=== PATIENT | female | born 1950 | race Caucasian/White ===

== ENCOUNTER → 2016-09-04 | Outpatient (CLI) | payer OTHER, MEDICARE ==
[~2016-09-04] MED LIST: ASPCH81X PO; ATOR-26 PO; CHOL20007 PO; CYAN10005 PO; GLIM4TAB2 PO; LEVO50TA6 PO; LSN25 PO; METF-384 PO; METO25TA3 PO; POTA1080 PO; SPR25 PO; SYN50 PO; TRAM-10 PO; URC10 PO
[2016-09-04 10:09] LABS: BASO % 0.3 %; BASO ABS # 0.02 K/uL (0-0.2); COMPLETE YES; EOS % 5.8 %; HEMATOCRIT 40.6 % (37-47); IG% 0.4 %; LYMPH % 30.4 %; MEAN CELL VOLUME 91.4 fL (80-100); MEAN CORPUSCULAR HEMOGLOBIN 30.4 pg (25-34); MEAN CORPUSCULAR HGB CONC 33.3 g/dl (32-36); MEAN PLATELET VOLUME 11.5 fL (7.4-10.4); MONO % 8.4 %; NEUT % 54.7 %; PLATELET COUNT 200 K/uL (130-400); RED BLOOD COUNT 4.44 M/uL (4.2-5.4); WHITE BLOOD COUNT 6.91 K/uL (4.8-10.8)
[2016-09-04 10:13] LABS: ESTIMATED AVERAGE GLUCOSE 180 mg/dl; HA1C FLAG Normal (Normal)
[2016-09-04 10:27] LABS: URINE APPEARANCE CLEAR (CLEAR); URINE BILIRUBIN NEG (NEG); URINE COLOR YELLOW; URINE EPITHELIAL CELL AUTO 20-30 /lpf (0-5); URINE NITRITE NEG (NEG); URINE SPECIFIC GRAVITY 1.021 (1.000-1.030); UROBILINOGEN NEG (NEG)
[2016-09-04 10:40] LABS: MANUAL MICROSCOPIC REQUIRED? NO; REVIEW REQ? NO
[2016-09-04 10:46] LABS: CALCIUM 9.7 mg/dl (8.5-10.1)
[2016-09-04 10:50] LABS: BLOOD UREA NITROGEN 28 mg/dl (7-18); BUN/CREATININE RATIO 20.1 (10-20); CARBON DIOXIDE 29 mmol/L (21-32); CHLORIDE 103 mmol/L (98-107); GLUCOSE 163 mg/dl (70-99); POTASSIUM 4.7 mmol/L (3.5-5.1); SODIUM 139 mmol/L (136-145)
[2016-09-04 10:54] LABS: CHOLESTEROL/HDL RATIO 3.4
--- NOTE | 2016-09-12 07:35 | CODING QUERY MEDICAL NECESSITY ---
CQSUPPORTING DIAGNOSIS NEEDED A supporting diagnosis is required for the test/procedure performed on this patient in order for us to be reimbursed by the patient's insurance. Please provide a supporting diagnosis for the following test/procedure listed below next to the test name along with your signature. *If there is no additional diagnosis for this patient that would support the following test/procedure please document that below next to the test/procedure. Test(s)/Procedure(s) that require a supporting diagnosis: GABRIELA 09/04/16 URINE CULTURE Provider Signature: Date: Thank you Mary Echeverria [employer] Once completed, please kindly fax back to [phone] For questions please call [phone]
== END | disposition home or self-care (01) ==
LOC: C.LAB 09:15
PROVIDERS: ATTEND Internal Medicine Cardiovascular Disease
DX: E11.9 Type 2 diabetes mellitus without complications (principal); E78.00 Pure hypercholesterolemia, unspecified; N39.0 Urinary tract infection, site not specified

== ENCOUNTER → 2017-01-13 | Outpatient (CLI) | payer OTHER, MEDICARE ==
[~2017-01-13] MED LIST changes: -CHOL20007 PO; -CYAN10005 PO; -GLIM4TAB2 PO; -LEVO50TA6 PO; -TRAM-10 PO; -URC10 PO
[2017-01-13 10:57] LABS: BLOOD UREA NITROGEN 31 mg/dl (7-18); BUN/CREATININE RATIO 22.1 (10-20); CALCIUM 9.8 mg/dl (8.5-10.1); CARBON DIOXIDE 29 mmol/L (21-32); CHLORIDE 96 mmol/L (98-107); GLUCOSE 419 mg/dl (70-99); POTASSIUM 4.5 mmol/L (3.5-5.1); SODIUM 134 mmol/L (136-145)
[2017-01-13 10:59] LABS: ESTIMATED AVERAGE GLUCOSE 346 mg/dl; HA1C FLAG Normal (Normal)
[2017-01-13 11:12] LABS: BETA-HYDROXYBUTYRATE 8.64 mg/dL (0.2-2.81)
[2017-01-13 11:50] LABS: RATIO 65.5 mcg/mg (0-30.0)
== END | disposition home or self-care (01) ==
LOC: C.LAB 08:36
PROVIDERS: ATTEND Internal Medicine
DX: E11.9 Type 2 diabetes mellitus without complications (principal)

== ENCOUNTER → 2017-02-03 | Outpatient (CLI) | payer OTHER, MEDICARE | END | disposition home or self-care (01) | LOC: C.LAB 11:37 | PROVIDERS: ATTEND Internal Medicine | DX: E78.00 Pure hypercholesterolemia, unspecified (principal) ==

== ENCOUNTER → 2017-03-27 | Day surgery (SDC) | payer OTHER, MEDICARE ==
[2017-03-19 08:41] VITALS: Ht 158.8 cm; Wt 100.0 kg
[~2017-03-27] VITALS: Ht 158.8 cm; Wt 100.0 kg
[~2017-03-27] MED LIST changes: +ATROPINE SULFATE 0.1 MG/ML 5ML SYR IV PRN; +BUPIVACAINE 0.5 % 5 MG/1 ML PF 10ML VIAL ONE; +CHOL20007 PO; +CLINDAMYCIN PHOS 150 MG/ML 2 ML VIAL IV SCH; +CYAN10005 PO; +EpHEDrine SULFATE INJ 50 MG/ML AMP IV PRN; +FENTANYL CITRATE INJ 50 MCG/1 ML 2 ML VIAL IV PRN; +FENTANYL CITRATE INJ 50 MCG/1 ML 2 ML VIAL ONE; +GLIM4TAB2 PO; +LACTATED RINGER'S 1000ML 1,000 ML IV SCH; +LEVO50TA6 PO; +LIDOCAINE HCL 1% 20 ML VIAL ONE; +LIDOCAINE HCL 2% 2 ML VIAL (20MG/ML) ONE; -LSN25 PO; +MIDAZOLAM HCL 1 MG/ML 2ML VIAL ONE; +ONDANSETRON INJ 2 MG/ML 2 ML VIAL IV PRN; +ONDANSETRON INJ 2 MG/ML 2 ML VIAL ONE; +OXYCODONE/ACETAMINOPHEN 5-325 TAB PO PRN; -POTA1080 PO; +PROPOFOL IV EMULSION 10 MG/ML 20 ML VIAL IV ONE; +SODIUM CHLORIDE 0.9% 1000ML 1,000 ML IV SCH; -SYN50 PO; +TRAM-10 PO; +URC10 PO
--- NOTE | 2017-03-27 06:47 | History & Physical Bridge - SC ---
H&P Re-Evaluation Bridge Note: I have examined the patient, reviewed the History & Physical and in the interval since the performance of the History & Physical I have noted the following changes of clinical significance: No changes noted
[2017-03-27 07:37] VITALS: TEMP 36.6
--- NOTE | 2017-03-27 07:40 | [facility] Post Operative Brief Note ---
Immediate Operative Summary Operative Date Mar 27, 2017. Pre-Operative Diagnosis Left Carpal Tunnel Syndrome Post-Operative Diagnosis Same Procedure(s) Performed Left Carpal Tunnel Release Surgeon Dr. Wells Escalation Engineer Surgeon(s) Mikal Moreno PA-C Estimated Blood Loss 0 Findings ABOVE Specimens None Anesthesia LOCAL IV SEDATION Complication(s) None Disposition
--- NOTE | 2017-03-27 07:44 | Discharge Instructions-SurgCtr ---
Discharge Instructions Date of Service Mar 27, 2017. Visit Reason for Visit: Left Carpal Tunnel Syndrome Discharge Discharge Diagnosis / Problem: SAME ABOVE Discharge Goals Goal(s): Decrease discomfort, Improve function Medications Stopped Medications Name(s): Metformin held x 48 hrs. Activity Recommendations Activity Limitations: as noted below Lifting Limitations: until after follow-up appointment Exercise/Sports Limitations: until after follow-up appointment Shower/Bathe: keep incision dry Anesthesia . Post Anesthesia Instructions: If you have had General Anesthesia or IV Sedation: * Do not drive today. * Resume driving when surgeon permits. * Do not make important decisions or sign legal documents today. * Call surgeon for: 1. Temperature elevations greater than 101 degrees F. 2. Uncontrollable pain. 3. Excessive bleeding. 4. Persistent nausea and vomiting. 5. Medication intolerance (nausea, vomiting or rash). * For nausea and vomiting use only clear liquids such as: tea, soda, bouillon until nausea subsides, then gradually increase diet as tolerated. * If you have any concerns or questions, call your surgeon's office. If physician is unavailable and it is an emergency, call 911 or go to the nearest emergency room. . Instructions / Follow-Up Instructions / Follow-Up MEDICATIONS: * Resume previous medications unless instructed otherwise by your surgeon. * Always take pain medication on a full stomach or with food to avoid upset stomach. * Do not drink alcohol or drive while taking narcotics. * Ibuprofen or Tylenol may be taken if narcotic not needed. SPECIAL CARE INSTRUCTIONS: __ None _X_ Keep extremity elevated and iced x 48 hours; apply ice 20-30 minutes 8-10 times/day. May remove at night. __ Sling __24 hrs/day __ Remove at night __ Shoulder Immobilizer __ 24 hrs/day __ Remove at night _X_ Dressing _X_ Maintain until seen in office, may shower with plastic over site __ Remove dressings in 24-48 hours and then may shower __ Cover incisions with band-aids after showering __ Do not remove steri-strips Call physician if chills or temperature rises above 102 degrees or pain unrelieved by prescribed pain medications at . . Diet Recommendations Home Diet: no limitations Procedures Procedures Performed: Left Carpal Tunnel Release Pending Studies Studies pending at discharge: no Medical Emergencies . Who to Call and When: Medical Emergencies: If at any time you feel your situation is an emergency, please call 911 immediately. . Non-Emergent Contact Non-Emergency issues call your: Primary Care Provider . . "Provider Documentation" section prepared by Kan Moreno. .
--- NOTE | 2017-03-27 07:54 | OPERATIVE REPORT ---
DATE OF OPERATION: 03/27/2017 PREOPERATIVE DIAGNOSIS: Left carpal tunnel syndrome. POSTOPERATIVE DIAGNOSIS: Same. PROCEDURE: Decompression median nerve release transverse carpal ligament, left wrist. SURGEON: Dr. Wells. CURRICULUM ASSISTANT PRINCIPAL: Kan Moreno PA-C. ANESTHESIOLOGIST: Dr. Gonzalez. ANESTHESIA: Local with IV sedation. DRAINS: None. COMPLICATIONS: None. CONDITION: The patient tolerated the procedure well and returned to the recovery room in apparent satisfactory condition. INDICATIONS FOR SURGERY: Zaynab is a 67-year-old female who has had increasing pain, numbness and tingling in left hand consistent with carpal tunnel syndrome. Went over treatment options and she elected to go ahead and proceed with surgery. Procedure, expected outcome, side effects and risks were all explained in detail. PROCEDURE: The patient was taken to the OR at which time she was placed supine on the operating table. The left hand was prepped and draped in the usual sterile fashion for this surgery. The anticipated incision site was infiltrated with 1% Xylocaine. A forearm tourniquet was placed on the arm and tourniquet was placed up to 250 mmHg. Incision was made vertically over the transverse carpal tunnel ligament. Dissection was done down until the palmar fascia was identified and divided with a 15-blade. The transverse carpal ligament was identified and also divided with the 15-blade and upbiting scissors. A small portion of the forearm fascia was divided also. Electrocautery was used to control any areas of bleeding. The nerve was freed up from any scar tissue and adequately decompressed. The wound then was copiously irrigated. It was closed then with interrupted 4-0 nylon sutures. Marcaine without Epinephrine was placed in the skin edges. It was closed in a layered fashion. We placed a sterile dressing of Xeroform, 4 x 4, volar splint, and an Theodroe bandage. DISPOSITION: The patient was returned back to the recovery room in apparent satisfactory condition. I attest to the content of the Intraoperative Record and any orders documented therein. Any exception s are noted below.
[2017-03-27 08:11] VITALS: BP 109/74; PULSE 64; O2SAT 95
--- NOTE | 2017-03-27 08:18 | Anesthesia Progress Nt - [facility] ---
Anesthesia Post Op Note Date & Time Mar 27, 2017 at 08:18 Vital Signs Pain Intensity: 0 Vital Signs Past 12 Hours Date Time Temp Pulse Resp B/P (MAP) Pulse Ox O2 Delivery O2 Flow Rate FiO2 03/27/17 08:11 64 20 109/74 (86) 95 Room Air 03/27/17 07:37 36.6 72 16 100/65 (77) 98 Room Air 03/27/17 06:38 36.4 79 20 106/77 (87) 95 Room Air Notes Mental Status: alert / awake / arousable, participated in evaluation Pt Amnestic to Procedure: Yes Nausea / Vomiting: adequately controlled Pain: adequately controlled Airway Patency, RR, SpO2: stable & adequate BP & HR: stable & adequate Hydration State: stable & adequate Anesthetic Complications: no major complications apparent
== END | disposition home or self-care (01) ==
LOC: X.SURG 06:24
PROVIDERS: ATTEND Orthopaedic Surgery
DX: G56.02 Carpal tunnel syndrome, left upper limb (principal); I25.2 Old myocardial infarction; I10 Essential (primary) hypertension; E78.00 Pure hypercholesterolemia, unspecified; E11.9 Type 2 diabetes mellitus without complications; E03.9 Hypothyroidism, unspecified; Z79.82 Long term (current) use of aspirin; Z79.84 Long term (current) use of oral hypoglycemic drugs; Z79.899 Other long term (current) drug therapy

== ENCOUNTER → 2017-04-04 | Outpatient (CLI) | payer OTHER, MEDICARE ==
[~2017-04-04] MED LIST changes: -ATROPINE SULFATE 0.1 MG/ML 5ML SYR IV PRN; -BUPIVACAINE 0.5 % 5 MG/1 ML PF 10ML VIAL ONE; -CLINDAMYCIN PHOS 150 MG/ML 2 ML VIAL IV SCH; -EpHEDrine SULFATE INJ 50 MG/ML AMP IV PRN; -FENTANYL CITRATE INJ 50 MCG/1 ML 2 ML VIAL IV PRN; -FENTANYL CITRATE INJ 50 MCG/1 ML 2 ML VIAL ONE; -LACTATED RINGER'S 1000ML 1,000 ML IV SCH; -LIDOCAINE HCL 1% 20 ML VIAL ONE; -LIDOCAINE HCL 2% 2 ML VIAL (20MG/ML) ONE; -MIDAZOLAM HCL 1 MG/ML 2ML VIAL ONE; -ONDANSETRON INJ 2 MG/ML 2 ML VIAL IV PRN; -ONDANSETRON INJ 2 MG/ML 2 ML VIAL ONE; -OXYCODONE/ACETAMINOPHEN 5-325 TAB PO PRN; -PROPOFOL IV EMULSION 10 MG/ML 20 ML VIAL IV ONE; -SODIUM CHLORIDE 0.9% 1000ML 1,000 ML IV SCH
--- NOTE | 2017-04-04 13:43 | MAMMOGRAPHY REPORT ---
BILATERAL DIGITAL SCREENING MAMMOGRAM TOMOSYNTHESIS WITH CAD: 04/04/2017 CLINICAL HISTORY: Routine screening. TECHNIQUE: Breast tomosynthesis in addition to standard 2D mammography was performed. Current study was also evaluated with a Computer Aided Detection (CAD) system. COMPARISON: Comparison is made to exams dated: 04/03/2016 mammogram, 03/17/2015 mammogram, 03/11/2014 mammogram, 03/06/2013 mammogram, 03/05/2009 mammogram - [facility], and 03/04/2008 . BREAST COMPOSITION: The tissue of both breasts is almost entirely fatty. FINDINGS: No suspicious masses, calcifications, or areas of architectural distortion are noted in ei ther breast. There has been no significant interval change compared to prior exams. Scattered bilater al benign-appearing calcifications are not significantly changed. A linear scar marker denotes a sca r on the left upper outer breast. Circular markers kendrick bilateral skin moles. IMPRESSION: ACR BI-RADS CATEGORY 2: BENIGN There is no mammographic evidence of malignancy. A 1 year screening mammogram is recommended. The pa tient will receive written notification of the results. Approximately 10% of breast cancers are not detected with mammography. A negative mammographic report should not delay biopsy if a clinically suggestive mass is present. Rocio Cosme M.D. /:04/04/2017 08:59:52 Practice Support Specialist: Fady WADE(Alexandra)(M), [facility] letter sent: Normal 1/2 BI-RADS Code: ACR BI-RADS Category 2: Benign
== END | disposition home or self-care (01) ==
LOC: C.MAMM 08:12
PROVIDERS: ATTEND Obstetrics & Gynecology
DX: Z12.31 Encounter for screening mammogram for malignant neoplasm of breast (principal)

== ENCOUNTER → 2017-05-22 | Day surgery (SDC) | payer OTHER, MEDICARE ==
[2017-05-14 09:48] VITALS: Ht 158.8 cm; Wt 100.0 kg
[~2017-05-22] VITALS: Ht 158.8 cm; Wt 100.0 kg
[~2017-05-22] MED LIST changes: +ATROPINE SULFATE 0.1 MG/ML 5ML SYR IV PRN; +BUPIVACAINE 0.5 % 5 MG/1 ML PF 10ML VIAL ONE; +CLINDAMYCIN 600MG IV SCH; +CYAN100020 PO; -CYAN10005 PO; +EpHEDrine SULFATE INJ 50 MG/ML AMP IV PRN; +FENTANYL CITRATE INJ 50 MCG/1 ML 2 ML VIAL IV PRN; +FENTANYL CITRATE INJ 50 MCG/1 ML 2 ML VIAL ONE; +LACTATED RINGER'S 1000ML 1,000 ML IV SCH; +LIDOCAINE HCL 1% 20 ML VIAL ONE; +LIDOCAINE HCL 2% 2 ML VIAL (20MG/ML) ONE; +MIDAZOLAM HCL 1 MG/ML 2ML VIAL ONE; +ONDANSETRON INJ 2 MG/ML 2 ML VIAL IV PRN; +ONDANSETRON INJ 2 MG/ML 2 ML VIAL ONE; +OXYCODONE/ACETAMINOPHEN 5-325 TAB PO PRN; +PROPOFOL IV EMULSION 10 MG/ML 20 ML VIAL IV ONE; +SODIUM CHLORIDE 0.9% 1000ML 1,000 ML IV SCH
--- NOTE | 2017-05-22 07:37 | [facility] Post Operative Brief Note ---
Immediate Operative Summary Operative Date May 22, 2017. Pre-Operative Diagnosis Right Carpal Tunnel Syndrome Post-Operative Diagnosis Same Procedure(s) Performed Right Carpal Tunnel Release Surgeon Dr. Wells Network Engineer Administrator Surgeon(s) Mikal Moreno PA-C Estimated Blood Loss None Findings ABOVE Specimens None Anesthesia LOCAL IV SEDATION Complication(s) None Disposition
--- NOTE | 2017-05-22 07:42 | Discharge Instructions-SurgCtr ---
Discharge Instructions Date of Service May 22, 2017. Visit Reason for Visit: Right Carpal Tunnel Syndrome Discharge Discharge Diagnosis / Problem: SAME ABOVE Discharge Goals Goal(s): Decrease discomfort, Improve function Medications Stopped Medications Name(s): Metformin Stopped for 2 days. Activity Recommendations Activity Limitations: as noted below Lifting Limitations: until after follow-up appointment Exercise/Sports Limitations: until after follow-up appointment Shower/Bathe: keep incision dry Anesthesia . Post Anesthesia Instructions: If you have had General Anesthesia or IV Sedation: * Do not drive today. * Resume driving when surgeon permits. * Do not make important decisions or sign legal documents today. * Call surgeon for: 1. Temperature elevations greater than 101 degrees F. 2. Uncontrollable pain. 3. Excessive bleeding. 4. Persistent nausea and vomiting. 5. Medication intolerance (nausea, vomiting or rash). * For nausea and vomiting use only clear liquids such as: tea, soda, bouillon until nausea subsides, then gradually increase diet as tolerated. * If you have any concerns or questions, call your surgeon's office. If physician is unavailable and it is an emergency, call 911 or go to the nearest emergency room. . Instructions / Follow-Up Instructions / Follow-Up MEDICATIONS: * Resume previous medications unless instructed otherwise by your surgeon. * Always take pain medication on a full stomach or with food to avoid upset stomach. * Do not drink alcohol or drive while taking narcotics. * Ibuprofen or Tylenol may be taken if narcotic not needed. SPECIAL CARE INSTRUCTIONS: __ None _X_ Keep extremity elevated and iced x 48 hours; apply ice 20-30 minutes 8-10 times/day. May remove at night. __ Sling __24 hrs/day __ Remove at night __ Shoulder Immobilizer __ 24 hrs/day __ Remove at night _X_ Dressing _X_ Maintain until seen in office, may shower with plastic over site __ Remove dressings in 24-48 hours and then may shower __ Cover incisions with band-aids after showering __ Do not remove steri-strips Call physician if chills or temperature rises above 102 degrees or pain unrelieved by prescribed pain medications at . . Diet Recommendations Home Diet: resume previous diet Procedures Procedures Performed: Right Carpal Tunnel Release Pending Studies Studies pending at discharge: no Medical Emergencies . Who to Call and When: Medical Emergencies: If at any time you feel your situation is an emergency, please call 911 immediately. . Non-Emergent Contact Non-Emergency issues call your: Primary Care Provider . . "Provider Documentation" section prepared by Kan Moreon. .
--- NOTE | 2017-05-22 07:53 | OPERATIVE REPORT ---
DATE OF OPERATION: 05/22/2017 PREOPERATIVE DIAGNOSIS: Right carpal tunnel syndrome. POSTOPERATIVE DIAGNOSIS: Same. PROCEDURE PERFORMED: Decompression, median nerve release, transverse carpal ligament. SURGEON: Darian Wells MD. STOCK WORKER: Kan Moreno PA-C. ANESTHESIOLOGIST: Dr. Dey. ANESTHESIA: Local with IV sedation. DRAINS: None. COMPLICATIONS: None. CONDITION: The patient tolerated the procedure well and returned to the recovery room in apparent satisfactory condition. INDICATIONS FOR SURGERY: Zaynab is a 67-year-old female having carpal tunnel complaints on the right hand. We went over treatment options and elected to go ahead and proceed with surgery. Procedure, expected outcomes, and side effects were all explained in detail. PROCEDURE: The patient was taken to the OR at which time Zaynab was placed supine on the operating table. The right hand was prepped and draped in the usual sterile fashion for this surgery. The anticipated incision site was infiltrated with 1% Xylocaine. A forearm tourniquet was placed on the arm and tourniquet was placed up to 250 mmHg. Incision was made vertically over the transverse carpal tunnel ligament. Dissection was done down until the palmar fascia was identified and divided with a 15-blade. The transverse carpal ligament was identified and also divided with the 15-blade and upbiting scissors. A small portion of the forearm fascia was divided also. Electrocautery was used to control any areas of bleeding. The nerve was freed up from any scar tissue and adequately decompressed. The wound then was copiously irrigated. It was closed then with interrupted 4-0 nylon sutures. Marcaine without Epinephrine was placed in the skin edges. It was closed in a layered fashion. We placed a sterile dressing of Xeroform, 4 x 4, volar splint, and an Theodore bandage. DISPOSITION: The patient was returned back to the recovery room in apparent satisfactory condition. I attest to the content of the Intraoperative Record and any orders documented therein. Any exception s are noted below.
[2017-05-22 08:32] VITALS: BP 92/66; PULSE 61; O2SAT 96
--- NOTE | 2017-05-22 09:02 | Anesthesia Progress Nt - [facility] ---
Anesthesia Post Op Note Date & Time May 22, 2017 at 09:02 Vital Signs Pain Intensity: 0 Vital Signs Past 12 Hours Date Time Temp Pulse Resp B/P (MAP) Pulse Ox O2 Delivery O2 Flow Rate FiO2 05/22/17 08:32 61 14 92/66 (75) 96 Room Air 05/22/17 08:20 36.6 62 14 88/57 (67) 96 Room Air 05/22/17 07:55 60 14 89/60 (70) 96 Room Air 05/22/17 07:49 36.6 57 12 89/56 (67) 95 Room Air 05/22/17 06:35 36.5 76 16 120/83 (95) 96 Room Air Notes Mental Status: alert / awake / arousable, participated in evaluation Pt Amnestic to Procedure: Yes Nausea / Vomiting: adequately controlled Pain: adequately controlled Airway Patency, RR, SpO2: stable & adequate BP & HR: stable & adequate Hydration State: stable & adequate Anesthetic Complications: no major complications apparent
== END | disposition home or self-care (01) ==
LOC: X.SURG 06:27
PROVIDERS: ATTEND Orthopaedic Surgery
DX: G56.01 Carpal tunnel syndrome, right upper limb (principal); I25.10 Atherosclerotic heart disease of native coronary artery without angina pectoris; I10 Essential (primary) hypertension; E11.9 Type 2 diabetes mellitus without complications; E66.9 Obesity, unspecified; E78.00 Pure hypercholesterolemia, unspecified; I25.2 Old myocardial infarction; Z96.659 Presence of unspecified artificial knee joint; Z90.49 Acquired absence of other specified parts of digestive tract; Z79.82 Long term (current) use of aspirin

== ENCOUNTER → 2017-07-16 | Outpatient (CLI) | payer OTHER, MEDICARE ==
[~2017-07-16] MED LIST changes: -ATROPINE SULFATE 0.1 MG/ML 5ML SYR IV PRN; -BUPIVACAINE 0.5 % 5 MG/1 ML PF 10ML VIAL ONE; -CLINDAMYCIN 600MG IV SCH; -EpHEDrine SULFATE INJ 50 MG/ML AMP IV PRN; -FENTANYL CITRATE INJ 50 MCG/1 ML 2 ML VIAL IV PRN; -FENTANYL CITRATE INJ 50 MCG/1 ML 2 ML VIAL ONE; -LACTATED RINGER'S 1000ML 1,000 ML IV SCH; -LIDOCAINE HCL 1% 20 ML VIAL ONE; -LIDOCAINE HCL 2% 2 ML VIAL (20MG/ML) ONE; -METO25TA3 PO; +METO25TA4 PO; -MIDAZOLAM HCL 1 MG/ML 2ML VIAL ONE; -ONDANSETRON INJ 2 MG/ML 2 ML VIAL IV PRN; -ONDANSETRON INJ 2 MG/ML 2 ML VIAL ONE; -OXYCODONE/ACETAMINOPHEN 5-325 TAB PO PRN; -PROPOFOL IV EMULSION 10 MG/ML 20 ML VIAL IV ONE; -SODIUM CHLORIDE 0.9% 1000ML 1,000 ML IV SCH
[2017-07-16 10:10] LABS: ALT/SGPT 21 U/L (12-78); AST/SGOT 15 U/L (15-37); BLOOD UREA NITROGEN 18 mg/dl (7-18); CALCIUM 9.4 mg/dl (8.5-10.1); CARBON DIOXIDE 29 mmol/L (21-32); CHOLESTEROL 140 mg/dl (0-200); CREATININE 1.08 mg/dl (0.60-1.20); GLUCOSE 138 mg/dl (70-99); POTASSIUM 4.3 mmol/L (3.5-5.1); SODIUM 140 mmol/L (136-145)
[2017-07-16 10:19] LABS: LDL CHOLESTEROL CALCULATED 68 mg/dl; TRANSFERRIN 243 mg/dl (200-360)
== END | disposition home or self-care (01) ==
LOC: C.LAB 08:40
PROVIDERS: ATTEND Nurse Practitioner Family
DX: E11.21 Type 2 diabetes mellitus with diabetic nephropathy (principal); Z98.890 Other specified postprocedural states; E78.00 Pure hypercholesterolemia, unspecified; I10 Essential (primary) hypertension

== ENCOUNTER → 2017-12-03 | Outpatient (CLI) | payer OTHER, MEDICARE ==
[~2017-12-03] MED LIST changes: +SPIR25TA6 PO; -SPR25 PO; -TRAM-10 PO
[2017-12-03 14:12] LABS: HEMOGLOBIN A1C 7.5 % (4.5-5.6)
[2017-12-03 14:28] LABS: BLOOD UREA NITROGEN 28 mg/dl (7-18); CALCIUM 9.1 mg/dl (8.5-10.1); CARBON DIOXIDE 27 mmol/L (21-32); CREATININE 1.24 mg/dl (0.60-1.20); GLUCOSE 170 mg/dl (70-99); POTASSIUM 5.2 mmol/L (3.5-5.1); SODIUM 138 mmol/L (136-145)
== END | disposition home or self-care (01) ==
LOC: C.LABPBG 10:02
PROVIDERS: ATTEND Internal Medicine
DX: N20.0 Calculus of kidney (principal)

== ENCOUNTER 2020-02-29 09:37 | Inpatient (IN) ==
[2020-02-29] MEDS ORDERED: KETOROLAC TROMETHAMINE 15 MG/ML VIAL IV ONE (09:55)
--- NOTE | 2020-02-29 10:04 | Emergency Department Note ---
Impression & Plan Closed fracture of left hip, Acute UTI ED Provider Note Provider: Siddhartha Rodriguez MD DATE OF SERVICE:02/29/2020 CHIEF COMPLAINT: Fall HISTORY OF PRESENT ILLNESS: Patient is a 69-year-old female history of CAD, diabetes, renal issues, hypertension, distal left femur fracture knee replacement presenting today after a fall. Patient states this morning she was going out to walk her dog when she slipped on the ramp outside of her house C states he believes it was a bit wet. Denies any presyncopal symptoms at that time. Patient states that she fell but denies striking her head. Patient s tates she was in flip-flops she thinks may have contributed to her he did not have anything to eat since last night. Patient was unable to ambulate and ambulance was called. Having significant left hip pain. Patient has any numbness or tingling in the lower extremities. Patient had injury to the upper extremities or difficulty breathing or chest or abdomen pain at this time. Patient has not had anything yet for pain prior to arrival and states she has significant pain of the left hip worse with movement. Patient requesting Toradol for pain REVIEW OF SYSTEMS: A total of 10 review of systems was obtained and negative except as stated above in the HPI. PAST MEDICAL HISTORY: As noted above MEDICATIONS: Reviewed home medications, patient significantly on aspiri SOCIAL HISTORY: Retired, lives at home PHYSICAL EXAM: GENERAL: alert and oriented in no acute distress on stretcher Head: normocephalic and atraumatic EYES: No injection, discharge or icterus. NECK: Trachea midline. ENT: Mucous membranes pink and moist. LUNGS: Airway patent. No retractions. Breath sounds clear HEART: Regular rate and rhythm. No chest wall tenderness ABDOMEN: Soft and non-tender, without guarding or rebound. SKIN: Acyanotic, warm, dry, without rashes EXTREMITIES: Without swelling, tenderness or deformity except for some slight tenderness of the left hip vertically worse with any range of motion here. 1+ DP pulse of the left foot and neuro intact in the left lower extremity. NEUROLOGICAL: No aphasia. No facial droop or slurred speech. Sensation to gross touch normal. EK bpm normal sinus rhythm without PVC. There is some slight baseline artifact but no clear acute ST segment elevations noted. Normal QTC. Some lateral ST and T wave flattening is noted as well as T wave inversion in lead III, aVF, and lead II. CONTINUOUS CARDIAC MONITORING: was ordered and showed a heart rate of 78 bpm in normal sinus rhythm GCS 15. Patient's laboratory studies and imaging reviewed. Differential includes Fracture, dislocation, contusion, intra-abdominal, pneumothorax, intrathoracic, intracranial, neurologic, compartment syndrome, rhabdomyolysis, as well as other pathologies. IMPRESSION/MEDICAL DECISION MAKING: Patient presents after what sounds are, cannot fall and did not strike her head. Unfortunately having significant left hip pain. X-ray of the hip was obtained. Basic labs were obtained and Orellana was placed and per her request Toradol was initially given as pain control. Patient not having significant evidence of trauma or discomfort in the other extremities or in the thorax/abdomen. Neuro intact in the left lower extremity. Orellana was placed and cath urine with a few epithelials but concern for possible infection especially with nitrate. We will give a dose of antibiotic at this time. Some mild CKD noted appears near baseline. No significant lecture abnormalities. Elevated glucose is noted. Given a dose of Rocephin given the question of UTI and she does report a little bit of urinary frequency the last 24 hours. Discussed with orthopedics who plan for possible surgical intervention tomorrow based on schedule. Will discuss with the hospitalist for further care as an inpatient and surgical consultation for repair of the left hip. Patient was resting comfortably did not require any additional pain medicine while here in the ER. DIAGNOSIS: Left hip fracture, acute UTI DISPOSITION: Hospitalist will evaluate Patient was agreeable with this plan. Past Med/Surg History Medical History (Updated 02/29/20 @ 12:30 by Siddhartha Rodriguez M.D.) Asymptomatic carotid artery stenosis Colon polyps Coronary artery arteriosclerosis Diabetes mellitus Diabetic nephropathy associated with type 2 diabetes mellitus Hypercholesterolemia Hypertension Hypothyroidism Ischemic cardiomyopathy Lichen sclerosus et atrophicus Microalbuminuria due to type 2 diabetes mellitus Nephrolithiasis Obesity Surgical History History of sleeve gastrectomy Social History Smoking Status: Never smoker Second Hand Exposure: No; Do You Dip or Chew Tobacco: No; Tobacco Cessation Education Requested by Patient: No Hx Alcohol Use: Yes Hx Substance Use: No Preferred Language: [place] Communication Ability: Effective Evs Manager Required: No Beliefs That Will Affect Care: None Current Living Situation: Spouse and Family Current Living Situation Comment: and son Other Information That Helps Us Care for You: No Feels Safe at Home: Yes Safety Concerns: Feels Safe At This Time Assistive Devices: Cane and Glasses Allergies Allergies Allergy/AdvReac Type Severity Reaction Status Date / Time amoxicillin Allergy Intermediate RASH Verified 02/29/20 11:07 fexofenadine Allergy Intermediate HIVES,SOB Verified 02/29/20 11:07 nickel Allergy Intermediate RASH, Verified 02/29/20 11:07 ITCHING Home Meds Home Medications Medication Instructions Recorded Confirmed blood sugar diagnostic #10 ea 12/30/18 06/10/19 blood-glucose meter #1 ea 12/30/18 06/10/19 cholecalciferol (vitamin D3) 25 1,000 units PO BID cap 12/30/18 02/29/20 mcg (1,000 unit) capsule lancets 33 gauge #100 ea 12/30/18 11/17/19 naproxen sodium 220 mg tablet 220 mg PO Q12H PRN 12/30/18 02/29/20 blood sugar diagnostic #10 ea 12/31/18 06/10/19 blood-glucose meter #1 ea 12/31/18 06/10/19 cyanocobalamin (vitamin B-12) 1,000 mcg PO QAM tab 12/31/18 02/29/20 1,000 mcg tablet lancets #50 ea 12/31/18 11/20/19 aspirin [Adult Low Dose Aspirin] 81 mg PO PM 02/29/20 02/29/20 atorvastatin 80 mg PO PM 02/29/20 02/29/20 clobetasol 1 appln TOP DIRECTED 02/29/20 02/29/20 levothyroxine 50 mcg PO QAM 02/29/20 02/29/20 metoprolol succinate 25 mg PO QAM 02/29/20 02/29/20 potassium citrate 20 meq PO QAM 02/29/20 02/29/20 Previous Rx's Medication Instructions Recorded glimepiride 4 mg tablet 4 mg PO BID #180 tab 11/18/19 metformin 1,000 mg tablet 1,000 mg PO BID #180 tab 11/18/19 spironolactone 25 mg tablet 25 mg PO BID #180 tab 11/18/19 Results & Data (ED) Vital Signs Vital Signs - 24 hr 02/29/20 09:55 02/29/20 10:00 02/29/20 11:32 Temperature 36.8 C Temperature Source Oral Pulse Rate 69 Pulse Rate [Left Finger] 75 Respiratory Rate 20 20 Blood Pressure 118/83 Blood Pressure [Right Arm] 116/72 Blood Pressure Mean 94 Blood Pressure Mean [Right Arm] 86 Pulse Oximetry 95 95 96 Oxygen Delivery Method Room Air Room Air Sepsis Recent Fever Within 48 Hours No Sepsis New/Unexplained Change in Mental Status N/A Sepsis Action Taken by Nursing No Action Required Laboratory Data Result diagrams: 02/29/20 09:50 02/29/20 09:50 Lab Results 02/29/20 02/29/20 02/29/20 Range/Units 09:50 09:50 09:50 WBC 10.13 (4.8-10.8) K/uL RBC 4.78 (4.2-5.4) M/uL Hgb 14.8 (12.0-16.0) g/dL Hct 44.8 (37-47) % MCV 93.7 (80-100) fL MCH 31.0 (25-34) pg MCHC 33.0 (32-36) g/dL RDW Std Deviation 42.1 (36.4-46.3) fL RDW Coeff of Krysta 12.4 (11.5-14.5) % Plt Count 191 (130-400) K/uL MPV 11.7 H (7.4-10.4) fL Immature Gran % (Auto) 0.6 % Neut % (Auto) 73.3 % Lymph % (Auto) 17.5 % Bartholomew % (Auto) 5.5 % Eos % (Auto) 2.8 % Baso % (Auto) 0.3 % Neut # (Auto) 7.43 H (1.4-6.5) K/uL Lymph # (Auto) 1.77 (1.2-3.4) K/uL Bartholomew # (Auto) 0.56 (0.11-0.59) K/uL Eos # (Auto) 0.28 (0-0.5) K/uL Baso # (Auto) 0.03 (0-0.2) K/uL Immature Gran # (Auto) 0.06 H (0.00-0.02) K/uL PT 10.7 (9.0-12.0) Seconds INR 1.0 (0.9-1.1) APTT 20.3 L (21.0-31.0) Seconds PTT Ratio 0.7 Sodium 137 (136-145) mmol/L Potassium 4.5 (3.5-5.1) mmol/L Chloride 103 (98-107) mmol/L Carbon Dioxide 29 (21-32) mmol/L Anion Gap 5.0 (3-11) BUN 27 H (7-18) mg/dl Creatinine 1.35 H (0.6-1.2) mg/dl Est Cr Clr Drug Dosing 44.6 ml/min Est GFR ( Amer) 46.0 Est GFR (Non-Af Amer) 39.7 BUN/Creatinine Ratio 20.0 (10-20) Glucose 376 H* (70-99) mg/dl Calcium 9.2 (8.5-10.1) mg/dl Beta-Hydroxybutyric Acd 5.90 H (0.2-2.81) mg/dl Urine Color Urine Appearance (Clear) Urine pH (4.5-7.5) Ur Specific [place] (1.000-1.030) Urine Protein (Negative) Urine Glucose (UA) (Negative) Urine Ketones (Negative) Urine Blood (Negative) Urine Nitrite (Negative) Urine Bilirubin (Negative) Urine Urobilinogen (Negative) Ur Leukocyte Esterase (Negative) Urine WBC (Auto) (0-5) /hpf Urine RBC (Auto) (0-4) /hpf U Hyaline Cast (Auto) (0-5) /lpf U Epithel Cells (Auto) (0-5) /lpf Urine Bacteria (Auto) (Negative) 02/29/20 Range/Units 09:50 WBC (4.8-10.8) K/uL RBC (4.2-5.4) M/uL Hgb (12.0-16.0) g/dL Hct (37-47) % MCV (80-100) fL MCH (25-34) pg MCHC (32-36) g/dL RDW Std Deviation (36.4-46.3) fL RDW Coeff of Krysta (11.5-14.5) % Plt Count (130-400) K/uL MPV (7.4-10.4) fL Immature Gran % (Auto) % Neut % (Auto) % Lymph % (Auto) % Bartholomew % (Auto) % Eos % (Auto) % Baso % (Auto) % Neut # (Auto) (1.4-6.5) K/uL Lymph # (Auto) (1.2-3.4) K/uL Bartholomew # (Auto) (0.11-0.59) K/uL Eos # (Auto) (0-0.5) K/uL Baso # (Auto) (0-0.2) K/uL Immature Gran # (Auto) (0.00-0.02) K/uL PT (9.0-12.0) Seconds INR (0.9-1.1) APTT (21.0-31.0) Seconds PTT Ratio Sodium (136-145) mmol/L Potassium (3.5-5.1) mmol/L Chloride (98-107) mmol/L Carbon Dioxide (21-32) mmol/L Anion Gap (3-11) BUN (7-18) mg/dl Creatinine (0.6-1.2) mg/dl Est Cr Clr Drug Dosing ml/min Est GFR ( Amer) Est GFR (Non-Af Amer) BUN/Creatinine Ratio (10-20) Glucose (70-99) mg/dl Calcium (8.5-10.1) mg/dl Beta-Hydroxybutyric Acd (0.2-2.81) mg/dl Urine Color Yellow Urine Appearance Clear (Clear) Urine pH 5.0 (4.5-7.5) Ur Specific [place] 1.028 (1.000-1.030) Urine Protein 1+ H (Negative) Urine Glucose (UA) 3+ H (Negative) Urine Ketones Negative (Negative) Urine Blood Negative (Negative) Urine Nitrite Positive A (Negative) Urine Bilirubin Negative (Negative) Urine Urobilinogen Negative (Negative) Ur Leukocyte Esterase 1+ H (Negative) Urine WBC (Auto) >30 H (0-5) /hpf Urine RBC (Auto) 0-4 (0-4) /hpf U Hyaline Cast (Auto) 10-30 H (0-5) /lpf U Epithel Cells (Auto) 5-10 H (0-5) /lpf Urine Bacteria (Auto) 3+ H (Negative) Administered Medications Acetaminophen (Acetaminophen 500 Mg Tab) 1,000 mg PO Q8H PRN PRN Reason: pain/fever Stop: 03/30/20 13:27 Last Admin: 02/29/20 13:45 Dose: 1,000 mg Documented by: [id number] Insulin Aspart (Insulin Aspart 100 Units/Ml 3 Ml Pen) 0 units SC ACHS KASH Stop: 03/30/20 13:59 Last Admin: 02/29/20 14:34 Dose: 16 units Documented by: [id number] Cosigned by: [id number] Discontinued Medications Ceftriaxone Sodium (Rocephin) 2,000 mg in 70 mls @ 140 mls/hr IV NOW STA Stop: 02/29/20 11:49 Last Infusion: 02/29/20 12:11 Dose: 0 mls/hr Documented by: [id number] Admin: 02/29/20 11:32 Dose: 140 mls/hr Documented by: [id number] Insulin Glargine (Insulin Glargine Solostar 100 Units/Ml 3 Ml Pen) 10 units SC ONE ONE Stop: 02/29/20 11:46 Last Admin: 02/29/20 12:35 Dose: 10 units Documented by: [id number] Cosigned by: [id number] Insulin Human Regular (Novolin-R Insulin Per Unit Charge) 5 units IV NOW STA Stop: 02/29/20 11:46 Last Admin: 02/29/20 11:57 Dose: 5 units Documented by: [id number] Cosigned by: [id number] Ketorolac Tromethamine (Ketorolac Tromethamine 15 Mg/Ml Vial) 10 mg IV NOW ONE Stop: 02/29/20 09:56 Last Admin: 02/29/20 10:03 Dose: 10 mg Documented by: [id number] Discharge Plan Visit Data Chief Complaint: Hip Pain Stated Complaint: fall/ L hip pain ED Provider: Siddhartha Rodriguez Discharge Problem: Closed fracture of left hip, Acute UTI Patient Disposition: Admitted As Inpatient Discharge Instructions Interventions: ED Discharge Assessment Last Done: 02/29/20 12:40 Discharge Problem: Closed fracture of left hip Qualifiers: Encounter type: initial encounter Qualified Code(s): S72.002A - Fracture of unspecified part of neck of left femur, initial encounter for closed fracture
[2020-02-29 10:07] LABS: Basophils # (auto) 0.03 K/uL (0-0.2); Basophils % (auto) 0.3 %; Eosinophils # (auto) 0.28 K/uL (0-0.5); Eosinophils % (auto) 2.8 %; Hematocrit (blood only) 44.8 % (37-47); Hemoglobin 14.8 g/dL (12.0-16.0); Immature Granulocytes # (auto) 0.06 K/uL (0.00-0.02); Immature Granulocytes % (auto) 0.6 %; Lymphocytes # (auto) 1.77 K/uL (1.2-3.4); Lymphocytes % (auto) 17.5 %; Mean Corpuscular Volume 93.7 fL (80-100); Mean Platelet Volume 11.7 fL (7.4-10.4); Monocytes # (auto) 0.56 K/uL (0.11-0.59); Monocytes % (auto) 5.5 %; Neutrophils # (auto) 7.43 K/uL (1.4-6.5); Neutrophils % (auto) 73.3 %; Platelet Count 191 K/uL (130-400); RDW Coefficient of Variation 12.4 % (11.5-14.5); RDW Standard Deviation 42.1 fL (36.4-46.3); Red Blood Count 4.78 M/uL (4.2-5.4); White Blood Count 10.13 K/uL (4.8-10.8)
[2020-02-29 10:13] LABS: Appearance Urine Clear (Clear); Bacteria Urine Automated 3+ (Negative); Bilirubin Urine Negative (Negative); Blood Urine Negative (Negative); Color Urine Yellow; Glucose Urine UA 3+ (Negative); Ketones Urine Negative (Negative); Leukocyte Esterase Urine 1+ (Negative); Nitrite Urine Positive (Negative); Protein Urine 1+ (Negative); RBC Urine Automated 0-4 /hpf (0-4); Specific Gravity Urine 1.028 (1.000-1.030); Urobilinogen Urine Negative (Negative); WBC Urine Automated >30 /hpf (0-5)
[2020-02-29 10:21] LABS: Partial Thromboplastin Ratio 0.7; Partial Thromboplastin Time 20.3 Seconds (21.0-31.0); Prothrombin Time 10.7 Seconds (9.0-12.0)
[2020-02-29 10:27] LABS: Calcium 9.2 mg/dl (8.5-10.1); Creatinine Clr Calc Pharmacy 44.6 ml/min; Est GFR (Non-African American) 39.7; Potassium 4.5 mmol/L (3.5-5.1)
[2020-02-29 10:43] LABS: Beta-Hydroxybutyrate 5.9 mg/dl (0.2-2.81)
--- NOTE | 2020-02-29 11:05 | XRay Report ---
XR pelvis 1-2V routine, XR femur LT 2V routine CLINICAL HISTORY: Fall. Left hip pain. COMPARISON STUDY: None. FINDINGS: There is a displaced, angulated, comminuted fracture within the intertrochanteric left femu r. No dislocation. The visualized pelvic bones and right hip appear intact. There is a left total kne e arthroplasty and postoperative changes within the distal left femur consistent with prior internal fixation of an old, healed fracture. The hardware appears intact. IMPRESSION: A left intertrochanteric hip fracture. No dislocation. ACT 112: Negative or not required by law. Electronically signed by: Manjeet Aburto M.D. 02/29/2020 11:03 AM
--- NOTE | 2020-02-29 11:08 | XRay Report ---
XR chest 1V portable HISTORY: Left hip pain. fall COMPARISON: Chest 03/04/2014. FINDINGS: The lungs are clear. Cardiac silhouette is normal in size. No pleural effusions. No pneumot horax. IMPRESSION: No acute process. ACT 112: Negative or not required by law. Electronically signed by: Manjeet Aburto M.D. 02/29/2020 11:06 AM
[2020-02-29] MEDS ORDERED: cefTRIAXone SODIUM 2,000 MG/70 ML BAG IV STA (11:20)
--- NOTE | 2020-02-29 11:29 | History & Physical Report ---
Date of Service February 29, 2020 Assessment & Plan (1) Closed left hip fracture: Patient with left intertrochanteric hip fracture after a fall at home patient does have a history of chronic systolic heart failure based upon ischemia. She reportedly has been stable for some time. SHe has had a dobutamine stress echo in 2017 is been followed by Dr. Fulton and has been in stable condition. Patient reported she is not in any food since last evening. Although she does have some risk given her coronary disease diabetes morbid obesity she likely is as optimized as possible to proceed toward surgery (2) Coronary artery arteriosclerosis: Reportedly by Dr. Fulton's note we believe her ejection fraction is around 40% she does have previous coronary disease with occlusion of her circumflex artery and some akinetic changes on echocardiogram. Maintained on aspirin and atorvastatin do not see beta-blockers afterload reduction with AUGUSTIN inhibitor's or ARB or diuretic outside of spironolactone. We will maintain atorvastatin hold the aspirin will hold diuretic in the perioperative period as she is expected to have some volume loss with surgery. (3) Diabetes mellitus: Patient typically is on glimepiride 4 twice daily and Metformin 1000 twice daily these are held and she will be changed to basal bolus insulin in the perioperative period initial glucose was significantly elevated and A1c is pending although she has been hydroxybutyric acid present she does not have an acidosis based upon anion gap reduction of bicarb do not believe she is in DKA at this time (4) Hypothyroidism: He is on a low-dose of Synthroid 50 mcg this will be continued (5) UTI (urinary tract infection): Patient has abnormal urinalysis on presentation with leukocyte esterase and nitrates. She was given Rocephin in the emergency department and continued on this. Culture was obtained. Hopefully Rocephin can act as preoperative antibiotics unless surgical preference requires more gram-positive coverage (6) DVT prophylaxis: SCDs for DVT prevention History of Present Illness Primary Care Provider: Stu Fulton MD 69-year-old female history of CAD, diabetes, renal issues, hypertension, distal left femur fracture knee replacement presenting today after a fall. Patient states this morning she was going out to walk her dog when she slipped on the ramp outside of her house C states he believes it was a bit wet. Denies any presyncopal symptoms at that time. Patient states that she fell but denies striking her head. Patient states she was in flip-flops she thinks may have contributed to her he did not have anything to eat since last night. Patient was unable to ambulate and ambulance was called. Having significant left hip pain. Patient has any numbness or tingling in the lower extremities. Patient had injury to the upper extremities or difficulty breathing or chest or abdomen pain at this time. Patient has not had anything yet for pain prior to arrival and states she has significant pain of the left hip worse with movement. Patient requesting Toradol for pain Allergies Allergy/AdvReac Type Severity Reaction Status Date / Time amoxicillin Allergy Intermediate RASH Verified 02/29/20 11:07 fexofenadine Allergy Intermediate HIVES,SOB Verified 02/29/20 11:07 nickel Allergy Intermediate RASH, Verified 02/29/20 11:07 ITCHING Home Medications Home Medications Medication Instructions Recorded Confirmed Type blood sugar diagnostic #10 ea 12/30/18 06/10/19 History blood-glucose meter #1 ea 12/30/18 06/10/19 History cholecalciferol (vitamin D3) 25 1,000 units PO BID cap 12/30/18 02/29/20 History mcg (1,000 unit) capsule lancets 33 gauge #100 ea 12/30/18 11/17/19 History naproxen sodium 220 mg tablet 220 mg PO Q12H PRN 12/30/18 02/29/20 History blood sugar diagnostic #10 ea 12/31/18 06/10/19 History blood-glucose meter #1 ea 12/31/18 06/10/19 History cyanocobalamin (vitamin B-12) 1,000 mcg PO QAM tab 12/31/18 02/29/20 History 1,000 mcg tablet lancets #50 ea 12/31/18 11/20/19 History glimepiride 4 mg tablet 4 mg PO BID #180 tab 11/18/19 02/29/20 Rx metformin 1,000 mg tablet 1,000 mg PO BID #180 tab 11/18/19 02/29/20 Rx spironolactone 25 mg tablet 25 mg PO BID #180 tab 11/18/19 02/29/20 Rx aspirin [Adult Low Dose Aspirin] 81 mg PO PM 02/29/20 02/29/20 History atorvastatin 80 mg PO PM 02/29/20 02/29/20 History clobetasol 1 appln TOP DIRECTED 02/29/20 02/29/20 History levothyroxine 50 mcg PO QAM 02/29/20 02/29/20 History metoprolol succinate 25 mg PO QAM 02/29/20 02/29/20 History potassium citrate 20 meq PO QAM 02/29/20 02/29/20 History Past Med/Surg History Medical History (Updated 02/29/20 @ 11:57 by Catracho Ugalde MD) Asymptomatic carotid artery stenosis Colon polyps Coronary artery arteriosclerosis Diabetes mellitus Diabetic nephropathy associated with type 2 diabetes mellitus Hypercholesterolemia Hypertension Hypothyroidism Ischemic cardiomyopathy Lichen sclerosus et atrophicus Microalbuminuria due to type 2 diabetes mellitus Nephrolithiasis Obesity Surgical History History of sleeve gastrectomy Social History Smoking Status: Never smoker Second Hand Exposure: No; Do You Dip or Chew Tobacco: No; Tobacco Cessation Education Requested by Patient: No Hx Alcohol Use: Yes Hx Substance Use: No Preferred Language: Romanian Communication Ability: Effective Printing Machine Operator Required: No Beliefs That Will Affect Care: None Current Living Situation: Spouse and Family Current Living Situation Comment: and son Other Information That Helps Us Care for You: No Feels Safe at Home: Yes Safety Concerns: Feels Safe At This Time Assistive Devices: Cane and Glasses Review of Systems Review of Systems: Mild distress and fatigue no headache, blurry or double vision no speech or swallowing issues no chest pain, pressure or palpitations no shortness of breath, cough or wheezes no abdominal pain, nausea or vomiting, diarrhea or constipation no dysuria, hematuria or frequency no focal joint pain or swelling no back pain, CVA tenderness or radicular pain no bruising, bleeding or rashes no focal signs of weakness or numbness or altered sensation no complaints of anxiety or depression. Physical Exam Physical Exam: The patient appeared well nourished and normally developed. Vital signs as documented. Head exam is normocephalic atraumatic no scleral icterus Neck is without JVD, thyromegaly, or carotid bruits. Lungs are clear to auscultation, no focal loss of breath sounds Cardiac exam, Rhythm is regular.. No murmurs, rubs or gallops. Abdominal exam reveals normal bowel sounds, soft non tender, no masses Extremities are nonedematous and both pedal pulses are present Neurologic exam is alert and oriented, no focal loss of strength or sensation Skin is without bruises or rashes Psychologically is without concerns for anxiety or depression. Results & Data Results & Data ([facility]) Vital Signs (Past 12 Hours) Vital Signs Temp Pulse Resp BP Pulse Ox 02/29/20 10:00 95 02/29/20 09:55 98.2 F 69 20 118/83 95 PG Care Time/CCT Total # of Minutes Spent Total Time Spent with Patient: Total time spent is greater than 50% in coordination of care (as documented) at patient's floor/unit and/or counseling patient: Coding Level of Care Code 93894 Initial Inpt Care Lvl 3 Diagnoses Closed left hip fracture S72.002A Coronary artery arteriosclerosis I25.10 Diabetes mellitus E11.9 Hypothyroidism E03.9 UTI (urinary tract infection) N39.0 DVT prophylaxis Z29.9
[2020-02-29] MEDS ORDERED: NovoLIN-R INSULIN PER UNIT CHARGE IV STA (11:45)
[2020-02-29] MEDS ORDERED: INSULIN GLARGINE SOLOSTAR 100 UNITS/ML 3 ML PEN SC ONE (11:45)
[2020-02-29] MEDS ORDERED: CARBOHYDRATES FOR HYPOGLYCEMIA PO PRN ×2 (13:28)
[2020-02-29] MEDS ORDERED: PHARMACY GLYCEMIC MGMT CONSULT STA (13:28)
[2020-02-29] MEDS ORDERED: MoRPHine SULFATE 4 MG/ML 1 ML CARP\\VIAL IV PRN (13:28)
[2020-02-29] MEDS ORDERED: ONDANSETRON INJ 2 MG/ML 2 ML VIAL IV PRN (13:28)
[2020-02-29] MEDS ORDERED: GLUCOSE 40% GEL 15 GM TUBE PO PRN ×2 (13:28)
[2020-02-29] MEDS ORDERED: GLUCOSE 10 TABS/TUBE PO PRN ×2 (13:28)
[2020-02-29] MEDS ORDERED: DEXTROSE 50% 50 ML SYRINGE IV PRN ×2 (13:28)
[2020-02-29] MEDS ORDERED: MAGNESIUM HYDROXIDE SUSP 30 ML UDC PO PRN (13:28)
[2020-02-29] MEDS ORDERED: bisacodyL 10 MG SUPP PR PRN (13:28)
[2020-02-29] MEDS ORDERED: GLUCAGON FOR INJ 1 MG VIAL SQ PRN ×2 (13:28)
[2020-02-29] MEDS ORDERED: POLYETHYLENE (MIRALAX) 17 GM PACK PO PRN (13:28)
[2020-02-29] MEDS ORDERED: NALOXONE HCL 0.4 MG/1 ML VIAL/CARP IV PRN (13:28)
[2020-02-29] MEDS ORDERED: ALUMINUM/MAGNESIUM SUSP 30 ML UDC PO PRN (13:28)
[2020-02-29] MEDS: ACETAMINOPHEN 500 MG TAB PO PRN ×2 (13:45→23:59)
[2020-02-29] MEDS ORDERED: PHARMACY GLYCEMIC MGMT CONSULT PRN (13:57)
[2020-02-29] MEDS: INSULIN ASPART 100 UNITS/ML 3 ML PEN SC SCH ×3 (14:34→21:00)
--- NOTE | 2020-02-29 14:50 | Pharmacy Report ---
Pharmacy Glycemic Short Note 2 - Date of Service February 29, 2020 - Glycemic Short BSG Results (Last 24 hours): 02/29/20 02/29/20 09:50 12:33 Glucose 376 H* POC Glucose 360 H* OUTPATIENT ANTIDIABETIC REGIMEN: * glimepiride,metformin ASSESSMENT: * Patient with hip fracture. Type 2 diabetic managed only on orals at home. Last A1c elevated ~11% in November 2019 * BSGs on admission in 300s - give 10 of basal insulin, 5 iv insulin - added CF/CR with lunch time check * Continue Lantus BID dosing. Plan to be conservative as patient NPO at midnight PLAN FOR INPATIENT GLYCEMIC CONTROL: * Hold outpatient oral diabetes medications * Basal insulin * Lantus 10 units SQ BID * Bolus insulin * NovoLog per scale ACHS or Q6hrs while NPO * Goal Range: Low 110 mg/dL - High 140 mg/dL * Correction Factor: 20 mg/dL/unit * Nutritional / Prandial insulin per carb ratio of 1 unit per 8 grams CHO consumed
[2020-02-29] MEDS ORDERED: INSULIN ASPART 100 UNITS/ML 3 ML PEN SC SCH (16:30)
[2020-02-29] MEDS ORDERED: INSULIN GLARGINE SOLOSTAR 100 UNITS/ML 3 ML PEN SC SCH ×2 (17:45→21:00)
[2020-02-29] MEDS: ATORVASTATIN 40 MG TAB PO SCH (20:18)
[2020-02-29] MEDS: DOCUSATE SODIUM/SENNA 50/8.6MG TAB PO SCH (20:19)
[2020-02-29] MEDS ORDERED: INSULIN HUMAN REGULAR PER UNIT 5 UNITS in SYRINGE 4.95 ML IV ONE (20:45)
[2020-02-29] MEDS ORDERED: Nursing to Pharmacy Communication SCH (22:45)
[2020-03-01] MEDS: INSULIN ASPART 100 UNITS/ML 3 ML PEN SC SCH ×6 (00:02→21:38)
[2020-03-01] MEDS ORDERED: Nursing to Pharmacy Communication SCH (05:30)
--- NOTE | 2020-03-01 06:18 | Electrocardiogram Report ---
Test Reason : Blood Pressure : / mmHG Vent. Rate : 064 BPM Atrial Rate : 064 BPM P-R Int : 128 ms QRS Dur : 090 ms QT Int : 408 ms P-R-T Axes : 035 013 075 degrees QTc Int : 420 ms Poor data quality, interpretation may be adversely affected Normal sinus rhythm Nonspecific ST and T wave abnormality Abnormal ECG When compared with ECG of 04-MAR-2014 12:19, QT has shortened Confirmed by Finn Harris ([id number]) on 03/01/2020 6:17:43 AM Referred By: REFERRED SELF Confirmed By:Finn Harris
[2020-03-01] MEDS: LEVOTHYROXINE SODIUM 50 MCG TABLET PO SCH (06:32)
[2020-03-01 06:40] LABS: Estimated Average Glucose 318 mg/dl; Hemoglobin A1C 12.7 % (4.5-5.6)
[2020-03-01 06:47] LABS: Hematocrit (blood only) 40.2 % (37-47); Hemoglobin 13.2 g/dL (12.0-16.0); Mean Corpuscular Hemoglobin 30.5 pg (25-34); Mean Corpuscular Hgb Conc 32.8 g/dL (32-36); Mean Corpuscular Volume 92.8 fL (80-100); Platelet Count 178 K/uL (130-400); RDW Coefficient of Variation 12.2 % (11.5-14.5); RDW Standard Deviation 41.9 fL (36.4-46.3); Red Blood Count 4.33 M/uL (4.2-5.4); White Blood Count 8.14 K/uL (4.8-10.8)
[2020-03-01 06:51] LABS: BUN Creatinine Ratio 23.2 (10-20); Calcium 8.8 mg/dl (8.5-10.1); Est GFR (African American) 45.2; Potassium 4.1 mmol/L (3.5-5.1)
[2020-03-01] MEDS: POTASSIUM CITRATE 10 MEQ TAB PO SCH (08:13)
[2020-03-01] MEDS: METOPROLOL SUCC 25MG EXT REL TAB PO SCH (08:13)
[2020-03-01] MEDS: MoRPHine SULFATE 2 MG/ML CARP IV PRN ×2 (08:13→21:45)
--- NOTE | 2020-03-01 08:50 | Hospitalist Progress Note ---
Date of Service March 01, 2020 Assessment & Plan (1) Closed left hip fracture: left intertrochanteric hip fracture after a fall at home OR today at 3pm NPO since dinner on 02-28 Holding aspirin PT and OT (2) UTI (urinary tract infection): Culture with > [id number] gram negative bacilli continue rocephin, narrow coverage as able Hopefully Rocephin can act as preoperative antibiotics unless surgical preference requires more gram-positive coverage (3) Systolic CHF, chronic: EF 40% per Dr. Fulton's note likely ischemic cardiomyopathy appears euvolemic Cont metoprolol holding aldactone Present on Admission?: Yes (4) CKD (chronic kidney disease): baseline Cr 1.3 - 1.5 she is currently euvolemic and at baseline (5) Diabetes mellitus: poorly controlled, A1c 12.7% BG > 300 last night, 178 this morning holding home glimepiride 4 twice daily and Metformin 1000 twice daily cont glargine 10 units BID, SSI diabetes education seeing patient will likely go home on insulin Present on Admission?: Yes (6) Coronary artery arteriosclerosis: coronary disease with occlusion of her circumflex artery and some akinetic changes on echocardiogram hold aspirin, cont atorvastatin Present on Admission?: Yes (7) Hypertension: cont metoprolol Present on Admission?: Yes (8) Hypothyroidism: cont Synthroid 50 mcg Present on Admission?: Yes (9) DVT prophylaxis: SCDs for DVT prevention Admission and Anticipated Discharge Date Admission Date: February 29, 2020 Subjective Patient denies dysuria, endorses pain in left leg and inability to move left leg. Had dinner last night prior to falling. Also had a BM last night. Does not perform 4 mets routinely, but is able to walk up a flight of stairs without stopping. Does not think she could walk a mile. Does not endorse recent angina or dyspnea. Anxious for surgery but no other complaints. Review of Systems Constitutional: no fever, no chills, no fatigue, no weakness, no anorexia, no weight loss and no weight gain Ear, Nose, Mouth, Throat: no nasal congestion, no sore throat and no dysphagia Respiratory: no cough and no dyspnea Cardiovascular: no chest pain, no dyspnea on exertion, no orthopnea and no palpitations Gastrointestinal: no abdominal pain, no nausea, no vomiting, no hematemesis, no dysphagia, no constipation, no diarrhea/loose stools, no blood in stools and no melena Genitourinary: no dysuria, no urinary frequency, no hematuria and no flank pain Musculoskeletal: + joint pain, + limited range of motion (left leg) and + myalgia; no back pain and no muscle weakness Integumentary: no rash, no lesions, no skin ulcer, no erythema, no dry skin and no pruritus Neurologic: no falls, no localized weakness, no generalized weakness, no numbness, no paresthesia, no tremor(s) and no headache(s) Psychiatric: no depression, no suicidal ideation, no homicidal ideation and no anxiety Endocrine: no cold intolerance and no heat intolerance Hematologic / Lymphatic: no easy bleeding and no easy bruising Physical Exam Constitutional: well developed and well nourished; no acute distress Eyes: PERRL, conjunctivae normal, anicteric sclerae ENMT: Mouth: oral mucous membranes not dry Respiratory: normal respiratory effort; no respiratory distress and no labored breathing Auscultation: lungs clear to auscultation bilaterally; no crackles, no rales, no rhonchi and no wheezes Cardiovascular: Rate/Rhythm: regular rate and regular rhythm Heart Sounds: no murmur and no cardiac rub Vessels: normal peripheral pulses and radial pulses present; no JVD Extremities: no edema Gastrointestinal (Abdomen): Inspection/Auscultation: abdomen normal to inspection and normal bowel sounds; abdomen not distended Percussion/Palpation: abdomen soft; abdomen nontender, no guarding, abdomen not rigid and no hepatosplenomegaly Musculoskeletal: Head/Neck/Chest: normocephalic and head atraumatic Spine: no cervical spinal tenderness, no cervical muscular tenderness, no thoracic spinal tenderness and no lumbar spinal tenderness Extremities: + leg internally rotated, + leg foreshortened and + limited ROM of lower extremity Skin: no rashes, warm and dry Neurologic: CN's II-XI intact bilaterally and moves all extremities Motor/Sensory: no tremor and no sensory deficit Psychiatric: Orientation: alert, oriented to person, oriented to place and oriented to time Apperance: appropriately groomed; not disheveled Affect: euthymic affect; no anxious affect and no tearful affect Genitourinary: no CVA tenderness no Orellana catheter Results & Data Results & Data ([facility]) Vital Signs (Past 12 Hours) Vital Signs Temp Pulse Resp BP BP Pulse Ox 03/01/20 07:15 36.7 C 75 16 160/83 H 94 03/01/20 04:02 36.7 C 75 16 132/81 93 02/29/20 23:59 36.8 C 85 20 136/80 95 PG Care Time/CCT Total # of Minutes Spent Total Time Spent with Patient: Total time spent is greater than 50% in coordination of care (as documented) at patient's floor/unit and/or counseling patient: Coding Level of Care Code 81157 Subseq Hosp Care Lvl 3 Diagnoses Closed left hip fracture S72.002A Encounter type: initial encounter UTI (urinary tract infection) N30.00 Hematuria presence: without hematuria Urinary tract infection type: acute cystitis Systolic CHF, chronic I50.22 CKD (chronic kidney disease) N18.32 Chronic kidney disease stage 3 subtype: stage 3b (GFR 30-44) Chronic kidney disease stage: stage 3 (moderate) Diabetes mellitus E11.59 Diabetes mellitus complication detail: with other circulatory complications Diabetes mellitus complication status: with circulatory complication Diabetes mellitus assisted insulin use: without cost and risk analysis manager use Diabetes mellitus type: type 2 Coronary artery arteriosclerosis I25.10 Hypertension I10 Hypertension type: essential hypertension Hypothyroidism E03.9 Hypothyroidism type: acquired DVT prophylaxis Z29.9 (1) UTI (urinary tract infection) Hematuria presence: without hematuria Urinary tract infection type: acute cystitis Qualified Code(s): N30.00 - Acute cystitis without hematuria (2) Diabetes mellitus Diabetes mellitus complication detail: with other circulatory complications Diabetes mellitus complication status: with circulatory complication Diabetes mellitus assisted insulin use: without assisted use Diabetes mellitus type: type 2 Qualified Code(s): E11.59 - Type 2 diabetes mellitus with other circulatory complications (3) Hypothyroidism Hypothyroidism type: acquired Qualified Code(s): E03.9 - Hypothyroidism, unspecified (4) Hypertension Hypertension type: essential hypertension Qualified Code(s): I10 - Essential (primary) hypertension (5) Closed left hip fracture Encounter type: initial encounter Qualified Code(s): S72.002A - Fracture of unspecified part of neck of left femur, initial encounter for closed fracture (6) CKD (chronic kidney disease) Chronic kidney disease stage 3 subtype: stage 3b (GFR 30-44) Chronic kidney disease stage: stage 3 (moderate) Qualified Code(s): N18.32 - Chronic kidney disease, stage 3b
--- NOTE | 2020-03-01 09:11 | Orthopedic Consultation ---
Date of Consultation March 01, 2020 Assessment & Plan (1) Closed fracture of left hip: She is n.p.o. at this time. I educated on this fracture and the treatment for it. Plan will be to take her to the operating room today for short IM nailing of the left hip fracture. Procedure was explained with the patient including the risks, benefits, and alternatives to surgery. She would like to proceed with surgery today. She does live with her and son and was hoping to be discharged home. Present on Admission?: Yes History of Present Illness Reason for Consultation: Left hip fracture Attending Physician: Tiera Quintero MD History of Present Illness Zaynab is a 69-year-old female with a history of left total knee arthroplasty as well as open reduction internal fixation of left distal femur periprosthetic fracture. She slipped and fell yesterday injuring her left hip. She was unable to get up and was brought to [facility] by ambulance. X-rays were taken and showed inter trochanteric hip fracture. She denies having any hip pain prior to this fall. She previously ambulated independently prior to falling. No other orthopedic complaints at this time. No numbness or tingling. Allergies Allergy/AdvReac Type Severity Reaction Status Date / Time amoxicillin Allergy Intermediate RASH Verified 02/29/20 11:07 fexofenadine Allergy Intermediate HIVES,SOB Verified 02/29/20 11:07 nickel Allergy Intermediate RASH, Verified 02/29/20 11:07 ITCHING Home Medications Home Medications Medication Instructions Recorded Confirmed Type blood sugar diagnostic #10 ea 12/30/18 06/10/19 History blood-glucose meter #1 ea 12/30/18 06/10/19 History cholecalciferol (vitamin D3) 25 1,000 units PO BID cap 12/30/18 02/29/20 History mcg (1,000 unit) capsule lancets 33 gauge #100 ea 12/30/18 11/17/19 History naproxen sodium 220 mg tablet 220 mg PO Q12H PRN 12/30/18 02/29/20 History blood sugar diagnostic #10 ea 12/31/18 06/10/19 History blood-glucose meter #1 ea 12/31/18 06/10/19 History cyanocobalamin (vitamin B-12) 1,000 mcg PO QAM tab 12/31/18 02/29/20 History 1,000 mcg tablet lancets #50 ea 12/31/18 11/20/19 History glimepiride 4 mg tablet 4 mg PO BID #180 tab 11/18/19 02/29/20 Rx metformin 1,000 mg tablet 1,000 mg PO BID #180 tab 11/18/19 02/29/20 Rx spironolactone 25 mg tablet 25 mg PO BID #180 tab 11/18/19 02/29/20 Rx aspirin [Adult Low Dose Aspirin] 81 mg PO PM 02/29/20 02/29/20 History atorvastatin 80 mg PO PM 02/29/20 02/29/20 History clobetasol 1 appln TOP DIRECTED 02/29/20 02/29/20 History levothyroxine 50 mcg PO QAM 02/29/20 02/29/20 History metoprolol succinate 25 mg PO QAM 02/29/20 02/29/20 History potassium citrate 20 meq PO QAM 02/29/20 02/29/20 History Patient History Medical History Asymptomatic carotid artery stenosis Colon polyps Coronary artery arteriosclerosis Diabetes mellitus Diabetic nephropathy associated with type 2 diabetes mellitus Hypercholesterolemia Hypertension Hypothyroidism Ischemic cardiomyopathy Lichen sclerosus et atrophicus Microalbuminuria due to type 2 diabetes mellitus Nephrolithiasis Obesity Surgical History (Updated 03/01/20 @ 09:08 by Naresh Claire PA-C) History of sleeve gastrectomy History of total left knee replacement Social History Smoking Status: Never smoker Second Hand Exposure: No; Do You Dip or Chew Tobacco: No; Tobacco Cessation Education Requested by Patient: No Hx Alcohol Use: Yes Hx Substance Use: No Preferred Language: Guinean Communication Ability: Effective Social Media Community Manager Required: No Beliefs That Will Affect Care: None Current Living Situation: Spouse and Family Current Living Situation Comment: and son Other Information That Helps Us Care for You: No Feels Safe at Home: Yes Safety Concerns: Feels Safe At This Time Assistive Devices: Glasses Review of Systems Review of Systems: All systems reviewed & are unremarkable except as noted in HPI & below Physical Exam Physical Exam: She is alert and oriented. She is in no distress. Appears reasonably comfortable. On exam of the lower extremity she has no pain with range of motion of her right leg. Left lower extremity is shortened and externally rotated. She has scars on her knee from her previous knee replacement as well as a scar laterally from the ORIF. Her skin is intact around the hip. She can dorsiflex plantarflex appropriately. She is neurovascular intact. Results & Data ([facility]) Vital Signs (Past 12 Hours) Vital Signs Temp Pulse Resp BP BP Pulse Ox 03/01/20 07:15 36.7 C 75 16 160/83 H 94 03/01/20 04:02 36.7 C 75 16 132/81 93 02/29/20 23:59 36.8 C 85 20 136/80 95 Diagnostic Findings X-rays show a comminuted intertrochanteric left hip fracture. She has prior hardware from open reduction internal fixation of the distal femur as well as her total knee replacement. PG Care Time/CCT Total # of Minutes Spent Total Time Spent with Patient: Total time spent is greater than 50% in coordination of care (as documented) at patient's floor/unit and/or counseling patient: Coding Level of Care Code 19960 Initial Inpt Care Lvl 3 Diagnoses Closed fracture of left hip S72.002A Encounter type: initial encounter (1) Closed fracture of left hip Encounter type: initial encounter Qualified Code(s): S72.002A - Fracture of unspecified part of neck of left femur, initial encounter for closed fracture
[2020-03-01] MEDS: ACETAMINOPHEN 500 MG TAB PO PRN ×2 (10:58→20:52)
--- NOTE | 2020-03-01 11:51 | Pharmacy Report ---
Pharmacy Glycemic Short Note 2 - Date of Service March 01, 2020 - Glycemic Short BSG Results (Last 24 hours): OUTPATIENT ANTIDIABETIC REGIMEN: * Glimepiride 4 mg PO BIDM + Metformin 1000 mg PO BIDM * A1c = 12.7% 03/01/2020 ASSESSMENT: 03/01: * Zaynab received 67 units of insulin yesterday * 20 units basal, 10 units IV, and 37 units bolus * BSGs trended down overnight: 291-507-404-110-141 mg/dL * Her CF/CR were tightened last evening when BSG was 304 mg/dL. * Patient to OR today for hip fracture. Spoke with RN, surgery planned for later this afternoon. * Fasting BSG this AM was 186 mg/dL. Initially held Lantus dose because patient was NPO for surgery. She remains NPO but will give Lantus at lunchtime given BSG. * Will continue current Novolog parameters. * Patient's insulin needs may increase post-operatively. Will add overnight checks. PLAN FOR INPATIENT GLYCEMIC CONTROL: * Hold outpatient oral diabetes medications * Basal insulin - no change * Lantus 10 units SQ BID * Bolus insulin - tightened CF/CR * NovoLog per scale ACHS or Q6hrs while NPO * Goal Range: Low 110 mg/dL - High 140 mg/dL * Correction Factor: 18 mg/dL/unit * Nutritional / Prandial insulin per carb ratio of 1 unit per 6 grams CHO consumed
[2020-03-01] MEDS: cefTRIAXone SODIUM 2,000 MG in DEXTROSE 5% 50 ML IV SCH (11:58)
[2020-03-01] MEDS: INSULIN GLARGINE SOLOSTAR 100 UNITS/ML 3 ML PEN SC SCH ×2 (12:40→20:54)
--- NOTE | 2020-03-01 13:07 | Anesthesiology Consultation ---
Date of Service March 01, 2020 Assessment & Plan (1) Encounter for pre-operative examination: Chart Review Chart Review: Acceptable Risk for Surgery History Surgery Operation Date: 03/01/20 08:10 Proposed Procedures p Left Intermedullary Nail - Miles Bull MD Height/Weight Height: 5 ft 2 in Weight: 107.2 kg Allergies Allergy/AdvReac Type Severity Reaction Status Date / Time amoxicillin Allergy Intermediate RASH Verified 02/29/20 11:07 fexofenadine Allergy Intermediate HIVES,SOB Verified 02/29/20 11:07 nickel Allergy Intermediate RASH, Verified 02/29/20 11:07 ITCHING Medications Home Medications Medication Instructions Recorded Confirmed Last Taken blood sugar diagnostic #10 ea 12/30/18 06/10/19 Unknown blood-glucose meter #1 ea 12/30/18 06/10/19 Unknown cholecalciferol (vitamin D3) 25 1,000 units PO BID cap 12/30/18 02/29/2002/05 mcg (1,000 unit) capsule lancets 33 gauge #100 ea 12/30/18 11/17/19 Unknown naproxen sodium 220 mg tablet 220 mg PO Q12H PRN 12/30/18 02/29/20 Unknown blood sugar diagnostic #10 ea 12/31/18 06/10/19 Unknown blood-glucose meter #1 ea 12/31/18 06/10/19 Unknown cyanocobalamin (vitamin B-12) 1,000 mcg PO QAM tab 12/31/18 02/29/20 02/28/20 1,000 mcg tablet lancets #50 ea 12/31/18 11/20/19 Unknown glimepiride 4 mg tablet 4 mg PO BID #180 tab 11/18/19 02/29/20 02/28/20 metformin 1,000 mg tablet 1,000 mg PO BID #180 tab 11/18/19 02/29/20 02/28/20 spironolactone 25 mg tablet 25 mg PO BID #180 tab 11/18/19 02/29/20 02/28/20 aspirin [Adult Low Dose Aspirin] 81 mg PO PM 02/29/20 02/29/20 02/28/20 atorvastatin 80 mg PO PM 02/29/20 02/29/20 02/28/20 clobetasol 1 appln TOP DIRECTED 02/29/20 02/29/20 Unknown levothyroxine 50 mcg PO QAM 02/29/20 02/29/20 02/29/20 metoprolol succinate 25 mg PO QAM 02/29/20 02/29/20 02/28/20 potassium citrate 20 meq PO QAM 02/29/20 02/29/20 02/28/20 Active Medications Generic Name Dose Route Start Last Admin Trade Name Freq PRN Reason Stop Dose Admin Acetaminophen 1,000 mg 02/29/20 13:28 03/01/20 10:58 Acetaminophen 500 Mg Tab PO 03/30/20 13:27 1,000 mg Q8H PRN Administration pain/fever Atorvastatin Calcium 80 mg 02/29/20 21:00 02/29/20 20:18 Atorvastatin 40 Mg Tab PO 03/30/20 20:59 80 mg PM KASH Administration Ceftriaxone Sodium 2,000 mg/ 70 mls @ 100 mls/hr 03/01/20 11:00 03/01/20 12:44 Dextrose IV 03/06/20 10:59 Infused Q24H KASH Infusion Protocol Insulin Aspart 0 units 03/01/20 06:00 03/01/20 12:40 Insulin Aspart 100 Units/Ml 3 Ml Pen SC 03/31/20 05:59 5 units Q6 KASH Administration Protocol Insulin Glargine 10 units 03/01/20 12:00 03/01/20 12:40 Insulin Glargine Solostar 100 Units/Ml 3 Ml Pen SC 03/31/20 11:59 10 units BID KASH Administration Protocol Levothyroxine Sodium 50 mcg 03/01/20 06:30 03/01/20 06:32 Levothyroxine Sodium 50 Mcg Tablet PO 03/31/20 06:29 50 mcg DAILYBB KASH Administration Metoprolol Succinate 25 mg 03/01/20 09:00 03/01/20 08:13 Metoprolol Succ 25mg Ext Rel Tab PO 03/31/20 08:59 25 mg QAM KASH Administration Morphine Sulfate 2 mg 02/29/20 13:28 03/01/20 08:13 Morphine Sulfate 2 Mg/Ml Carp IV 03/14/20 13:27 2 mg Q4 PRN Administration Pain Potassium Citrate 20 meq 03/01/20 09:00 03/01/20 08:13 Potassium Citrate 10 Meq Tab PO 03/31/20 08:59 20 meq QAM KASH Administration Senna/Docusate Sodium 2 tab 02/29/20 21:00 02/29/20 20:19 Docusate Sodium/Senna 50/8.6mg Tab PO 03/30/20 20:59 2 tab HS KASH Administration NPO Date Last Intake of Fluids: 02/29/20 Time Last Intake of Fluids: 23:55 Date Last Intake of Solids: 02/29/20 Time Last Intake of Solids: 18:00 Past Medical History Medical History Asymptomatic carotid artery stenosis Colon polyps Coronary artery arteriosclerosis Diabetes mellitus Diabetic nephropathy associated with type 2 diabetes mellitus Hypercholesterolemia Hypertension Hypothyroidism Ischemic cardiomyopathy Lichen sclerosus et atrophicus Microalbuminuria due to type 2 diabetes mellitus Nephrolithiasis Obesity Past Surgical History Surgical History (Updated 03/01/20 @ 09:08 by Naresh Claire PA-C) History of sleeve gastrectomy History of total left knee replacement Social History Smoking Status: Never smoker Do You Dip or Chew Tobacco: No Hx Alcohol Use: Yes alcohol intake frequency: other Alcohol Intake Frequency Comment: rare use Hx Substance Use: No substance use type: does not use Physical Exam Vital Signs Last Vital Signs Temp 36.7 C 03/01/20 07:15 Pulse 75 03/01/20 07:15 Resp 16 03/01/20 07:15 BP 160/83 H 03/01/20 07:15 Pulse Ox 94 03/01/20 07:15 Testing Laboratory Results 03/01/20 05:49 03/01/20 05:49 PT 10.7 Seconds (9.0-12.0) 02/29/20 09:50 INR 1.0 (0.9-1.1) 02/29/20 09:50 APTT 20.3 Seconds (21.0-31.0) L 02/29/20 09:50 Hemoglobin A1c 12.7 % (4.5-5.6) H 03/01/20 05:49 Urine Color Yellow 02/29/20 09:50 Urine Appearance Clear (Clear) 02/29/20 09:50 Urine pH 5.0 (4.5-7.5) 02/29/20 09:50 Ur Specific [place] 1.028 (1.000-1.030) 02/29/20 09:50 Urine Protein 1+ (Negative) H 02/29/20 09:50 Urine Glucose (UA) 3+ (Negative) H 02/29/20 09:50 Urine Ketones Negative (Negative) 02/29/20 09:50 Urine Nitrite Positive (Negative) A 02/29/20 09:50 Ur Leukocyte Esterase 1+ (Negative) H 02/29/20 09:50 Urine WBC (Auto) >30 /hpf (0-5) H 02/29/20 09:50 Urine RBC (Auto) 0-4 /hpf (0-4) 02/29/20 09:50 U Hyaline Cast (Auto) 10-30 /lpf (0-5) H 02/29/20 09:50 U Epithel Cells (Auto) 5-10 /lpf (0-5) H 02/29/20 09:50 Urine Bacteria (Auto) 3+ (Negative) H 02/29/20 09:50 Blood Type O Positive 02/29/20 13:45 Antibody Screen NEGATIVE 02/29/20 13:45 02/29/20 09:50 Urine Culture - Preliminary Urine,Straight Cath Gram negative bacilli Gram negative bacilli#2 03/01/20 03/01/20 03/01/20 12:34 05:50 03:53 POC Glucose 227 H 186 H 141 H 02/28 COVID test negative Electrocardiogram Date: 02/29/20 Findings: + NSR @ (64) and + NSST changes Echocardiogram EF: 40% Valvular Disease: + no significant valvular disease from 2017 per cardiology note
[2020-03-01] MEDS ORDERED: KETOROLAC 30 MG/ML VIAL IV PRN (13:53)
[2020-03-01] MEDS ORDERED: ATROPINE SULFATE 0.1 MG/ML 10ML SYR IV PRN (13:53)
[2020-03-01] MEDS ORDERED: HYDROmorphone INJ 1 MG/ML SYRINGE IV PRN (13:53)
[2020-03-01] MEDS ORDERED: ONDANSETRON INJ 2 MG/ML 2 ML VIAL IV PRN (13:53)
[2020-03-01] MEDS ORDERED: ePHEDrine sulfate 50 MG/ML AMP IV PRN (13:53)
[2020-03-01] MEDS ORDERED: LACTATED RINGER'S 500 ML IV ONE (13:54)
[2020-03-01] MEDS ORDERED: EPINEPHrine INJ 1 MG/ML AMP ONE (13:55)
[2020-03-01] MEDS ORDERED: BUPIVACAINE 0.5 % 5 MG/1 ML PF 10ML VIAL ONE (13:55)
[2020-03-01] MEDS ORDERED: BUPIVACAINE 0.5 % 5 MG/1 ML MPF 30ML VIAL ONE (13:55)
[2020-03-01] MEDS ORDERED: LIDOCAINE HCL 2% 2 ML VIAL/AMP(20MG/ML) INFIL ONE (14:05)
[2020-03-01] MEDS ORDERED: PROPOFOL IV EMULSION 10 MG/ML 20 ML VIAL IV ONE (14:05)
[2020-03-01] MEDS ORDERED: MIDAZOLAM HCL 1 MG/ML 2ML VIAL ONE (14:05)
[2020-03-01] MEDS ORDERED: fentaNYL citrate 100 MCG/2 ML VIAL ONE (14:05)
[2020-03-01] MEDS ORDERED: ceFAZolin 2000MG 2,000 MG/15 ML SYR IV ONE (15:16)
[2020-03-01] MEDS ORDERED: PHENYLEPHRINE 100MCG/ML 5ML SYR ONE (15:48)
--- NOTE | 2020-03-01 16:05 | Fluoroscopy Report ---
FL hip LT 2-3V HISTORY: 69 years-old Female LT IM NAIL acute fracture of the left femur COMPARISON: Left femur radiographs 02/29/2020 TECHNIQUE: 4 spot fluoroscopic images of the left hip were obtained utilizing 109.3 seconds fluorosco py time FINDINGS: Status post placement of an intratrochanteric nail with medullary yue fixating the acute intertrochan teric fracture. There is improved alignment with persistent lateral displacement measuring up to appr oximately 1 cm at the level of the lesser trochanter. The hardware appears intact. Moderate left hip osteoarthritis. Expected postsurgical soft tissue swelling and deep tissue air within the lateral tis sues. Partially imaged mid femoral diaphyseal hardware. IMPRESSION: Fluoroscopic assistance as above. Please see operative report for further details. ACT 112: Negative or not required by law. The above report was generated using voice recognition software. It may contain grammatical, syntax o r spelling errors. Electronically signed by: Ramana Pablo M.D. 03/01/2020 4:03 PM
--- NOTE | 2020-03-01 16:10 | Post Operative Brief Note ---
PG Immediate Post Op with CF Date of Surgery March 01, 2020 Pre & Post Diagnosis Operation Date: 03/01/20 08:10 Pre-Op Diagnosis: Closed fracture of left hip Post-Op Diagnosis: Closed fracture of left hip I identified the patient and participated in the time-out.: Yes Procedure Operation Date: 03/01/20 08:10 Actual Procedures p Left Intermedullary Nail(Left) - Miles Bull MD Surgeon Miles Bull MD Restaurant Line Server Alethea, PAC Estimated Blood Loss 100 Findings Consistent with Post-Op Diagnosis Fluids 1100 cc Specimens Specimen Description: None per surgeon. Drains Orellana Catheter Anesthesia Type Spinal MAC Complications none Disposition Accompanied Patient To Recovery: Yes Disposition: Recovery Room
--- NOTE | 2020-03-01 17:25 | Anesthesiology Progress Note ---
Date of Service March 01, 2020 Anesthesia Post Procedure Vital Signs Vital Signs: Temp Pulse Pulse Resp BP BP Pulse Ox 03/01/20 17:10 36.4 C L 80 17 147/71 H 96 03/01/20 17:00 66 20 144/89 H 95 03/01/20 16:50 70 17 145/79 H 94 03/01/20 16:40 78 20 127/80 95 03/01/20 16:30 76 14 131/72 94 03/01/20 16:20 79 12 131/57 L 92 03/01/20 16:11 36.1 C L 85 14 124/72 94 03/01/20 13:31 36.7 C 93 H 20 150/102 H 93 03/01/20 07:15 36.7 C 75 16 160/83 H 94 03/01/20 04:02 36.7 C 75 16 132/81 93 02/29/20 23:59 36.8 C 85 20 136/80 95 02/29/20 19:00 36.7 C 78 16 108/72 96 Pain Intensity Left Hip: Pain Intensity: 5 Transfer of Care Handoff Completed per policy Notes Mental Status: alert / awake / arousable Patient Amnestic to Procedure: Yes Nausea / Vomiting: adequately controlled Pain: adequately controlled Airway Patency, RR, SpO2: stable & adequate BP & HR: stable & adequate Hydration State: stable & adequate Neuraxial Anesthesia: was administered and sensory block is resolving Anesthetic Complications: no major complications apparent
[2020-03-01] MEDS ORDERED: NALOXONE HCL 0.4 MG/1 ML VIAL/CARP IV PRN (17:30)
--- NOTE | 2020-03-01 18:05 | Operative Report ---
Post Operative Report Pre & Post Diagnosis Operation Date: 03/01/20 08:10 Pre-Op Diagnosis: Closed intertrochanteric fracture of left hip Post-Op Diagnosis: Closed intertrochanteric fracture of left hip I identified the patient and participated in the time-out.: Yes Procedure Operation Date: 03/01/20 08:10 Actual Procedures p Left short trochanteric intermedullary Nail(Left) - Miles Bull MD Surgeon Miles Bull MD Personal Support Worker Alethea, PAC Estimated Blood Loss 100 Findings Consistent with Post-Op Diagnosis Operative findings revealed a slightly comminuted displaced intertrochanteric hip fracture. She had previous knee and femur hardware below. Fluids 1100 cc. Specimens None. Drains None. Anesthesia Type Spinal MAC Complications none Disposition Accompanied Patient To Recovery: Yes Disposition: Recovery Room Indications Patient is a 69-year-old female wound to nv from previous left knee replacement past as well as ORIF of a distal femur fracture. She was in her usual state of health when she sustained a fall yesterday. She is brought to emergency room where x-rays revealed a left intertrochanteric fracture. Patient is admitted to the medicine service, medically optimized, and indicated for surgical fixation. Due to the hardware distally, we had to use a short trochanteric nail. Description of Procedure Operative implants consist of: 1. Synthes 11 mm 570 mm short trochanteric nail. 2. 11 mm x 100 mm helical blade. 3. 5.0 x 38 mm distal interlocking screw. Patient was taken to the operating identified and placed on the operating table supine position. A spinal anesthetic and been implemented holding area. Patient did receive 2 g of IV Ancef. That she was then placed on the fracture table. The left leg was placed in boot traction the right leg is placed in a well leg smith. Applied some longitudinal traction to the left leg and internally rotated the foot. X-rays brought in. We will get of able to get nearly an anatomic reduction. The left hip was then scrubbed with Hibiclens and then prepped with ChloraPrep in the usual sterile fashion. A shower curtain drape was used for draping. A direct lateral approach to the proximal femur was then performed through a curvilinear incision beginning just proximal to the tip of the trochanter extending proximally. She had a very very thick soft tissue envelope. Sharp dissection was carried out down to the IT band gluteal fascia. Then made a small incision in this fascia. A guidewire was placed on the lateral tip of the trochanter and in line with the IM canal. It was advanced down the IM canal under fluoroscopic guidance. Once position was verified I overreamed this with a 17 mm reamer. The guidewire was removed. I then placed a guidewire down the femoral canal. I measured how much length I could put down as far as the nail. I was hoping to place the intermediate length nail but there was not enough room. There we select for we selected the short trochanteric nail. I then selected the 11 mm x [address] it over the guidewire. We tapped this into position. The guidewire was removed. The lateral aiming arm was placed. A stab incision was made on the lateral aspect the femur. The lateral aiming arm was advanced the lateral cortex of the femur and centered in the central aspect of the femoral head in both the AP and lateral planes. This position was verified. It was measured. 100 mm helical blade was selected. The cortical strep drill was used to breach the cortex and the triple reamer was then used to ream over the guidewire. 100 mm helical blade was placed. I then tightened the set screw. I did then compress the fracture. Given some final x- rays were obtained proximally. Attention drawn distally. A stab incision was made distally. The interlocking hole in the guide was utilized in the drill sleeve was advanced to the lateral cortex. I then drilled a hole for the distal interlocking screw measured, measured, and placed a 38 mm screw. I did 1 make sure this was adequately long. Some final x-rays were obtained. The lateral aiming arm was removed. All hardware is appropriately positioned. Attention drawn toward closing. All wounds were irrigated with copious normal saline. I did inject locally with 30 cc of half percent Marcaine with epinephrine. The gluteal fascia then closed with a #2 Vicryl suture in running fashion for the subcutaneous tissues beto roximately were closed with #2 Vicryl suture in a buried interrupted fashion. The subcutaneous tissues of both wounds were then closed with 2-0 Dexon suture in a buried interrupted fashion. The skin was closed with skin byron. Leg was then cleaned dried a sterile dressing both Xeroform, 4 fours, ABD pad and foam tape was applied. The patient taken off the fracture table and transported to the transport cart and then transported to the recovery room in stable condition. Patient tolerated procedure well and there were no complications. Shon Claire, my physician patient services assistant, was present for the entire procedure. His assistance was required for appropriate patient positioning, prepping and draping, surgical exposure, performing the technical aspects of the operation, placing the hardware, closing the wound, and placement of the sterile bandage. I attest to the content of the Intraoperative Record and any orders documented therein. Any exceptions are noted below.
[2020-03-01] MEDS: DOCUSATE SODIUM/SENNA 50/8.6MG TAB PO SCH (20:11)
[2020-03-01] MEDS: ASPIRIN 81 MG ECTAB PO SCH (20:11)
[2020-03-01] MEDS: ATORVASTATIN 40 MG TAB PO SCH (20:12)
[2020-03-02] MEDS: INSULIN ASPART 100 UNITS/ML 3 ML PEN SC SCH ×6 (00:48→21:50)
[2020-03-02] MEDS: MoRPHine SULFATE 2 MG/ML CARP IV PRN ×3 (05:05→21:57)
[2020-03-02] MEDS: LEVOTHYROXINE SODIUM 50 MCG TABLET PO SCH (05:06)
[2020-03-02 05:44] LABS: Basophils # (auto) 0.02 K/uL (0-0.2); Basophils % (auto) 0.2 %; Eosinophils # (auto) 0.16 K/uL (0-0.5); Eosinophils % (auto) 1.6 %; Hematocrit (blood only) 38.3 % (37-47); Hemoglobin 12.8 g/dL (12.0-16.0); Immature Granulocytes # (auto) 0.05 K/uL (0.00-0.02); Immature Granulocytes % (auto) 0.5 %; Lymphocytes # (auto) 1.37 K/uL (1.2-3.4); Lymphocytes % (auto) 13.7 %; Mean Corpuscular Hgb Conc 33.4 g/dL (32-36); Mean Corpuscular Volume 92.7 fL (80-100); Mean Platelet Volume 11.8 fL (7.4-10.4); Monocytes # (auto) 1.38 K/uL (0.11-0.59); Monocytes % (auto) 13.8 %; Neutrophils # (auto) 7.03 K/uL (1.4-6.5); Neutrophils % (auto) 70.2 %; Platelet Count 199 K/uL (130-400); RDW Coefficient of Variation 12.3 % (11.5-14.5); RDW Standard Deviation 42.1 fL (36.4-46.3); Red Blood Count 4.13 M/uL (4.2-5.4); White Blood Count 10.01 K/uL (4.8-10.8)
[2020-03-02 06:08] LABS: BUN Creatinine Ratio 21.9 (10-20); Creatinine Clr Calc Pharmacy 49.4 ml/min; Est GFR (Non-African American) 44.8; Potassium 4.2 mmol/L (3.5-5.1)
[2020-03-02] MEDS ORDERED: INSULIN ASPART 100 UNITS/ML 3 ML PEN SC SCH (07:30)
[2020-03-02] MEDS: METOPROLOL SUCC 25MG EXT REL TAB PO SCH (08:38)
[2020-03-02] MEDS: POTASSIUM CITRATE 10 MEQ TAB PO SCH (08:38)
[2020-03-02] MEDS: ASPIRIN 81 MG ECTAB PO SCH ×2 (08:38→20:07)
[2020-03-02] MEDS: INSULIN GLARGINE SOLOSTAR 100 UNITS/ML 3 ML PEN SC SCH (09:18)
--- NOTE | 2020-03-02 09:24 | Hospitalist Progress Note ---
Date of Service March 02, 2020 Assessment & Plan (1) Closed left hip fracture: left intertrochanteric hip fracture after a fall at home OR 03-01 Back on aspirin per surgery orders PT and OT (2) UTI (urinary tract infection): Culture with > [id number] pansusceptible E. coli continue rocephin can switch to keflex once ready to go to SNF (3) Systolic CHF, chronic: EF 40% per Dr. Fulton's note likely ischemic cardiomyopathy appears euvolemic Cont metoprolol holding aldactone (4) CKD (chronic kidney disease): baseline Cr 1.3 - 1.5 she is currently euvolemic and at baseline (5) Diabetes mellitus: poorly controlled, A1c 12.7% BG > 300 last night, 178 this morning holding home glimepiride 4 twice daily and Metformin 1000 twice daily cont glargine 10 units BID, SSI diabetes education seeing patient will likely go home on insulin (6) Coronary artery arteriosclerosis: coronary disease with occlusion of her circumflex artery and some akinetic changes on echocardiogram hold aspirin, cont atorvastatin (7) Hypertension: cont metoprolol (8) Hypothyroidism: cont Synthroid 50 mcg (9) DVT prophylaxis: SCDs for DVT prevention Likely to rehab on 03-04 Admission and Anticipated Discharge Date Admission Date: February 29, 2020 Subjective Patient endorsing mild pain in left knee up to left hip. Pain well controlled on pain regimen. Patient eating, has not had BM yet. Stood with PT but did not walk. Patient understands need for inpatient rehab. Agreeable to going. Discussed need for control of BG in order to let surgical site heal. Patient agreeable to hearing other insulin options. Denies headache, chest pain, sob, edema. Review of Systems Constitutional: no fever, no chills, no fatigue, no weakness, no anorexia, no weight loss and no weight gain Ear, Nose, Mouth, Throat: no nasal congestion, no sore throat and no dysphagia Respiratory: no cough and no dyspnea Cardiovascular: no chest pain, no dyspnea on exertion, no orthopnea and no palpitations Gastrointestinal: no abdominal pain, no nausea, no vomiting, no hematemesis, no dysphagia, no constipation, no diarrhea/loose stools, no blood in stools and no melena Genitourinary: no dysuria, no urinary frequency, no hematuria and no flank pain Musculoskeletal: + joint pain, + limited range of motion (left leg) and + myalgia; no back pain and no muscle weakness Integumentary: no rash, no lesions, no skin ulcer, no erythema, no dry skin and no pruritus Neurologic: no falls, no localized weakness, no generalized weakness, no numbness, no paresthesia, no tremor(s) and no headache(s) Psychiatric: no depression, no suicidal ideation, no homicidal ideation and no anxiety Endocrine: no cold intolerance and no heat intolerance Hematologic / Lymphatic: no easy bleeding and no easy bruising Physical Exam Constitutional: well developed and well nourished; no acute distress Eyes: PERRL, conjunctivae normal, anicteric sclerae ENMT: Mouth: oral mucous membranes not dry Respiratory: normal respiratory effort; no respiratory distress and no labored breathing Auscultation: lungs clear to auscultation bilaterally; no crackles, no rales, no rhonchi and no wheezes Cardiovascular: Rate/Rhythm: regular rate and regular rhythm Heart Sounds: no murmur and no cardiac rub Vessels: normal peripheral pulses and radial pulses present; no JVD Extremities: no edema Gastrointestinal (Abdomen): Inspection/Auscultation: abdomen normal to inspection and normal bowel sounds; abdomen not distended P ercussion/Palpation: abdomen soft; abdomen nontender, no guarding, abdomen not rigid and no hepatosplenomegaly Musculoskeletal: Head/Neck/Chest: normocephalic and head atraumatic Spine: no cervical spinal tenderness, no cervical muscular tenderness, no thoracic spinal tenderness and no lumbar spinal tenderness Extremities: + limited ROM of lower extremity (left leg surgical site clean dry intact, left leg nonedematous) Skin: no rashes, warm and dry Neurologic: CN's II-XI intact bilaterally and moves all extremities Motor/Sensory: no tremor and no sensory deficit Psychiatric: Orientation: alert, oriented to person, oriented to place and oriented to time Apperance: appropriately groomed; not disheveled Affect: euthymic affect; no anxious affect and no tearful affect Genitourinary: no CVA tenderness Results & Data Results & Data ([facility]) Vital Signs (Past 12 Hours) Vital Signs Temp Pulse Resp BP Pulse Ox 03/02/20 07:27 37.4 C 90 18 137/69 93 03/02/20 04:48 37.1 C 79 18 134/80 92 03/01/20 23:20 37.1 C 81 18 139/84 94 03/01/20 21:30 36.8 C 78 20 140/82 95 Laboratory Results urine culture > 100,000 E. Coli pansusceptible PG Care Time/CCT Total # of Minutes Spent Total Time Spent with Patient: Total time spent is greater than 50% in coordination of care (as documented) at patient's floor/unit and/or counseling patient: Coding Level of Care Code 96818 Subseq Hosp Care Lvl 3 Diagnoses Closed left hip fracture S72.002A Encounter type: initial encounter UTI (urinary tract infection) N30.00 Hematuria presence: without hematuria Urinary tract infection type: acute cystitis Systolic CHF, chronic I50.22 CKD (chronic kidney disease) N18.32 Chronic kidney disease stage: stage 3 (moderate) Chronic kidney disease stage 3 subtype: stage 3b (GFR 30-44) Diabetes mellitus E11.59 Diabetes mellitus complication detail: with other circulatory complications Diabetes mellitus complication status: with circulatory complication Diabetes mellitus intermission coordinator insulin use: without intermission coordinator use Diabetes mellitus type: type 2 Coronary artery arteriosclerosis I25.10 Hypertension I10 Hypertension type: essential hypertension Hypothyroidism E03.9 Hypothyroidism type: acquired DVT prophylaxis Z29.9 (1) UTI (urinary tract infection) Hematuria presence: without hematuria Urinary tract infection type: acute cystitis Qualified Code(s): N30.00 - Acute cystitis without hematuria (2) Diabetes mellitus Diabetes mellitus complication detail: with other circulatory complications Diabetes mellitus complication status: with circulatory complication Diabetes mellitus intermission coordinator insulin use: without usp use Diabetes mellitus type: type 2 Qualified Code(s): E11.59 - Type 2 diabetes mellitus with other circulatory complications (3) Hypothyroidism Hypothyroidism type: acquired Qualified Code(s): E03.9 - Hypothyroidism, unspecified (4) CKD (chronic kidney disease) Chronic kidney disease stage: stage 3 (moderate) Chronic kidney disease stage 3 subtype: stage 3b (GFR 30-44) Qualified Code(s): N18.32 - Chronic kidney disease, stage 3b (5) Hypertension Hypertension type: essential hypertension Qualified Code(s): I10 - Essential (primary) hypertension (6) Closed left hip fracture Encounter type: initial encounter Qualified Code(s): S72.002A - Fracture of unspecified part of neck of left femur, initial encounter for closed fracture
[2020-03-02] MEDS: ACETAMINOPHEN 500 MG TAB PO PRN (11:30)
[2020-03-02] MEDS: cefTRIAXone SODIUM 2,000 MG in DEXTROSE 5% 50 ML IV SCH (12:11)
--- NOTE | 2020-03-02 13:15 | Progress Notes ---
DATE: 03/02/2020 SUBJECTIVE: A 69-year-old female with very poorly controlled diabetes, now postop day 1 from IM nailing of a left intertrochanteric fracture. She is doing okay. Having quite a bit of leg pain. She describes pain from her hip to her knee. No other complaints. No chest pain or shortness of breath. Not feeling dizzy or lightheaded. OBJECTIVE: VITAL SIGNS: Temperature 37.4. Vital signs stable. GENERAL: Shows a pleasant, middle-aged female. She is sitting up in bed and eating her lunch. She looks comfortable. EXTREMITIES: Examination of her left leg reveals the leg to be well aligned. Dressing is clean, dry and intact. She can dorsiflex and plantarflex her foot appropriately. She is neurologically intact. No swelling around her knee. No knee effusion. LABORATORY DATA: Unable to review labs for unclear reasons. ASSESSMENT: A 69-year-old female postoperative day 1 from intramedullary nailing of a left intertrochanteric fracture. She is doing pretty well. Having some moderate amount of pain, but looks comfortable when not moving. Leg is well aligned. She is neurologically intact. PLAN: 1. DVT prophylaxis including thigh-high TEDs, SCDs, and baby aspirin twice a day for the next 6 weeks. 2. PT/OT. She is 50% weightbearing in the left leg for the next 2 weeks. 3. IV antibiotics x24 hours. 4. Pain management. We will continue current pain regimen. We will try to stick to p.o. pain medicine as much as possible. 5. Medical management for diabetes. She has got fairly poorly controlled diabetes. 6. Disposition. I think she would benefit from a rehab stay. Social service is working on that.
[2020-03-02] MEDS ORDERED: cefTRIAXone SODIUM 1,000 MG in DEXTROSE 5% 50 ML IV SCH (19:24)
[2020-03-02] MEDS: DOCUSATE SODIUM/SENNA 50/8.6MG TAB PO SCH (20:08)
[2020-03-02] MEDS: ATORVASTATIN 40 MG TAB PO SCH (20:08)
[2020-03-02] MEDS ORDERED: INSULIN GLARGINE SOLOSTAR 100 UNITS/ML 3 ML PEN SC SCH (21:30)
[2020-03-03] MEDS: INSULIN ASPART 100 UNITS/ML 3 ML PEN SC SCH ×4 (01:01→13:10)
[2020-03-03] MEDS: MoRPHine SULFATE 2 MG/ML CARP IV PRN (02:05)
[2020-03-03] MEDS: LEVOTHYROXINE SODIUM 50 MCG TABLET PO SCH (04:23)
[2020-03-03] MEDS: INSULIN GLARGINE SOLOSTAR 100 UNITS/ML 3 ML PEN SC SCH (06:57)
[2020-03-03] MEDS ORDERED: HYDROCODONE/ACETAMOPHEN 5/325MG TAB PO PRN (07:47)
[2020-03-03 07:52] VITALS: TEMP 98.4
[2020-03-03] MEDS: POTASSIUM CITRATE 10 MEQ TAB PO SCH (08:08)
[2020-03-03] MEDS: METOPROLOL SUCC 25MG EXT REL TAB PO SCH (08:08)
--- NOTE | 2020-03-03 08:08 | Progress Notes ---
DATE: 03/03/2020 SUBJECTIVE: A 69-year-old white female postop day 2 from IM nailing of a left intertrochanteric fracture. She is doing a little bit better this morning. Pain seems to be a little bit improved. No other complaints. No chest pain. No shortness of breath. OBJECTIVE: VITAL SIGNS: Temperature 37.2. Vital signs stable. GENERAL: Physical examination shows a pleasant, middle-aged female. She is lying in bed, looks pretty comfortable this morning. EXTREMITIES: Examination of the left leg reveals the leg to be well aligned. Dressing is clean, dry, and intact. She can dorsiflex and plantarflex her foot appropriately. She is neurologically intact. LABORATORY DATA: No new labs. ASSESSMENT: A 69-year-old white female postop day 2 from IM nailing of a left intertrochanteric fracture, doing reasonably well. Pain seems to be a little bit improved. Diabetes is once again fairly poorly controlled. PLAN: 1. DVT prophylaxis including thigh-high TEDs, SCDs, and aspirin twice a day for 6 weeks. 2. PT/OT. She can 50% weightbear on this left leg for the next 2-4 weeks. 3. Routine wound care. 4. Medical management as per the medicine service. 5. Disposition: She is orthopedically okay for discharge any time. I believe she is going to go to [facility] for a brief rehab stay, which I think is appropriate. I need to see her back somewhere between 2 and 3 weeks out from surgery. Any orthopedic questions can be directed to me at [phone].
[2020-03-03] MEDS: ASPIRIN 81 MG ECTAB PO SCH (08:09)
--- NOTE | 2020-03-03 08:43 | Pharmacy Report ---
Pharmacy Glycemic Short Note 2 - Date of Service March 03, 2020 - Glycemic Short BSG Results (Last 24 hours): OUTPATIENT ANTIDIABETIC REGIMEN: * Glimepiride 4 mg PO BIDM + Metformin 1000 mg PO BIDM * A1c = 12.7% 03/01/2020 ASSESSMENT: 03/03: * Patient received 77 units of insulin yesterday * 25 units basal + 52 units bolus * BSGs were uncontrolled at [phone] mg/dL * Fasting BSG this AM was uncontrolled at 214 mg/dL * Will increase basal insulin dose by ~ 50% today, pending BSG trend throughout the day * Lunchtime BSG was 293 mg/dL - worsening * Tighten CF/CR with lunch 03/01: * Zaynab received 67 units of insulin yesterday * 20 units basal, 10 units IV, and 37 units bolus * BSGs trended down overnight: [id number] mg/dL * Her CF/CR were tightened last evening when BSG was 304 mg/dL. * Patient to OR today for hip fracture. Spoke with RN, surgery planned for later this afternoon. * Fasting BSG this AM was 186 mg/dL. Initially held Lantus dose because patient was NPO for surgery. She remains NPO but will give Lantus at lunchtime given BSG. * Will continue current Novolog parameters. * Patient's insulin needs may increase post-operatively. Will add overnight checks. PLAN FOR INPATIENT GLYCEMIC CONTROL: * Hold outpatient oral diabetes medications * Basal insulin - increase * Lantus 20-30 units SQ BID per scale (see eMAR for more details) * Bolus insulin - tightened CF/CR * NovoLog per scale ACHS or Q6hrs while NPO * Goal Range: Low 110 mg/dL - High 140 mg/dL * Correction Factor: 10 mg/dL/unit * Nutritional / Prandial insulin per carb ratio of 1 unit per 3 grams CHO consumed DISCHARGE RECOMMENDATIONS: * HbA1c from this admission was 12.7% - very poorly controlled. Eastern HbA1c goal for this patient would be less than 8.0% given her age and comorbidities. Patient has improved HbA1c from 13% to 7% in 2018 through diet changes alone. * Recommend changes in self-management of diabetes including improved diet and exercise. * Patient will require insulin upon discharge given HbA1c and amount of insulin required inpatient. Ideally, patient would be discharged on once daily Lantus with Novolog SSI; however, it appears that insulin cost will be an issue until the new year. Patient should continue Metformin post-discharge; however, if insulin is started, then patient's glimepiride should be discontinued. * In the future, believe patient would benefit from a GLP-1 agonist and following with endocrinology/MTM clinic. Will leave this decision to outpatient provider. * If patient is discharged to facility for rehab, recommend: * Lantus 20 units SQ BID * Novolog 8 units SQ TIDM w/ SSI (see below): * BSG 70 - 150 = 0 additional units * BSG 151 - 200 = 1 addition unit * BSG 201 - 250 = 3 addition units * BSG 251 - 300 = 5 addition units * BSG 301 - 350 = 7 addition units * BSG 351 - 400 = 9 addition units * BSG > 400 = 11 additional units and call MD * If patient is discharged home, recommend the following secondary to cost: * Novolog 70/30 - Inject 60 units SQ w/ breakfast + 30 units SQ w/ dinner * SMBG at least 2 x per day prior to injections. Ideally, 4 x per day would be helpful data for outpatient provider.
[2020-03-03] MEDS ORDERED: INSULIN GLARGINE SOLOSTAR 100 UNITS/ML 3 ML PEN SC ONE (09:00)
[2020-03-03] MEDS: traMADol HCL 50 MG TABLET PO PRN ×2 (09:14→15:26)
[2020-03-03 09:24] LABS: Hematocrit (blood only) 37.4 % (37-47); Hemoglobin 12.4 g/dL (12.0-16.0); Mean Corpuscular Hgb Conc 33.2 g/dL (32-36); Mean Corpuscular Volume 93.5 fL (80-100); Mean Platelet Volume 11.5 fL (7.4-10.4); Platelet Count 187 K/uL (130-400); RDW Coefficient of Variation 12.6 % (11.5-14.5); RDW Standard Deviation 42.4 fL (36.4-46.3); White Blood Count 10.02 K/uL (4.8-10.8)
[2020-03-03 09:28] LABS: BUN Creatinine Ratio 18.2 (10-20); Calcium 9.1 mg/dl (8.5-10.1); Creatinine Clr Calc Pharmacy 42.7 ml/min; Est GFR (African American) 43.6; Est GFR (Non-African American) 37.6; Potassium 4.3 mmol/L (3.5-5.1)
[2020-03-03] MEDS: cefTRIAXone SODIUM 2,000 MG in DEXTROSE 5% 50 ML IV SCH (10:39)
--- NOTE | 2020-03-03 15:05 | Discharge Summary ---
Date of Service March 03, 2020 Admission HPI Per Admitting Provider 69-year-old female history of CAD, diabetes, renal issues, hypertension, distal left femur fracture knee replacement presenting today after a fall. Patient states this morning she was going out to walk her dog when she slipped on the ramp outside of her house C states he believes it was a bit wet. Denies any presyncopal symptoms at that time. Patient states that she fell but denies striking her head. Patient states she was in flip-flops she thinks may have contributed to her he did not have anything to eat since last night. Patient was unable to ambulate and ambulance was called. Having significant left hip pain. Patient has any numbness or tingling in the lower extremities. Patient had injury to the upper extremities or difficulty breathing or chest or abdomen pain at this time. Patient has not had anything yet for pain prior to arrival and states she has significant pain of the left hip worse with movement. Patient requesting Toradol for pain Principal Diagnosis left hip fracture Discharge Exam Constitutional well developed and well nourished; no acute distress Eyes PERRL, conjunctivae normal, anicteric sclerae ENMT Mouth: oral mucous membranes not dry Respiratory normal respiratory effort; no respiratory distress and no labored breathing Auscultation: lungs clear to auscultation bilaterally; no crackles, no rales, no rhonchi and no wheezes Cardiovascular Rate/Rhythm: regular rate and regular rhythm Heart Sounds: no murmur and no cardiac rub Vessels: normal peripheral pulses and radial pulses present; no JVD Extremities: no edema Gastrointestinal (Abdomen) Inspection/Auscultation: abdomen normal to inspection and normal bowel sounds; abdomen not distended Percussion/Palpation: abdomen soft; abdomen nontender, no guarding, abdomen not rigid and no hepatosplenomegaly Musculoskeletal Head/Neck/Chest: normocephalic and head atraumatic Spine: no cervical spinal tenderness, no cervical muscular tenderness, no thoracic spinal tenderness and no lumbar spinal tenderness Extremities: + limited ROM of lower extremity (left leg surgical site clean dry intact, left leg nonedematous) Skin no rashes, warm and dry Neurologic CN's II-XI intact bilaterally and moves all extremities Motor/Sensory: no tremor and no sensory deficit Psychiatric Orientation: alert, oriented to person, oriented to place and oriented to time Apperance: appropriately groomed; not disheveled Affect: euthymic affect; no anxious affect and no tearful affect Genitourinary no CVA tenderness Discharge Data Allergies Allergy/AdvReac Type Severity Reaction Status Date / Time amoxicillin Allergy Intermediate RASH Verified 02/29/20 11:07 fexofenadine Allergy Intermediate HIVES,SOB Verified 02/29/20 11:07 nickel Allergy Intermediate RASH, Verified 02/29/20 11:07 ITCHING Consultations 02/29/20 11:27 ED Decision to Admit Stat 02/29/20 13:28 Consult Anesthesiology Routine Consult Case Management - Discharge Planning Routine Consult Orthopedic Surgery Routine 03/01/20 17:30 Consult Case Management - Discharge Planning Routine Procedures Performed Operation Date: 03/01/20 08:10 Actual Procedures p Left Intermedullary Nail(Left) - Miles Bull MD Ordered Studies 03/01/20 14:30 FL fluoroscopy <1hr Routine FL hip LT 2-3V Routine Diabetes Follow up Diabetes Follow-up Needed for HgbA1c >9% Hospital Course (1) Closed left hip fracture: left intertrochanteric hip fracture after a fall at home OR 10- Back on aspirin per surgery orders PT and OT (2) UTI (urinary tract infection): Culture with > [id number] pansusceptible E. coli switch to keflex for 7 more days (3) Systolic CHF, chronic: EF 40% per Dr. Fulton's note likely ischemic cardiomyopathy appears euvolemic Cont metoprolol resume aldactone (4) CKD (chronic kidney disease): baseline Cr 1.3 - 1.5 she is currently euvolemic and at baseline (5) Diabetes mellitus: poorly controlled, A1c 12.7% stop home glimepiride patient was seen by diabetes education they recommend SNF follow these guidelines: Lantus 20 units SQ BID Novolog 8 units SQ TIDM w/ SSI (see below): BSG 70 - 150 = 0 additional units BSG 151 - 200 = 1 addition unit BSG 201 - 250 = 3 addition units BSG 251 - 300 = 5 addition units BSG 301 - 350 = 7 addition units BSG 351 - 400 = 9 addition units BSG > 400 = 11 additional units and call MD In addition, whenever patient is ready for home, diabetes education recommended: Novolog 70/30 - Inject 60 units SQ w/ breakfast + 30 units SQ w/ dinner SMBG at least 2 x per day prior to injections. Ideally, 4 x per day would be helpful data for outpatient provider. Patient will need prescriptions for the novolog 70/30 (6) Coronary artery arteriosclerosis: coronary disease with occlusion of her circumflex artery and some akinetic changes on echocardiogram back on aspirin, cont atorvastatin (7) Hypertension: cont metoprolol (8) Hypothyroidism: cont Synthroid 50 mcg (9) DVT prophylaxis: SCDs for DVT prevention Going to rehab today Total Time Total Time Spent Total Time Spent (In Minutes): 60 minutes Total Time Includes: Examination of the Patient, Discharge Planning, Medication Reconciliation and Communication With Other Providers Discharge Plan Discharge Items Patient Disposition: Transfer Inpatient Rehab Fac Reason For Visit: LEFT INTERTROHANTERIC HIP FRACTURE Discharge Diagnosis: IM Nail Left hip for fracture urinary tract infection uncontrolled diabetes type 2 Activity: Per Instructions section Activity Comment: 50% Weightbearing right lower extremity. Weightbearing: Left partial Weightbearing Comment: 50% Weightbearing lef leg Non-emergency contact: Surgeon Call non-emergency contact if: your symptoms worsen Follow-up/Referrals: Stu Fulton MD [Primary Care Provider] - Miles Bull MD [Physician] - (Schedule Orthopedic follow-up 2-3 weeks from surgery date.) Diet: Carb Consistent or DM2 Addtl Attending Provider Instructions: 1. 50% weightbearing on left lower extremity. 2. continue physical therapy and occupational therapy 3. continue tramadol 50mg as needed for pain 4. you can use norco as needed for pain not alleviated by tramadol 5. stop NSAIDS like naproxen which are not healthy for kidneys 6. continue keflex 500mg four times per day through 03-08 for urinary tract infection 7. while at rehab: Lantus 20 units SQ BID Novolog 8 units SQ TIDM w/ SSI (see below): BSG 70 - 150 = 0 additional units BSG 151 - 200 = 1 addition unit BSG 201 - 250 = 3 addition units BSG 251 - 300 = 5 addition units BSG 301 - 350 = 7 addition units BSG 351 - 400 = 9 addition units > 400 = 11 additional units and call 8. after discharge from rehab, stop glimepiride. 9. after discharge from rehab, continue metformin and start novolog 70/30, 60 units subcutaneous with breakfast and 30 units subcutaneous with dinner. patient will need prescriptions sent to [facility] for novolog 70/30 10. after discharge from rehab, check and record blood sugar twice daily before breakfast and before dinner Pending Studies at Discharge: No Stand-Alone Forms: My [facility] Skilled Items Patient informed of condition?: Yes DNR: No Discharge Level of Care: Acute rehab Communicable Disease: No Discharge Prognosis: Stable Lines: None Urinary Catheter: No Medications and DC Order Prescriptions: New polyethylene glycol 3350 [Miralax] 17 gram Powder In Packet 17 g PO DAILY PRNQty: 0 RF: 0 hydrocodone-acetaminophen [[place]] 5-325 mg Tablet 1 tab PO Q6H PRNQty: 0 RF: 0 sennosides-docusate sodium [Senokot-S] 8.6-50 mg Tablet 2 tab PO HS Qty: 0 RF: 0 tramadol 50 mg Tablet 50 mg PO Q4H PRNQty: 0 RF: 0 insulin NPH and regular human 100 unit/mL (70-30) insulin pen 5 unit subcut BID Qty: 15 RF: 0 cephalexin 500 mg Capsule 500 mg PO QID 7 Days Qty: 0 RF: 0 Continued (DME) lancets [OneTouch Delica Lancets] 33 gauge misc See Dose Instructions .ROUTE .MEDSUPPLY Qty: 100 RF: 0 (DME) blood sugar diagnostic strip See Dose Instructions .ROUTE .MEDSUPPLY Qty: 10 RF: 0 (DME) blood-glucose meter [OneTouch UltraMini] kit See Dose Instructions .ROUTE .MEDSUPPLY Qty: 1 RF: 0 cholecalciferol (vitamin D3) 1,000 unit capsule 1,000 units PO BID RF: 0 metformin 1,000 mg tablet 1,000 mg PO BID Qty: 180 RF: 3 spironolactone 25 mg tablet 25 mg PO BID Qty: 180 RF: 3 cyanocobalamin (vitamin B-12) 1,000 mcg tablet 1,000 mcg PO QAM RF: 0 (DME) OneTouch Ultra Blue Test Strip strip See Dose Instructions .ROUTE .MEDSUPPLY Qty: 10 RF: 0 (DME) blood-glucose meter [OneTouch Ultra2 Meter] kit See Dose Instructions .ROUTE .MEDSUPPLY Qty: 1 RF: 0 (DME) lancets [OneTouch UltraSoft Lancets] misc See Dose Instructions .ROUTE .MEDSUPPLY Qty: 50 RF: 0 atorvastatin 80 mg tablet 80 mg PO PM RF: 0 aspirin [Adult Low Dose Aspirin] 81 mg tablet,delayed release (DR/EC) 81 mg PO PM RF: 0 potassium citrate 10 mEq (1,080 mg) tablet extended release 20 meq PO QAM RF: 0 levothyroxine 50 mcg tablet 50 mcg PO QAM RF: 0 metoprolol succinate 25 mg tablet extended release 24 hr 25 mg PO QAM RF: 0 clobetasol 0.05 % ointment 1 appln TOP DIRECTED RF: 0 Discontinued naproxen sodium [Aleve] 220 mg tablet 220 mg PO Q12H PRN (Reason: Pain) RF: 0 glimepiride 4 mg tablet 4 mg PO BID Qty: 180 RF: 3 Discharge Orders: Discharge Order (Routine); Ordered 03/03/20 Ordered By: Tiera Quintero Admission Data Admit Date/Time: 02/29/20 11:56 Attending Provider: Tiera Quintero Admit Provider: Catracho Ugalde Primary Care Provider: Stu Fulton Other Providers: Catracho Ugalde ; Thomas Razo ; Miles Bull ; [facility] Coding Level of Care Code D/C Day Management >30 mins Diagnoses Closed left hip fracture S72.002A Encounter type: initial encounter UTI (urinary tract infection) N30.00 Urinary tract infection type: acute cystitis Hematuria presence: without hematuria Systolic CHF, chronic I50.22 CKD (chronic kidney disease) N18.32 Chronic kidney disease stage: stage 3 (moderate) Chronic kidney disease stage 3 subtype: stage 3b (GFR 30-44) Diabetes mellitus E11.59 Diabetes mellitus type: type 2 Diabetes mellitus lobsterman insulin use: without lobsterman use Diabetes mellitus complication status: with circulatory complication Diabetes mellitus complication detail: with other circulatory complications Coronary artery arteriosclerosis I25.10 Hypertension I10 Hypertension type: essential hypertension Hypothyroidism E03.9 Hypothyroidism type: acquired DVT prophylaxis Z29.9
[2020-03-03 20:06] VITALS: BP 96/67; PULSE 86; O2SAT 93
[2020-03-03] MEDS ORDERED: cephALEXin 500 MG CAP PO SCH (21:00)
[2020-03-03] MEDS ORDERED: INSULIN GLARGINE SOLOSTAR 100 UNITS/ML 3 ML PEN SC SCH (21:00)
== END 2020-03-03 16:01 | DRG 481 ==
LOC: ED 09:37 → SUATTDRO 11:56 → 3N 11:56

== ENCOUNTER 2021-01-28 10:28 | Inpatient (IN) ==
--- NOTE | 2021-01-28 11:52 | XRay Report ---
XR chest 1V portable CLINICAL HISTORY: weakness COMPARISON STUDY: Chest radiograph February 29, 2020. FINDINGS: Lung volumes are normal. Lungs are clear. There is no pneumothorax or pleural effusion. Mil d cardiomegaly is noted. Mediastinal contours are normal. There is pulmonary vascular congestion. IMPRESSION: Mild cardiomegaly. Pulmonary vascular congestion. ACT 112: Negative or not required by law. Electronically signed by: Bruce Briseno M.D. 01/28/2021 11:50 AM
--- NOTE | 2021-01-28 12:04 | Emergency Department Note ---
Impression & Plan Acute renal failure (ARF), Diarrhea, Elevated troponin I level, Acute hyperglycemia ED Provider Note NAME: ELIGIO LEDBETTER AGE: 70 SEX: F : 1950 ARRIVES VIA: Walk-In INFORMANT: Patient, ED PROVIDER(S): Ian Bolton MD Chief Complaint: Weakness, fatigue, diarrhea HPI: Patient does present with the above complaints which have been ongoing for approximately 3 days. The patient did recently return from the [facility]. Patient denies any abdominal pain nausea or vomiting. Patient is not had any co ugh or fever. The patient states that maybe one of the people that she was with in [place] might have been sick that they returned this past Sunday. The patient is vaccinated for Covid. Patient denies any recent antibiotic use or stream or well water. Patient just feels very fatigued. ROS: See HPI for pertinent positives and negatives. A total of 10 systems were reviewed and otherwise negative. Past medical history: See below Surgical history: See below Social history: See below Physical Exam: GENERAL: Mildly ill in appearance, wearing a mask. EYE EXAM: Normal conjunctiva. PERRL, no anisocoria and EOM's grossly intact w/o pain. NECK: Supple, no nuchal rigidity, no adenopathy, non-tender. No signs of meningismus. LUNGS: Clear to auscultation. Normal chest wall mechanics. HEART: Tachycardic and regular, no MRG. ABDOMEN: Abdomen soft, non-tender, normo-active bowel sounds, no masses, no rebound or guarding. BACK: No CVA TTP. SKIN: No rashes and no bruising. UPPER EXTREMITIES: Upper extremities are grossly normal. LOWER EXTREMITIES: Grossly normal, no edema. NEURO EXAM: A&O x3, cranial nerves II-XII grossly intact, normal speech, moves all 4 extremities on command w/o issue. Differential diagnoses: Infection, dehydration, metabolic abnormality, hypo/hyperglycemia, electrolyte disturbance, anemia, hypoxia, cardiac sources, intracerebral event, toxicologic, neurologic, as well as other pathologies. Course: Patient was seen and evaluated the bedside. Full history physical exam was performed. EKG interpreted by me Sinus tachycardia, rate of 113, normal intervals, normal axis, T wave inversion inferiorly and laterally. Patient's T wave version in the lateral leads may be new compared to prior but inferiorly appears old from comparison EKG February 29, 2020. Imaging Studies: See Below Cardiac monitoring: An order was placed for continuous cardiac monitoring. The monitor shows a rate of 105 with tachycardic and regular rhythm. MDM: Patient has had some associated headache and lack of appetite. Upon initial presentation the patient was hypotensive and tachycardic. Given that I do believe the patient is volume down I did order blood work and the patient was given IV fluids. Patient did have a white count of 21 with a normal H&H with mild thrombocytopenia. The patient's bicarb and anion gap are slightly altered with mild hyperglycemia. Believe the patient will improved with volume repletion and. The patient does have significant change in kidney dysfunction with acute renal failure over the patient has had good urine output per patient. Patient does have a positive troponin. Given the patient's history the of heart disease with some vascular congestion on x-ray the patient was only given 1 L normal saline initially until evaluation by the hospitalist. The patient was ordered full dose aspirin. I did speak with the on-call hospitalist and the patient was admitted by Dr. Ugalde. Patient's EKG does have new T wave inversions in the lateral leads but the patient denies any chest pains or shortness of breath. Chest x-ray did show some cardiomegaly with vascular congestion. Patient lungs sounded clear at the time of her initial assessment with no obvious lower extremity edema. Initially no CAT scan ordered as the patient did not have any flank pain or abdominal pain. This was after discussion with the inpatient hospitalist team. Urinalysis was eventually obtained which did show likely infection the patient was ordered antibiotics by the inpatient hospitalist team. Past Med/Surg History Medical History ARF (acute renal failure) (01/28/14) ASCVD (arteriosclerotic cardiovascular disease) Asymptomatic carotid artery stenosis Colon polyps Coronary artery arteriosclerosis posterior wall AK, 100% mid LCx with collaterals, 75% proximal LCx, 100% proximal RCA with collaterals Diabetes mellitus type II, uncontrolled Hypertension Hypothyroidism Ischemic cardiomyopathy 40%, negative DSE, Jan 2017 Lichen sclerosus et atrophicus Macular degeneration Morbid obesity with BMI of 40.0-44.9, adult Myocardial Infarction 05/14/2007--had heart cath done, no stents--follows with Dr. Fulton Nephrolithiasis Obesity Sepsis (01/28/14) Surgical History History of appendectomy History of benign breast biopsy History of bilateral tubal ligation History of cardiac cath (~05/14/07) @ [facility] d/t OK--no stents placed--follows with Dr. Fulton History of carpal tunnel release of both wrists History of colonoscopy with polypectomy History of dilatation and curettage x3 History of hip surgery (~03/01/20) Left short trochanteric intermedullary Nail by Dr. 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) @ [facility] History of tonsillectomy and adenoidectomy History of total left knee replacement History of wisdom tooth extraction Family History Father Family history of diabetes mellitus Grandmother (Maternal) Family history of diabetes mellitus Uncle Family history of diabetes mellitus Uncle Family history of diabetes mellitus Uncle Family history of diabetes mellitus Brother Family history of diabetes mellitus Grandfather (Paternal) Family hx of colon cancer Other No family history of adverse response to anesthesia Social History Smoking Status: Former smoker Second Hand Exposure: No; Do You Dip or Chew Tobacco: No; Hx Alcohol Use: Yes Alcohol type: wine Hx Substance Use: No Preferred Language: [place]agu[place] Communication Ability: Effective [employer] Required: No Beliefs That Will Affect Care: None Current Living Situation: Family Current Living Situation Comment: and son Other Information That Helps Us Care for You: No Feels Safe at Home: Yes Safety Concerns: Feels Safe At This Time Assistive Devices: Glasses Allergies Allergies Allergy/AdvReac Type Severity Reaction Status Date / Time amoxicillin Allergy Intermediate RASH Verified 01/28/21 13:26 fexofenadine Allergy Intermediate HIVES,SOB Verified 01/28/21 13:26 nickel Allergy Intermediate RASH, Verified 01/28/21 13:26 ITCHING acrylic acid Allergy Mild itching Verified 01/28/21 13:26 with fake nails Home Meds Home Medications Medication Instructions Recorded Confirmed cholecalciferol (vitamin D3) 25 1,000 units PO BID cap 12/30/18 01/28/21 mcg (1,000 unit) capsule (Vitamin D3) lancets 33 gauge (OneTouch Delica #100 ea 12/30/18 09/22/20 Lancets) cyanocobalamin (vitamin B-12) 1,000 mcg PO QAM tab 12/31/18 01/28/21 1,000 mcg tablet (Vitamin B-12) aspirin 81 mg tablet,delayed 81 mg PO HS 02/29/20 01/28/21 release (Adult Low Dose Aspirin) atorvastatin 80 mg tablet (Lipitor) 80 mg PO HS 02/29/20 01/28/21 clobetasol 0.05 % topical ointment 1 appln TOP UD PRN 02/29/20 01/28/21 (Temovate) levothyroxine 50 mcg tablet 50 mcg PO DAILYBB 02/29/20 01/28/21 (Synthroid) metoprolol succinate 25 mg 25 mg PO QAM 02/29/20 01/28/21 tablet,extended release 24 hr (Toprol XL) metformin 500 mg tablet 500 mg PO BID 06/04/20 01/28/21 vit C 250 mg-vit E 90 mg-zinc 40 1 tab PO BIDM 06/04/20 01/28/21 mg-copper 1 sl-scnnpl-cshymi capsule (PreserVision AREDS-2) insulin NPH-regular 70-30 U-100 See Rx Instructions .ROUTE .COMPLEX 01/28/21 01/28/21 insulin 100 unit/mL subcutaneous pen spironolactone 25 mg tablet 25 mg PO BID 01/28/21 01/28/21 (Aldactone) Previous Rx's Medication Instructions Recorded blood sugar diagnostic (OneTouch #100 ea 06/04/20 Ultra Blue Test Strip) pen needle, diabetic 31 gauge x #200 ea 06/04/20 5/16" (BD Ultra-Fine Short Pen Needle) Results & Data (ED) Vital Signs Vital Signs - 24 hr 01/28/21 11:09 01/28/21 11:28 01/28/21 11:30 Temperature 36.4 C L Temperature Source Oral Pulse Rate 113 H 112 H 110 H Pulse Rate [Apical] Pulse Rate from SpO2 Sensor 111 H 110 H Respiratory Rate 20 24 20 Respiratory Effort / Characteristics Non-Labored Respiratory Depth Normal Respiratory Pattern Regular Blood Pressure 78/50 L Blood Pressure [Left Arm] Blood Pressure Mean 59 Blood Pressure Mean [Left Arm] Pulse Oximetry 94 94 92 Oxygen Delivery Method Room Air Sepsis Recent Fever Within 48 Hours No Sepsis New/Unexplained Change in Mental Status No Sepsis Action Taken by Nursing Physician Notified 01/28/21 11:42 01/28/21 12:00 01/28/21 12:30 Temperature Temperature Source Pulse Rate 106 H 102 H Pulse Rate [Apical] 110 H Pulse Rate from SpO2 Sensor 106 H 103 H Respiratory Rate 24 22 28 H Respiratory Effort / Characteristics Spontaneous Labored Respiratory Depth Normal Respiratory Pattern Regular Blood Pressure 121/56 L 108/60 Blood Pressure [Left Arm] 104/56 L Blood Pressure Mean 77 76 Blood Pressure Mean [Left Arm] 72 Pulse Oximetry 93 94 94 Oxygen Delivery Method Room Air Sepsis Recent Fever Within 48 Hours Sepsis New/Unexplained Change in Mental Status Sepsis Action Taken by Nursing 01/28/21 13:00 Temperature Temperature Source Pulse Rate 100 H Pulse Rate [Apical] Pulse Rate from SpO2 Sensor 96 H Respiratory Rate 22 Respiratory Effort / Characteristics Respiratory Depth Respiratory Pattern Blood Pressure 118/75 Blood Pressure [Left Arm] Blood Pressure Mean 89 Blood Pressure Mean [Left Arm] Pulse Oximetry 90 Oxygen Delivery Method Sepsis Recent Fever Within 48 Hours Sepsis New/Unexplained Change in Mental Status Sepsis Action Taken by Shelter Medications Current Medication List: was personally reviewed by me Laboratory Data Attestation: I reviewed the patient's lab results. Result diagrams: 01/28/21 11:41 01/28/21 11:41 Lab Results 01/28/21 01/28/21 01/28/21 Range/Units 11:41 11:41 11:41 WBC 21.57 H (4.8-10.8) K/uL RBC 4.20 (4.2-5.4) M/uL Hgb 12.8 (12.0-16.0) g/dL Hct 38.4 (37-47) % MCV 91.4 (80-100) fL MCH 30.5 (25-34) pg MCHC 33.3 (32-36) g/dL RDW Std Deviation 44.3 (36.4-46.3) fL RDW Coeff of Krysta 13.3 (11.5-14.5) % Plt Count 89 L (130-400) K/uL MPV 12.4 H (7.4-10.4) fL Immature Gran % (Auto) 6.7 % Neut % (Auto) 81.5 % Lymph % (Auto) 4.0 % Dooly % (Auto) 7.4 % Eos % (Auto) 0.3 % Baso % (Auto) 0.1 % Neut # (Auto) 17.58 H (1.4-6.5) K/uL Lymph # (Auto) 0.86 L (1.2-3.4) K/uL Dooly # (Auto) 1.59 H (0.11-0.59) K/uL Eos # (Auto) 0.07 (0-0.5) K/uL Baso # (Auto) 0.02 (0-0.2) K/uL Immature Gran # (Auto) 1.45 H (0.00-0.02) K/uL Toxic Vacuolation 2+ Platelet Estimate Decreased L (Normal) Sodium 133 L (136-145) mmol/L Potassium 4.9 (3.5-5.1) mmol/L Chloride 102 (98-107) mmol/L Carbon Dioxide 20 L (21-32) mmol/L Anion Gap 12.0 H (3-11) BUN 48 H (7-18) mg/dl Creatinine 3.33 H (0.6-1.2) mg/dl Est Cr Clr Drug Dosing Not Reportable Est GFR ( Amer) 15.3 ml/min Est GFR (Non-Af Amer) 13.2 ml/min BUN/Creatinine Ratio 14.3 (10-20) Glucose 314 H* (70-99) mg/dl Calcium 8.4 L (8.5-10.1) mg/dl Total Bilirubin 0.8 (0.2-1) mg/dl AST 29 (15-37) U/L ALT 21 (12-78) U/L Alkaline Phosphatase 191 H (45-117) U/L Troponin I 1.030 H* (0-0.045) ng/ml NT-Pro-B Natriuret Pep 52725 H (0-900) pg/ml Total Protein 6.7 (6.4-8.2) gm/dl Albumin 2.8 L (3.4-5.0) gm/dl Globulin 3.9 (2.5-4.0) gm/dl Albumin/Globulin Ratio 0.7 L (0.9-2) Beta-Hydroxybutyric Acd 2.11 (0.2-2.81) mg/dl TSH 4.210 (0.300-4.500) uIu/ml COVID-19 Eval Order SARS-CoV-2 (PCR) (Negative) 01/28/21 01/28/21 Range/Units 12:45 12:45 WBC (4.8-10.8) K/uL RBC (4.2-5.4) M/uL Hgb (12.0-16.0) g/dL Hct (37-47) % MCV (80-100) fL MCH (25-34) pg MCHC (32-36) g/dL RDW Std Deviation (36.4-46.3) fL RDW Coeff of Krysta (11.5-14.5) % Plt Count (130-400) K/uL MPV (7.4-10.4) fL Immature Gran % (Auto) % Neut % (Auto) % Lymph % (Auto) % Dooly % (Auto) % Eos % (Auto) % Baso % (Auto) % Neut # (Auto) (1.4-6.5) K/uL Lymph # (Auto) (1.2-3.4) K/uL Dooly # (Auto) (0.11-0.59) K/uL Eos # (Auto) (0-0.5) K/uL Baso # (Auto) (0-0.2) K/uL Immature Gran # (Auto) (0.00-0.02) K/uL Toxic Vacuolation Platelet Estimate (Normal) Sodium (136-145) mmol/L Potassium (3.5-5.1) mmol/L Chloride (98-107) mmol/L Carbon Dioxide (21-32) mmol/L Anion Gap (3-11) BUN (7-18) mg/dl Creatinine (0.6-1.2) mg/dl Est Cr Clr Drug Dosing Est GFR ( Amer) ml/min Est GFR (Non-Af Amer) ml/min BUN/Creatinine Ratio (10-20) Glucose (70-99) mg/dl Calcium (8.5-10.1) mg/dl Total Bilirubin (0.2-1) mg/dl AST (15-37) U/L ALT (12-78) U/L Alkaline Phosphatase (45-117) U/L Troponin I (0-0.045) ng/ml NT-Pro-B Natriuret Pep (0-900) pg/ml Total Protein (6.4-8.2) gm/dl Albumin (3.4-5.0) gm/dl Globulin (2.5-4.0) gm/dl Albumin/Globulin Ratio (0.9-2) Beta-Hydroxybutyric Acd (0.2-2.81) mg/dl TSH (0.300-4.500) uIu/ml COVID-19 Eval Order Covid19 at [facility] SARS-CoV-2 (PCR) NEGATIVE (Negative) Administered Medications Ceftriaxone Sodium 2,000 mg/ (Dextrose) 70 mls @ 100 mls/hr IV Q24H KASH; Protocol Stop: 02/02/21 16:29 Last Admin: 01/28/21 17:00 Dose: 100 mls/hr Documented by: [id number] Lidocaine (Lidocaine 5% 1 Patch) 1 patch TD QAM KASH Stop: 02/27/21 16:29 Last Admin: 01/28/21 17:01 Dose: 1 patch Documented by: [id number] Morphine Sulfate (Morphine Sulfate 2 Mg/Ml Carp) 2 mg IV Q4 PRN PRN Reason: Pain Stop: 02/11/21 13:16 Last Admin: 01/28/21 13:28 Dose: 2 mg Documented by: [id number] Discontinued Medications Furosemide (Furosemide 40 Mg/4 Ml Vial) 40 mg IV NOW STA Stop: 01/28/21 13:22 Last Admin: 01/28/21 13:29 Dose: 40 mg Documented by: [id number] Sodium Chloride (Nss 1000ml) 2,000 mls @ 999 mls/hr IV .Q2H1M ONE Stop: 01/28/21 14:25 Last Infusion: 01/28/21 14:30 Dose: 0 mls/hr Documented by: [id number] Admin: 01/28/21 12:41 Dose: 999 mls/hr Documented by: [id number] Sodium Chloride (Nss) 500 mls @ 500 mls/hr IV .Q1H KASH Stop: 01/28/21 16:59 Last Admin: 01/28/21 17:00 Dose: 500 mls/hr Documented by: [id number] Ondansetron HCl (Ondansetron Inj 2 Mg/Ml 2 Ml Vial) 4 mg IV NOW STA Stop: 01/28/21 12:26 Last Admin: 01/28/21 12:41 Dose: 4 mg Documented by: [id number] Imaging Data Radiologist's Impression: Chest X-Ray 01/28/21 11:34 XR chest 1V portable CLINICAL HISTORY: weakness COMPARISON STUDY: Chest radiograph February 29, 2020. FINDINGS: Lung volumes are normal. Lungs are clear. There is no pneumothorax or pleural effusion. Mild cardiomegaly is noted. Mediastinal contours are normal. There is pulmonary vascular congestion. IMPRESSION: Mild cardiomegaly. Pulmonary vascular congestion. ACT 112: Negative or not required by law. Electronically signed by: Bruce Briseno M.D. 01/28/2021 11:50 AM Discharge Plan Visit Data Chief Complaint: Weakness Stated Complaint: EXTREME FATIGUE/WEAKNESS ''FEELING OFF'' ED Provider: Ian Bolton Discharge Problem: Acute renal failure (ARF), Diarrhea, Elevated troponin I level, Acute hyperglycemia Patient Disposition: Admitted As Inpatient Discharge Instructions Interventions: ED Discharge Assessment Last Done: 01/28/21 15:26 Discharge Problem: Acute renal failure (ARF) Qualifiers: Acute renal failure type: unspecified Qualified Code(s): N17.9 - Acute kidney failure, unspecified Diarrhea Qualifiers: Diarrhea type: unspecified type Qualified Code(s): R19.7 - Diarrhea, unspecified
[2021-01-28 12:11] LABS: Hematocrit (blood only) 38.4 % (37-47); Hemoglobin 12.8 g/dL (12.0-16.0); Mean Corpuscular Hemoglobin 30.5 pg (25-34); Mean Corpuscular Hgb Conc 33.3 g/dL (32-36); Mean Corpuscular Volume 91.4 fL (80-100); Mean Platelet Volume 12.4 fL (7.4-10.4); Platelet Count 89 K/uL (130-400); RDW Coefficient of Variation 13.3 % (11.5-14.5); RDW Standard Deviation 44.3 fL (36.4-46.3); White Blood Count 21.57 K/uL (4.8-10.8)
[2021-01-28 12:12] LABS: Basophils # (auto) 0.02 K/uL (0-0.2); Basophils % (auto) 0.1 %; Eosinophils # (auto) 0.07 K/uL (0-0.5); Eosinophils % (auto) 0.3 %; Immature Granulocytes # (auto) 1.45 K/uL (0.00-0.02); Immature Granulocytes % (auto) 6.7 %; Lymphocytes # (auto) 0.86 K/uL (1.2-3.4); Monocytes # (auto) 1.59 K/uL (0.11-0.59); Monocytes % (auto) 7.4 %; Neutrophils # (auto) 17.58 K/uL (1.4-6.5); Neutrophils % (auto) 81.5 %; Platelet Estimate Decreased (Normal); Toxic Vacuolation 2+
[2021-01-28 12:22] LABS: Alanine Aminotransferase 21 U/L (12-78); Albumin Globulin Ratio 0.7 (0.9-2); Albumin Level 2.8 gm/dl (3.4-5.0); Alkaline Phosphatase 191 U/L (45-117); Aspartate Aminotransferase 29 U/L (15-37); BUN Creatinine Ratio 14.3 (10-20); Bilirubin,Total 0.8 mg/dl (0.2-1); Blood Urea Nitrogen 48 mg/dl (7-18); Calcium 8.4 mg/dl (8.5-10.1); Carbon Dioxide 20 mmol/L (21-32); Chloride 102 mmol/L (98-107); Est GFR (African American) 15.3 ml/min; Est GFR (Non-African American) 13.2 ml/min; Globulin 3.9 gm/dl (2.5-4.0); Glucose 314 mg/dl (70-99); Potassium 4.9 mmol/L (3.5-5.1); Sodium 133 mmol/L (136-145); Total Protein 6.7 gm/dl (6.4-8.2)
[2021-01-28] MEDS ORDERED: SODIUM CHLORIDE 0.9% 1000ML 2,000 ML IV ONE (12:25)
[2021-01-28] MEDS ORDERED: ONDANSETRON INJ 2 MG/ML 2 ML VIAL IV STA (12:25)
[2021-01-28 12:37] LABS: Beta-Hydroxybutyrate 2.11 mg/dl (0.2-2.81)
--- NOTE | 2021-01-28 12:54 | History & Physical Report ---
Date of Service January 28, 2021 Assessment & Plan (1) Acute kidney injury: Plan: Patient presents with acute kidney injury with chronic kidney disease stage IIIb typically followed by [facility]. Chronic kidney disease based on diabetes. Patient has pulmonary edema on chest x-ray and known to have ischemic cardiomyopathy. Initial decision hydration is discontinued patient will be given a dose of diuretics as she is tachypneic relatively hypoxemic has rales on exam JVD is difficult to assess given her body habitus Consultation with nephrology, renal ultrasound to look for obstructive phenomenon and also get a gauge of her renal size for medical renal disease (2) Systolic CHF, chronic: Plan: ischemic cardiomyopathy ejection fraction 40%, negative DSE, Jan [address] Futlon, and her coronary artery disease (posterior wall AK, 100% mid LCx with collaterals, 75% proximal LCx, 100% proximal RCA with collaterals) remain on low-dose aspirin atorvastatin Toprol all succinate 25 patient to be on spironolactone is on hold initially given dose of lasix in the ER despite recent diarrhea, as was tachypneic and relatively hypoxic with abnormal CXR showing pulmonary edema. however after lasix very little output, she is slightly sedate from morphine for hip pain, and bedside ultrasound showed hyper dynamic LV with collapsable IVC, will give ivf due to these findings and softer bp. bnp is markedly up , maybe acute diastolic failure from tachycardia from not taking her metoprolol (3) Elevated troponin: Plan: Patient is elevated troponin face of ischemic cardiomyopathy and acute diarrheal illness with renal failure. The troponin could be because of the renal failure we will trend her troponins. She does not have any unstable anginal symptoms by report. With concerns for presentation of heart failure reduced ejection fraction acute exacerbation we will check an echocardiogram we will hold her spironolactone but use Lasix given 40 mg in the ER hold on further dosing based upon bedside us showing collapsable ivc and hyperdynamic LV, repeat trop is up will trend, (4) Abnormal urinalysis: Plan: Patient with abnormal urinalysis on presentation with positive leukocyte esterase 4+ bacteria with a leukocytosis we will send a culture and cover with ceftriaxone as she does have physiological stress and until we have infection ruled out will cover with antibiotics (5) Diarrhea: Plan: pts diarreha is acute and will check for infectious etiology, this is likely the exacerbation of marychuy on ckd3 (6) Diabetes: Plan: Patient's diabetes is in poor control revert to basal bolus insulin As an outpatient she is on 70/30 insulin and Metformin (7) Hypercholesterolemia: Plan: atorvastatin (8) Hypothyroidism: Plan: Base of levothyroxine TSH checked today is 4.21 which is normal (9) DVT prophylaxis: Plan: heparin sc for dvt prevention History of Present Illness Primary Care Provider: Stu Fulton MD 70-year-old female history of heart failure reduced ejection fraction EF 40% and chronic kidney disease stage III typically followed by [facility] nephrology who presents with increasing shortness of breath and overall general discomfort with increasing hip pain in correlation with concomitant diarrheal illnesses which began 3 days ago after return from [place]. Patient states her diarrhea is brown nothing typical Carlos surprising about it. She said decreased urine output of dark urine. She says she is trying to keep up with her oral intake. She did not have her home medications today which include medications for her heart failure and her insulin. In the room she is in significant discomfort she is tachypneic she is relatively hypoxemic and she has signs of heart failure clinically. Chest x-ray corroborates this with the pulmonary edema. However she does have elevation of creatinine 3.3 from her typical baseline in the low ones Patient has not been febrile she is a Covid test pending she is fully vaccinated, no one else at home is sick or no one else from the trip has been ill with diarrheal illness Allergies Allergy/AdvReac Type Severity Reaction Status Date / Time amoxicillin Allergy Intermediate RASH Verified 01/28/21 13:26 fexofenadine Allergy Intermediate HIVES,SOB Verified 01/28/21 13:26 nickel Allergy Intermediate RASH, Verified 01/28/21 13:26 ITCHING acrylic acid Allergy Mild itching Verified 01/28/21 13:26 with fake nails Home Medications Medication Instructions Recorded Confirmed Type cholecalciferol (vitamin D3) 25 1,000 units PO BID cap 12/30/18 01/28/21 History mcg (1,000 unit) capsule (Vitamin D3) lancets 33 gauge (OneTouch Delren[place] #100 ea 12/30/18 09/22/20 History Lancets) cyanocobalamin (vitamin B-12) 1,000 mcg PO QAM tab 12/31/18 01/28/21 History 1,000 mcg tablet (Vitamin B-12) aspirin 81 mg tablet,delayed 81 mg PO HS 02/29/20 01/28/21 History release (Adult Low Dose Aspirin) atorvastatin 80 mg tablet (Lipitor) 80 mg PO HS 02/29/20 01/28/21 History clobetasol 0.05 % topical ointment 1 appln TOP UD PRN 02/29/20 01/28/21 History (Temovate) levothyroxine 50 mcg tablet 50 mcg PO DAILYBB 02/29/20 01/28/21 History (Synthroid) metoprolol succinate 25 mg 25 mg PO QAM 02/29/20 01/28/21 History tablet,extended release 24 hr (Toprol XL) blood sugar diagnostic (OneTouch #100 ea 06/04/20 06/04/20 Rx Ultra Blue Test Strip) metformin 500 mg tablet 500 mg PO BID 06/04/20 01/28/21 History pen needle, diabetic 31 gauge x #200 ea 06/04/20 06/04/20 Rx 5/16" (BD Ultra-Fine Short Pen Needle) vit C 250 mg-vit E 90 mg-zinc 40 1 tab PO BIDM 06/04/20 01/28/21 History mg-copper 1 [id number] capsule (PreserVision AREDS-2) insulin NPH-regular 70-30 U-100 See Rx Instructions .ROUTE .COMPLEX 01/28/21 01/28/21 History insulin 100 unit/mL subcutaneous pen spironolactone 25 mg tablet 25 mg PO BID 01/28/21 01/28/21 History (Aldactone) Past Med/Surg History Medical History ARF (acute renal failure) (01/28/14) ASCVD (arteriosclerotic cardiovascular disease) Asymptomatic carotid artery stenosis Colon polyps Coronary artery arteriosclerosis posterior wall AK, 100% mid LCx with collaterals, 75% proximal LCx, 100% proximal RCA with collaterals Diabetes mellitus type II, uncontrolled Hypertension Hypothyroidism Ischemic cardiomyopathy 40%, negative DSE, Jan 2017 Lichen sclerosus et atrophicus Macular degeneration Morbid obesity with BMI of 40.0-44.9, adult Myocardial Infarction 05/14/2007--had heart cath done, no stents--follows with Dr. Fulton Nephrolithiasis Obesity Sepsis (01/28/14) Surgical History History of appendectomy History of benign breast biopsy History of bilateral tubal ligation History of cardiac cath (~05/14/07) @ [facility] d/t [place]--no stents placed--follows with Dr. Fulton History of carpal tunnel release of both wrists History of colonoscopy with polypectomy History of dilatation and curettage x3 History of hip surgery (~03/01/20) Left short trochanteric intermedullary Nail by Dr. 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) @ [facility] [place] History of tonsillectomy and adenoidectomy History of total left knee replacement History of wisdom tooth extraction Family History Father Family history of diabetes mellitus Grandmother (Maternal) Family history of diabetes mellitus Uncle Family history of diabetes mellitus Uncle Family history of diabetes mellitus Uncle Family history of diabetes mellitus Brother Family history of diabetes mellitus Grandfather (Paternal) Family hx of colon cancer Other No family history of adverse response to anesthesia Social History Smoking Status: Former smoker Second Hand Exposure: No; Do You Dip or Chew Tobacco: No; Hx Alcohol Use: Yes Alcohol type: wine Hx Substance Use: No Preferred Language: Sami Communication Ability: Effective Forest Fire Prevention Specialist Required: No Beliefs That Will Affect Care: None Current Living Situation: Family Current Living Situation Comment: and son Other Information That Helps Us Care for You: No Feels Safe at Home: Yes Safety Concerns: Feels Safe At This Time Assistive Devices: Glasses Review of Systems Review of Systems: Moderate distress and fatigue no headache, no visual changes no speech or swallowing issues no chest pain, pressure or palpitations Rest of breath at baseline patient typically sleeps in a recliner due to her hip pain no abdominal pain, nausea or vomiting, increasing diarrhea no dysuria, hematuria or frequency Left hip pain which is acute on chronic no back pain, CVA tenderness or radicular pain no bruising, bleeding or rashes no focal signs of weakness or numbness or altered sensation no complaints of anxiety or depression.. Physical Exam Physical Exam: The patient appeared in moderate distress significantly uncomfortable Vital signs as documented. Head exam is normocephalic atraumatic Neck is with JVD, thyromegaly, or carotid bruits. Lungs are bibasilar rales retirement up Cardiac exam, Rhythm is cardiac. No murmurs, rubs or gallops. Abdominal exam reveals normal bowel sounds, soft non tender, no masses Extremities are trace edematous and both pedal pulses are present Neurologic exam is alert and oriented, no focal loss of strength or sensation Skin is without bruises or rashes Psychologically is without concerns for anxiety or depression Results & Data [facility] Vital Signs (Past 12 Hours) Vital Signs Temp Pulse Pulse Resp BP BP Pulse Ox 01/28/21 12:30 102 H 28 H 108/60 94 01/28/21 12:00 106 H 22 121/56 L 94 01/28/21 11:42 110 H 24 104/56 L 93 01/28/21 11:30 110 H 20 92 01/28/21 11:28 112 H 24 94 01/28/21 11:09 97.5 F L 113 H 20 78/50 L 94 Diagnostic Findings Chest x-ray shows pulmonary vascular congestion ECG Additional Comments: Normal sinus rhythm nonspecific T wave changes with are similar to old PG Care Time/CCT Total # of Minutes Spent Total Time Spent with Patient: Total time spent is greater than 50% in coordination of care (as documented) at patient's floor/unit and/or counseling patient: Coding Level of Care Code 87412 Initial Inpt Care Lvl 3 Diagnoses Acute kidney injury N17.9 Diabetes E11.9 Hypercholesterolemia E78.00 Systolic CHF, chronic I50.22 Hypothyroidism E03.9 Hypothyroidism type: acquired Elevated troponin R77.8 Diarrhea R19.7 DVT prophylaxis Z29.9 Abnormal urinalysis R82.90 (1) Hypothyroidism Hypothyroidism type: acquired Qualified Code(s): E03.9 - Hypothyroidism, unspecified
[2021-01-28] MEDS ORDERED: MoRPHine SULFATE 2 MG/ML CARP IV PRN (13:17)
[2021-01-28] MEDS ORDERED: FUROSEMIDE 40 MG/4 ML VIAL IV STA (13:21)
--- NOTE | 2021-01-28 15:06 | History & Physical Report ---
Date of Service January 28, 2021 History of Present Illness Primary Care Provider: Stu Fulton MD Allergies Allergy/AdvReac Type Severity Reaction Status Date / Time amoxicillin Allergy Intermediate RASH Verified 01/28/21 13:26 fexofenadine Allergy Intermediate HIVES,SOB Verified 01/28/21 13:26 nickel Allergy Intermediate RASH, Verified 01/28/21 13:26 ITCHING acrylic acid Allergy Mild itching Verified 01/28/21 13:26 with fake nails Home Medications Medication Instructions Recorded Confirmed Type cholecalciferol (vitamin D3) 25 1,000 units PO BID cap 12/30/18 01/28/21 History mcg (1,000 unit) capsule (Vitamin D3) lancets 33 gauge (LDR HoldingTouch Delica #100 ea 12/30/18 09/22/20 History Lancets) cyanocobalamin (vitamin B-12) 1,000 mcg PO QAM tab 12/31/18 01/28/21 History 1,000 mcg tablet (Vitamin B-12) aspirin 81 mg tablet,delayed 81 mg PO HS 02/29/20 01/28/21 History release (Adult Low Dose Aspirin) atorvastatin 80 mg tablet (Lipitor) 80 mg PO HS 02/29/20 01/28/21 History clobetasol 0.05 % topical ointment 1 appln TOP UD PRN 02/29/20 01/28/21 History (Temovate) levothyroxine 50 mcg tablet 50 mcg PO DAILYBB 02/29/20 01/28/21 History (Synthroid) metoprolol succinate 25 mg 25 mg PO QAM 02/29/20 01/28/21 History tablet,extended release 24 hr (Toprol XL) blood sugar diagnostic (LDR HoldingTouch #100 ea 06/04/20 06/04/20 Rx Ultra Blue Test Strip) metformin 500 mg tablet 500 mg PO BID 06/04/20 01/28/21 History pen needle, diabetic 31 gauge x #200 ea 06/04/20 06/04/20 Rx 5/16" (BD Ultra-Fine Short Pen Needle) vit C 250 mg-vit E 90 mg-zinc 40 1 tab PO BIDM 06/04/20 01/28/21 History mg-copper 1 [id number] capsule (PreserVision AREDS-2) insulin NPH-regular 70-30 U-100 See Rx Instructions .ROUTE .COMPLEX 01/28/21 01/28/21 History insulin 100 unit/mL subcutaneous pen spironolactone 25 mg tablet 25 mg PO BID 01/28/21 01/28/21 History (Aldactone) Past Med/Surg History Medical History ARF (acute renal failure) (01/28/14) ASCVD (arteriosclerotic cardiovascular disease) Asymptomatic carotid artery stenosis Colon polyps Coronary artery arteriosclerosis posterior wall AK, 100% mid LCx with collaterals, 75% proximal LCx, 100% proximal RCA with collaterals Diabetes mellitus type II, uncontrolled Hypertension Hypothyroidism Ischemic cardiomyopathy 40%, negative DSE, Jan 2017 Lichen sclerosus et atrophicus Macular degeneration Morbid obesity with BMI of 40.0-44.9, adult Myocardial Infarction 05/14/2007--had heart cath done, no stents--follows with Dr. Fulton Nephrolithiasis Obesity Sepsis (01/28/14) Surgical History History of appendectomy History of benign breast biopsy History of bilateral tubal ligation History of cardiac cath (~05/14/07) @ [facility] d/t [place]--no stents placed--follows with Dr. Fulton History of carpal tunnel release of both wrists History of colonoscopy with polypectomy History of dilatation and curettage x3 History of hip surgery (~03/01/20) Left short trochanteric intermedullary Nail by Dr. 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) @ [facility] [place] History of tonsillectomy and adenoidectomy History of total left knee replacement History of wisdom tooth extraction Family History Father Family history of diabetes mellitus Grandmother (Maternal) Family history of diabetes mellitus Uncle Family history of diabetes mellitus Uncle Family history of diabetes mellitus Uncle Family history of diabetes mellitus Brother Family history of diabetes mellitus Grandfather (Paternal) Family hx of colon cancer Other No family history of adverse response to anesthesia Social History Smoking Status: Never smoker Second Hand Exposure: Yes (mom smoked); Hx Alcohol Use: No Hx Substance Use: No Preferred Language: Azerbaijani Communication Ability: Effective Construction Quality Control Manager Required: No Beliefs That Will Affect Care: None Current Living Situation: Spouse and Family Current Living Situation Comment: Lives with and son Feels Safe at Home: Yes Assistive Devices: Denture - Upper and Glasses Results & Data Results [facility] ([facility]) Vital Signs (Past 12 Hours) Vital Signs Temp Pulse Pulse Resp BP BP Pulse Ox 01/28/21 14:31 121 H 31 H 89/51 L 94 01/28/21 14:01 105 H 32 H 115/89 95 01/28/21 13:32 103 H 31 H 110/49 L 95 01/28/21 13:00 100 H 22 118/75 90 01/28/21 12:30 102 H 28 H 108/60 94 01/28/21 12:00 106 H 22 121/56 L 94 01/28/21 11:42 110 H 24 104/56 L 93 01/28/21 11:30 110 H 20 92 01/28/21 11:28 112 H 24 94 01/28/21 11:09 97.5 F L 113 H 20 78/50 L 94 Code Status & VTE Plan VTE Prophylaxis Plan VTE Prophylaxis will be ordered: Yes PG Care Time/CCT Total # of Minutes Spent Total Time Spent with Patient: Total time spent is greater than 50% in coordination of care (as documented) at patient's floor/unit and/or counseling patient: Coding
[2021-01-28 15:09] LABS: Appearance Urine Turbid (Clear); Bacteria Urine Automated 4+ (Negative); Bilirubin Urine Negative (Negative); Blood Urine 3+ (Negative); Color Urine Yellow; Epithelial Cell Urine Auto >30 /lpf (0-5); Glucose Urine UA Negative (Negative); Ketones Urine Trace (Negative); Leukocyte Esterase Urine 3+ (Negative); Nitrite Urine Negative (Negative); Protein Urine 2+ (Negative); Specific Gravity Urine 1.012 (1.000-1.030); Urobilinogen Urine Negative (Negative); WBC Urine Automated >30 /hpf (0-5)
--- NOTE | 2021-01-28 15:28 | Electrocardiogram Report ---
Test Reason : Blood Pressure : / mmHG Vent. Rate : 113 BPM Atrial Rate : 113 BPM P-R Int : 124 ms QRS Dur : 094 ms QT Int : 332 ms P-R-T Axes : 022 003 -76 degrees QTc Int : 455 ms Sinus tachycardia Low voltage QRS Nonspecific ST abnormality Lateral leads Abnormal ECG When compared with ECG of 29-FEB-2020 09:40, Vent. rate has increased BY 49 BPM Confirmed by Obey Schmidt ([id number]) on 01/28/2021 3:28:04 PM Referred By: Confirmed By:Obey Schmidt
[2021-01-28] MEDS ORDERED: METOPROLOL TARTRATE 1 MG/ML VIAL IV PRN (16:00)
[2021-01-28] MEDS ORDERED: CARBOHYDRATES FOR HYPOGLYCEMIA PO PRN (16:00)
[2021-01-28] MEDS ORDERED: PHARMACY GLYCEMIC MGMT CONSULT PRN (16:00)
[2021-01-28] MEDS ORDERED: GLUCAGON FOR INJ 1 MG VIAL SQ PRN (16:00)
[2021-01-28] MEDS ORDERED: ALUMINUM/MAGNESIUM SUSP 30 ML UDC PO PRN (16:00)
[2021-01-28] MEDS ORDERED: GLUCOSE 40% GEL 15 GM TUBE PO PRN (16:00)
[2021-01-28] MEDS ORDERED: SODIUM CHLORIDE 0.9% 500 ML IV SCH (16:00)
[2021-01-28] MEDS ORDERED: GLUCOSE 10 TABS/TUBE PO PRN (16:00)
[2021-01-28] MEDS ORDERED: DEXTROSE 50% 50 ML SYRINGE IV PRN (16:00)
[2021-01-28] MEDS ORDERED: ONDANSETRON INJ 2 MG/ML 2 ML VIAL IV PRN (16:00)
[2021-01-28] MEDS ORDERED: cefTRIAXone SODIUM 2,000 MG in DEXTROSE 5% 50 ML IV SCH (17:00)
[2021-01-28] MEDS: LIDOCAINE 5% 1 PATCH TD SCH (17:01)
--- NOTE | 2021-01-28 17:12 | Nephrology Consultation ---
Date of Consultation January 28, 2021 Assessment & Plan (1) Acute kidney injury: * MARTHA due to dehydration * Await renal US results * Electrolyte balance acceptable. No acute indication for HD today * Monitor PRP (2) CKD (chronic kidney disease): * Baseline Cr 1.2 w/ EGFR 46 cc/min (3) Diarrhea: * Leukocytosis. Differential reveals L shift and toxic vacuolation. There is associated thrombocytopenia but no anemia. Doubt MAHA due to normal Hgb. Will monitor * Stool sent for C. Difficile toxin assay, culture (O&P, salmonella, shigella). Will add testing for Giardia * Patient is hypotensive and clinically volume contracted. Will provide 0.45NS w/ 75 mEq NaHCO3 at 125 cc/hr x 2 L, then stop (4) UTI (urinary tract infection): * On empiric Ceftriaxone therapy * Await urine culture results (5) Diabetes mellitus: * Hold Metformin. Manage diabetes w/ insulin therapy until MARTHA resolves History of Present Illness Reason for Consultation: MARTHA/CKD Attending Physician: Catracho Ugalde MD History of Present Illness Mrs. Toscano is a 70 year old white female who is seen at the request of Dr. Ugalde for evaluation of MARTHA. Medical records in the EMR were reviewed today and are summarized as follows: Mrs. Toscano medical history is significant for obesity, AODM, ICM w/ LVEF 40%, carotid stenosis, hyperlipidemia and hypertension. Her baseline Cr is 1.2 w/ EGFR 46 cc/min and she has a h/o kidney stones. Mrs. Toscano recently returned home from vacationing with family in [place]. Over the last 3 days she has suffered from a diarrheal illness. She presented to the [facility] EMD this afternoon for evaluation and was found to be hypotensive (SBP 78/50) and tachypneic (RA SaO2 94%). COVID testing was negative. Patient is fully vaccinated. CXR was negative for infiltrate. Initially there was concern for CHF. One dose of Lasix 40 mg IV x1 was provided. Bedside echocardiogram was then performed revealing hyperdynamic LV with collapsable IVC. Hydration w/ 0.9NS was started and patient admitted to the hospitalist service for ongoing medical management. Allergies Allergy/AdvReac Type Severity Reaction Status Date / Time amoxicillin Allergy Intermediate RASH Verified 01/28/21 13:26 fexofenadine Allergy Intermediate HIVES,SOB Verified 01/28/21 13:26 nickel Allergy Intermediate RASH, Verified 01/28/21 13:26 ITCHING acrylic acid Allergy Mild itching Verified 01/28/21 13:26 with fake nails Home Medications Medication Instructions Recorded Confirmed Type cholecalciferol (vitamin D3) 25 1,000 units PO BID cap 12/30/18 01/28/21 History mcg (1,000 unit) capsule (Vitamin D3) lancets [facility] gauge ([facility] ea 12/30/18 09/22/20 History Lancets) cyanocobalamin (vitamin B-12) 1,000 mcg PO QAM tab 12/31/18 01/28/21 History 1,000 mcg tablet (Vitamin B-12) aspirin 81 mg tablet,delayed 81 mg PO HS 02/29/20 01/28/21 History release (Adult Low Dose Aspirin) atorvastatin 80 mg tablet (Lipitor) 80 mg PO HS 02/29/20 01/28/21 History clobetasol 0.05 % topical ointment 1 appln TOP UD PRN 02/29/20 01/28/21 History (Temovate) levothyroxine 50 mcg tablet 50 mcg PO DAILYBB 02/29/20 01/28/21 History (Synthroid) metoprolol succinate 25 mg 25 mg PO QAM 02/29/20 01/28/21 History tablet,extended release 24 hr (Toprol XL) blood sugar diagnostic ([facility] e[facility] 06/04/20 06/04/20 Rx Ultra Blue Test Strip) metformin 500 mg tablet 500 mg PO BID 06/04/20 01/28/21 History pen needle, diabetic 31 gauge x #200 ea 06/04/20 06/04/20 Rx 5/16" (BD Ultra-Fine Short Pen Needle) vit C 250 mg-vit E 90 mg-zinc 40 1 tab PO BIDM 06/04/20 01/28/21 History mg-copper 1 [id number] capsule (PreserVision AREDS-2) insulin NPH-regular 70-30 U-100 See Rx Instructions .ROUTE .COMPLEX 01/28/21 01/28/21 History insulin 100 unit/mL subcutaneous pen spironolactone 25 mg tablet 25 mg PO BID 01/28/21 01/28/21 History (Aldactone) Patient History Medical History ARF (acute renal failure) (01/28/14) ASCVD (arteriosclerotic cardiovascular disease) Asymptomatic carotid artery stenosis Colon polyps Coronary artery arteriosclerosis posterior wall AK, 100% mid LCx with collaterals, 75% proximal LCx, 100% proximal RCA with collaterals Diabetes mellitus type II, uncontrolled Hypertension Hypothyroidism Ischemic cardiomyopathy 40%, negative DSE, Jan 2017 Lichen sclerosus et atrophicus Macular degeneration Morbid obesity with BMI of 40.0-44.9, adult Myocardial Infarction 05/14/2007--had heart cath done, no stents--follows with Dr. Fulton Nephrolithiasis Obesity Sepsis (01/28/14) Surgical History History of appendectomy History of benign breast biopsy History of bilateral tubal ligation History of cardiac cath (~05/14/07) @ [facility] d/t TX--no stents placed--follows with Dr. Fulton History of carpal tunnel release of both wrists History of colonoscopy with polypectomy History of dilatation and curettage x3 History of hip surgery (~03/01/20) Left short trochanteric intermedullary Nail by Dr. 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) @ [facility] History of tonsillectomy and adenoidectomy History of total left knee replacement History of wisdom tooth extraction Family History Father Family history of diabetes mellitus Grandmother (Maternal) Family history of diabetes mellitus Uncle Family history of diabetes mellitus Uncle Family history of diabetes mellitus Uncle Family history of diabetes mellitus Brother Family history of diabetes mellitus Grandfather (Paternal) Family hx of colon cancer Other No family history of adverse response to anesthesia Social History Smoking Status: Former smoker Second Hand Exposure: No; Do You Dip or Chew Tobacco: No; Hx Alcohol Use: Yes Alcohol type: wine Hx Substance Use: No Preferred Language: Sinhala Communication Ability: Effective White Lead Filterer Required: No Beliefs That Will Affect Care: None Current Living Situation: Family Current Living Situation Comment: and son Other Information That Helps Us Care for You: No Feels Safe at Home: Yes Safety Concerns: Feels Safe At This Time Assistive Devices: Glasses Review of Systems Constitutional: no fever Eyes: no problem reported Ear, Nose, Mouth, Throat: no problem reported Respiratory: no cough Cardiovascular: no chest pain, no palpitations and no edema Gastrointestinal: + diarrhea/loose stools; no abdominal pain, no nausea and no vomiting Genitourinary: no dysuria and no hematuria Musculoskeletal: no back pain Integumentary: no rash Neurologic: no confusion Physical Exam Constitutional: + obese Eyes: PERRL, conjunctivae normal, anicteric sclerae ENMT: Mouth: + dry oral mucous membranes Neck: trachea midline, no thyromegaly Respiratory: + tachypneic Auscultation: lungs clear to auscultation bilaterally Cardiovascular: Rate/Rhythm: + tachycardic Heart Sounds: + murmur Extremities: no pedal edema Gastrointestinal (Abdomen): normal bowel sounds, soft, nontender, no hepatosplenomegaly Musculoskeletal: Extremities: no cyanosis Skin: no rashes, warm and dry Neurologic: awake; not confused Results & Data ([facility]) Vital Signs (Past 12 Hours) Vital Signs Temp Pulse Pulse Resp BP BP Pulse Ox 01/28/21 16:01 37.0 C 137 H 20 97/65 L 96 01/28/21 15:53 37.0 C 137 H 18 97/65 L 96 01/28/21 15:00 124 H 29 H 127/84 94 01/28/21 14:31 121 H 31 H 89/51 L 94 01/28/21 14:01 105 H 32 H 115/89 95 01/28/21 13:32 103 H 31 H 110/49 L 95 01/28/21 13:00 100 H 22 118/75 90 01/28/21 12:30 102 H 28 H 108/60 94 01/28/21 12:00 106 H 22 121/56 L 94 01/28/21 11:42 110 H 24 104/56 L 93 01/28/21 11:30 110 H 20 92 01/28/21 11:28 112 H 24 94 01/28/21 11:09 36.4 C L 113 H 20 78/50 L 94 Laboratory Results Laboratory Tests 01/28/21 01/28/21 01/28/21 11:41 11:41 11:41 WBC 21.57 H Hgb 12.8 Hct 38.4 Plt Count 89 L Sodium 133 L Potassium 4.9 Chloride 102 Carbon Dioxide 20 L BUN 48 H Creatinine 3.33 H Glucose 314 H* Calcium 8.4 L AST 29 ALT 21 Alkaline Phosphatase 191 H Troponin I 1.030 H* NT-Pro-B Natriuret Pep 71472 H Albumin 2.8 L Beta-Hydroxybutyric Acd 2.11 TSH 4.210 Laboratory Tests 01/28/21 14:48 Urine Color Yellow Urine Appearance Turbid A Urine pH 5.0 Ur Specific [place] 1.012 Urine Protein 2+ H Urine Glucose (UA) Negative Urine Ketones Trace H Urine Blood 3+ H Urine Nitrite Negative Ur Leukocyte Esterase 3+ H Urine WBC (Auto) >30 H Urine RBC (Auto) 10-30 H U Hyaline Cast (Auto) 1-5 U Epithel Cells (Auto) >30 H Urine Bacteria (Auto) 4+ H 01/28/21 CXR: Lung volumes are normal. Lungs are clear. There is no pneumothorax or pleural effusion. Mild cardiomegaly is noted. Mediastinal contours are normal. There is pulmonary vascular congestion. PG Care Time/CCT Total # of Minutes Spent Total Time Spent with Patient: Total time spent is greater than 50% in coordination of care (as documented) at patient's floor/unit and/or counseling patient: Coding Level of Care Code 01232 Inpt Consult Level 5 Diagnoses Acute kidney injury N17.9 CKD (chronic kidney disease) N18.32 Chronic kidney disease stage: stage 3 (moderate) Chronic kidney disease stage 3 subtype: stage 3b (GFR 30-44) Diarrhea R19.7 UTI (urinary tract infection) N39.0 Diabetes mellitus E11.59 Diabetes mellitus complication detail: with other circulatory complications Diabetes mellitus complication status: with circulatory complication Diabetes mellitus [facility] insulin use: without buttermaker helper use Diabetes mellitus type: type 2 (1) Diabetes mellitus Diabetes mellitus complication detail: with other circulatory complications Diabetes mellitus complication status: with circulatory complication Diabetes mellitus [facility] insulin use: without [facility] use Diabetes mellitus type: type 2 Qualified Code(s): E11.59 - Type 2 diabetes mellitus with other circulatory complications (2) CKD (chronic kidney disease) Chronic kidney disease stage: stage 3 (moderate) Chronic kidney disease stage 3 subtype: stage 3b (GFR 30-44) Qualified Code(s): N18.32 - Chronic kidney disease, stage 3b
[2021-01-28] MEDS ORDERED: LACTATED RINGER'S 1,000 ML IV SCH (17:45)
[2021-01-28] MEDS ORDERED: INSULIN GLARGINE SOLOSTAR 100 UNITS/ML 3 ML PEN SC ONE (18:00)
[2021-01-28] MEDS: INSULIN ASPART 100 UNITS/ML 3 ML PEN SC SCH ×3 (18:07→23:54)
[2021-01-28] MEDS: ACETAMINOPHEN 325 MG TAB PO PRN (18:28)
[2021-01-28] MEDS: SODIUM BICARBONATE 8.4% 75 MEQ in SODIUM CHLORIDE 0.45 % 1,000 ML IV SCH (19:14)
[2021-01-28] MEDS: HEPARIN SOD 5,000 UNIT/0.5 ML VIAL SQ SCH (20:03)
[2021-01-28] MEDS: CEROVITE ADV FORMULA TAB PO SCH (20:03)
[2021-01-28] MEDS: ASPIRIN 81 MG ECTAB PO SCH (20:03)
[2021-01-28] MEDS: ATORVASTATIN 40 MG TAB PO SCH (20:03)
[2021-01-28] MEDS ORDERED: LACTATED RINGER'S 500 ML IV ONE (20:29)
[2021-01-28] MEDS ORDERED: CEFEPIME 2,000 MG in SYRINGE 0 ML IV ONE (21:00)
[2021-01-28] MEDS ORDERED: SODIUM CHLORIDE 0.9% 1000ML 500 ML IV ONE (21:05)
--- NOTE | 2021-01-28 22:17 | XRay Report ---
SINGLE VIEW PELVIS; 2 VIEWS LEFT HIP CLINICAL HISTORY: Left leg pain. FINDINGS: An AP view of the pelvis with AP and frog-leg views of the left femur are compared to study dated 02/29/2020. The skeletal structures are osteopenic. No acute fracture is identified. There is chronic posttraumatic deformity of the left proximal femur with intertrochanteric and intramedullary nails in place. Chronic posttraumatic deformity and a buttress plate are partially visualized in the distal femoral shaft. The bony pelvis and right proximal femur are maintained. Enthesophytes arise fr om the anterior superior iliac spines. Mild to moderate degenerative joint space narrowing is noted i n both hips. The overlying soft tissues are normal as imaged. Numerous phleboliths are seen in the pe lvis. Lumbosacral spondylosis is partially visualized. IMPRESSION: 1. No acute bony abnormality seen involving the hips or bony pelvis. 2. Chronic posttraumatic and postoperative changes of the left femur as above. Electronically signed by: Milo Hernandez M.D. 01/28/2021 10:16 PM
[2021-01-28 22:51] LABS: Albumin Level 2.1 gm/dl (3.4-5.0); BUN Creatinine Ratio 16.1 (10-20); Calcium 7.6 mg/dl (8.5-10.1); Creatinine Clr Calc Pharmacy 18.7 ml/min; Est GFR (African American) 15.2 ml/min; Est GFR (Non-African American) 13.1 ml/min; Potassium 4.6 mmol/L (3.5-5.1)
[2021-01-28 22:59] LABS: Albumin Globulin Ratio 0.6 (0.9-2); Bilirubin,Total 0.5 mg/dl (0.2-1); Globulin 3.4 gm/dl (2.5-4.0); Total Protein 5.5 gm/dl (6.4-8.2); Troponin I 2.02 ng/ml (0-0.045)
--- NOTE | 2021-01-28 23:19 | Ultrasound Report ---
ULTRASOUND KIDNEYS AND BLADDER CLINICAL HISTORY: Acute renal insufficiency. COMPARISON STUDY: Renal ultrasound dated 02/07/2016 TECHNIQUE: Real-time, grayscale, and color flow sonography of the kidneys and bladder is performed. I mages are reviewed in the transverse and longitudinal planes. FINDINGS: Kidneys: The kidneys are normal in size and echotexture. The right kidney measures 11.5 x 4.9 x 3.7 c m and the left kidney measures 12.2 x 5.5 x 4.3 cm. There is no hydronephrosis. No shadowing renal c alculi are identified. There is no sonographic evidence of contour deforming renal mass lesion. No pe rinephric fluid is identified. Bladder: The bladder is decompressed and could not be assessed. IMPRESSION: 1. The kidneys are normal in size and without hydronephrosis. 2. The bladder was decompressed and could not be assessed. ACT 112: Negative or not required by law. Electronically signed by: Milo Hernandez M.D. 01/28/2021 11:18 PM
[2021-01-29] MEDS ORDERED: SODIUM CHLORIDE 0.9% 500 ML IV SCH (01:00)
[2021-01-29] MEDS: SODIUM BICARBONATE 8.4% 75 MEQ in SODIUM CHLORIDE 0.45 % 1,000 ML IV SCH (03:48)
[2021-01-29] MEDS: INSULIN ASPART 100 UNITS/ML 3 ML PEN SC SCH ×5 (03:52→21:09)
[2021-01-29] MEDS ORDERED: SODIUM CHLORIDE 0.9% 1000ML 1,000 ML IV SCH (05:00)
[2021-01-29] MEDS: INSULIN GLARGINE SOLOSTAR 100 UNITS/ML 3 ML PEN SC SCH ×2 (08:33→17:20)
[2021-01-29] MEDS: HEPARIN SOD 5,000 UNIT/0.5 ML VIAL SQ SCH ×2 (08:34→20:57)
[2021-01-29] MEDS: LEVOTHYROXINE SODIUM 50 MCG TABLET PO SCH (08:35)
[2021-01-29] MEDS: METOPROLOL SUCC 25MG EXT REL TAB PO SCH (08:35)
[2021-01-29] MEDS: CEROVITE ADV FORMULA TAB PO SCH ×2 (08:35→20:56)
[2021-01-29] MEDS: LIDOCAINE 5% 1 PATCH TD SCH (08:35)
[2021-01-29 09:23] LABS: BUN Creatinine Ratio 18.3 (10-20); Creatinine Clr Calc Pharmacy 20.4 ml/min; Est GFR (African American) 16.8 ml/min; Est GFR (Non-African American) 14.5 ml/min
[2021-01-29 09:31] LABS: Potassium 4.8 mmol/L (3.5-5.1)
[2021-01-29 09:40] LABS: Magnesium 1.4 mg/dl (1.8-2.4)
[2021-01-29 10:10] LABS: Estimated Average Glucose 194 mg/dl; Hemoglobin A1C 8.4 % (4.5-5.6)
--- NOTE | 2021-01-29 10:48 | Nephrology Progress Note ---
Date of Service January 29, 2021 Assessment & Plan (1) Acute kidney injury: Plan: 70 y o F with MARTHA due to dehydration and diarrhea. B/L cr 1.2-1.4, Cr on admission 3.3. Renal USG normal. UA with low grade proteinuria, hematuria and bacteruria, on Cefepime. On IV fluid, Cr slightly improved. Seems getting slightly volume overloaded. --DC IV fluid --maintain po intake --renal panel, electrolyte in am Will follow. Admission and Anticipated Discharge Date Admission Date: January 28, 2021 Subjective Zaynab was lucretia and evaluated this am. Feels tired but denies SOB, F/C. Diarrhea improving. Renal function somewhat stable, no further worsening, electrolyte acceptable. Decent UO. Review of Systems Review of Systems: Detail ROS was otherwise negative. Results & Data ([facility]) Vital Signs (Past 12 Hours) Vital Signs Temp Pulse Pulse Resp BP Pulse Ox 01/29/21 08:00 37.0 C 100 H 20 114/73 98 01/29/21 07:42 128 H 01/29/21 05:45 26 H 94 01/29/21 05:23 120 H 26 H 104/66 94 01/29/21 04:56 121 H 97/63 L 01/29/21 02:49 37.1 C 118 H 18 119/71 95 01/29/21 01:20 116 H 118/76 96 01/28/21 23:10 36.9 C 121 H 20 95/63 L 94 01/28/21 23:00 120 H PG Care Time/CCT Total # of Minutes Spent Total Time Spent with Patient: Total time spent is greater than 50% in coordination of care (as documented) at patient's floor/unit and/or counseling patient: Coding Level of Care Code 99543 Subseq Hosp Care Lvl 3 Diagnoses Acute kidney injury N17.9
--- NOTE | 2021-01-29 11:13 | Hospitalist Progress Note ---
Date of Service January 29, 2021 Assessment & Plan (1) UTI (urinary tract infection): Plan: Zaynab Toscano is a 70-year-old female with PMH of CHF, CKD, DM 2, hypertension, hypothyroidism, ischemic cardiomyopathy who presented to [facility] with shortness of breath and general malaise as well as diarrheal illness. Sepsis with gram-negative bacteremia, likely urinary source -Elevated lactate at 4.3, then downtrending to 3.2 -Blood cultures growing gram-negative bacilli, further speciation and sensitivities pending -Urine culture with gram-negative bacilli as well -Has received several 500 mL boluses -No longer hypotensive-- if recurrence, can consider additional boluses with care not to cause fluid overload in CHF patient -Continue broad-spectrum coverage with cefepime pending cultures -Monitor closely -Trend CBC MARTHA on CKD -Creatinine 3.33 on admission, 3.36 on recheck, 3.08 today -Received IV fluid boluses as well as maintenance IV fluids overnight -However, IVF stopped due to concern for fluid overload in the setting of CHF -Nephrology consulted --Seems getting slightly volume overloaded --DC IV fluid --maintain po intake --renal panel, electrolyte in am Elevated troponin level - likely demand ischemia -Troponin levels: 1.030 -> 2.000 - > 2.020 -> 2.060 -> 2.020 -Patient without cardiac symptoms -Sinus tachycardia on EKG and overnight on telemetry, no ST changes -Consult cardiology considering h/o CAD -Continue aspirin, atorvastatin, metoprolol. -Check echo Chronic CHF/Ischemic cardiomyopathy -CXR with mild cardiomegaly and pulmonary vascular congestion -Received a dose of Lasix 40 mg IV on arrival -However, per admission note, POC ultrasound showing collapsed IVC pointing to intravascular depletion -Received fluids as above discontinued this morning due to concern for mild fluid overload -Check echo -Monitor fluid status closely -Strict I/O's -Daily weights -Holding furosemide. Lasix if overt fluid overload -Hold home spironolactone -Continue home Toprol XL -Continue home aspirin Diarrhea -Acute diarrhea in the setting of multiple medical issues as above -C. difficile test and Giardia stool antigen ordered but not collected so far -Unlikely to be related to either of above, especially considering no BM since admission -Continue to monitor Diabetes -Hold home regimen -Sliding scale while admitted Hypothyroidism -Continue home Synthroid Hyperlipidemia -Continue home atorvastatin FEN/GI: Carb consistent, hold IV fluids for now DVT prophylaxis: Heparin 5000 units subcu every 12 hours Dispo: PCU/telemetry, DC plan pending further clinical improvement Code: FULL CODE (2) Hypothyroidism: (3) Hypertension: (4) Diabetes: (5) Acute kidney injury: (6) Elevated troponin I level: (7) Acute renal failure (ARF): (8) Hypercholesterolemia: (9) CKD (chronic kidney disease): Admission and Anticipated Discharge Date Admission Date: January 28, 2021 Supervising Physician Co-Signing Physician Notes Resident Physician Supervision Note: I independently interviewed and examined the patient and verified the young history and physical, reviewed labs and image studies and agree with resident Dr. Estrella findings and care plan. Subjective Overnight patient was managed with several 500mL NSS boluses for management of her low BP in the setting of her sepsis. She responded reasonably well to this. Per patient and RN, she seems much improved this AM vs yesterday. Pt reports that she feels she is breathing very well. Denies CP, palpitations, SOB, fever, chills, n/v. Review of Systems Review of Systems: per subjective Physical Exam Physical Exam: GENERAL: A&Ox3. NAD. HEENT: PERRL, EOMI. Moist mucous membranes. CHEST/LUNGS: CTAB A/P. No crackles, wheezes, rales, rhonchi. HEART: RRR. No m/g/r. No carotid bruits. ABDOMEN: NT/ND, soft. BS+ x4 EXTREMITIES: No cyanosis, no clubbing, no edema SKIN: Warm and dry. No rashes or lesions. PSYCHIATRIC: Euthymic affect, no SI, no pressured speech, no hallucinations NEUROLOGIC: No FND. CN II-XII grossly intact. Results & Data Results & Data ([facility]) Vital Signs (Past 12 Hours) Vital Signs Temp Pulse Pulse Resp BP Pulse Ox 01/29/21 08:00 37.0 C 100 H 20 114/73 98 01/29/21 07:42 128 H 01/29/21 05:45 26 H 94 01/29/21 05:23 120 H 26 H 104/66 94 01/29/21 04:56 121 H 97/63 L 01/29/21 02:49 37.1 C 118 H 18 119/71 95 01/29/21 01:20 116 H 118/76 96 Resident Activity Tracking Resident Involvement: Resident Care Provided Care Provided: Adult Hospital Medicine (1) Acute renal failure (ARF) Acute renal failure type: unspecified Qualified Code(s): N17.9 - Acute kidney failure, unspecified (2) Hypothyroidism Hypothyroidism type: acquired Qualified Code(s): E03.9 - Hypothyroidism, unspecified (3) CKD (chronic kidney disease) Chronic kidney disease stage: stage 3 (moderate) Chronic kidney disease stage 3 subtype: stage 3b (GFR 30-44) Qualified Code(s): N18.32 - Chronic kidney disease, stage 3b
[2021-01-29] MEDS: ACETAMINOPHEN 325 MG TAB PO PRN ×2 (13:12→21:02)
[2021-01-29] MEDS: ASPIRIN 81 MG ECTAB PO SCH (20:56)
[2021-01-29] MEDS: ATORVASTATIN 40 MG TAB PO SCH (20:56)
[2021-01-29] MEDS: CEFEPIME 2,000 MG in SYRINGE 0 ML IV SCH (21:03)
--- NOTE | 2021-01-29 21:47 | XCELERA ---
[id number]
--- NOTE | 2021-01-30 06:52 | Electrocardiogram Report ---
Test Reason : Blood Pressure : / mmHG Vent. Rate : 118 BPM Atrial Rate : 118 BPM P-R Int : 158 ms QRS Dur : 096 ms QT Int : 318 ms P-R-T Axes : 066 031 -58 degrees QTc Int : 445 ms Sinus tachycardia Nonspecific T wave abnormality Abnormal ECG When compared with ECG of 28-JAN-2021 11:42, No significant change was found Confirmed by Finn Harris ([id number]) on 01/30/2021 6:52:31 AM Referred By: REFERRED SELF Confirmed By:Finn Harris
[2021-01-30] MEDS: LIDOCAINE 5% 1 PATCH TD SCH (07:40)
[2021-01-30] MEDS: METOPROLOL SUCC 25MG EXT REL TAB PO SCH (07:40)
[2021-01-30] MEDS: HEPARIN SOD 5,000 UNIT/0.5 ML VIAL SQ SCH ×2 (07:40→21:18)
[2021-01-30] MEDS: INSULIN GLARGINE SOLOSTAR 100 UNITS/ML 3 ML PEN SC SCH ×2 (07:41→21:28)
[2021-01-30] MEDS: LEVOTHYROXINE SODIUM 50 MCG TABLET PO SCH (07:41)
[2021-01-30] MEDS: CEROVITE ADV FORMULA TAB PO SCH ×2 (07:41→21:16)
[2021-01-30] MEDS: INSULIN ASPART 100 UNITS/ML 3 ML PEN SC SCH ×4 (07:41→21:26)
[2021-01-30 08:28] LABS: BUN Creatinine Ratio 24.4 (10-20); Calcium 8.3 mg/dl (8.5-10.1); Creatinine Clr Calc Pharmacy 27.2 ml/min; Est GFR (African American) 23.6 ml/min; Est GFR (Non-African American) 20.4 ml/min; Potassium 4.4 mmol/L (3.5-5.1)
--- NOTE | 2021-01-30 09:33 | Nephrology Progress Note ---
Date of Service January 30, 2021 Assessment & Plan (1) Acute kidney injury: Plan: 70 y o F with MARTHA due to dehydration and diarrhea. B/L cr 1.2-1.4, Cr on admission 3.3. Renal USG normal. UA with low grade proteinuria, hematuria and bacteruria, on Cefepime. Renal function improving, BP acceptable. --expect renal function to continue to improve slowly, maintain po intake --renal panel, electrolyte in am Will follow. Admission and Anticipated Discharge Date Admission Date: January 28, 2021 Subjective Zaynab overall has been feeling better, po intake slightly improved. denies SOB, F/C. Renal function slowly improving, electrolyte acceptable. Decent UO. Review of Systems Review of Systems: Detail ROS was otherwise negative. Physical Exam Constitutional: well developed and well nourished; no acute distress Respiratory: normal respiratory effort, lungs clear to auscultation Cardiovascular: Rate/Rhythm: regular rate and regular rhythm Heart Sounds: normal S1 and normal S2 Extremities: + edema (trace b/l LE edema.) Neurologic: moves all extremities and awake; not confused Psychiatric: A+Ox3, euthymic affect Results & Data ([facility]) Vital Signs (Past 12 Hours) Vital Signs Temp Pulse Pulse Resp BP BP Pulse Ox 01/30/21 07:37 36.5 C 93 H 18 110/73 95 01/30/21 03:36 36.6 C 94 H 18 129/75 93 01/29/21 22:00 36.6 C 107 H 109 H 18 106/68 90 PG Care Time/CCT Total # of Minutes Spent Total Time Spent with Patient: Total time spent is greater than 50% in coordination of care (as documented) at patient's floor/unit and/or counseling patient: Coding Level of Care Code 89410 Subseq Hosp Care Lvl 2 Diagnoses Acute kidney injury N17.9
--- NOTE | 2021-01-30 09:42 | Hospitalist Progress Note ---
Date of Service January 30, 2021 Assessment & Plan (1) UTI (urinary tract infection): Plan: Zaynab Toscano is a 70-year-old female with PMH of CHF, CKD, DM 2, hypertension, hypothyroidism, ischemic cardiomyopathy who presented to [facility] with shortness of breath and general malaise as well as diarrheal illness. Sepsis with gram-negative bacteremia, likely urinary source -Elevated lactate at 4.3, then downtrending to 3.2 -Blood cultures growing gram-negative bacilli, further speciation and sensitivities pending -Urine culture with Klebsiella resistant only to nitrofurantoin -Received several 500 mL boluses -No longer hypotensive-- if recurrence, can consider additional boluses with care not to cause fluid overload in CHF patient -Continue broad-spectrum coverage with cefepime pending blood cultures -Monitor closely -Trend CBC MARTHA on CKD -Creatinine improving, though still elevated -Received IV fluid boluses as well as maintenance IV fluids overnight -However, IVF stopped due to concern for fluid overload in the setting of CHF -Nephrology consulted --expect renal function to continue to improve slowly, maintain po intake --renal panel, electrolyte in am - Continue to monitor renal function Elevated troponin level - likely demand ischemia -Troponin levels: 1.030 -> 2.000 - > 2.020 -> 2.060 -> 2.020 -Patient without cardiac symptoms -Sinus tachycardia on EKG and overnight on telemetry, no ST changes -Consult cardiology considering h/o CAD -Continue aspirin, atorvastatin, metoprolol. -Check echo Chronic CHF/Ischemic cardiomyopathy -CXR with mild cardiomegaly and pulmonary vascular congestion -Received a dose of Lasix 40 mg IV on arrival -However, per admission note, POC ultrasound showing collapsed IVC pointing to intravascular depletion -Received fluids as above discontinued this morning due to concern for mild fluid overload -Check echo -Monitor fluid status closely -Strict I/O's -Daily weights -Holding furosemide. Lasix if overt fluid overload -Hold home spironolactone -Continue home Toprol XL -Continue home aspirin Diarrhea -Acute diarrhea in the setting of multiple medical issues as above -C. difficile test and Giardia stool antigen ordered but not collected so far -Unlikely to be related to either of above, especially considering no BM since admission -Continue to monitor Diabetes -Hold home regimen -Sliding scale while admitted Hypothyroidism -Continue home Synthroid Hyperlipidemia -Continue home atorvastatin FEN/GI: Carb consistent, hold IV fluids for now DVT prophylaxis: Heparin 5000 units subcu every 12 hours Dispo: PCU/telemetry, DC plan pending further clinical improvement Code: FULL CODE (2) Hypothyroidism: (3) Hypertension: (4) Diabetes: (5) Acute kidney injury: (6) Elevated troponin I level: (7) Acute renal failure (ARF): (8) Hypercholesterolemia: (9) CKD (chronic kidney disease): Admission and Anticipated Discharge Date Admission Date: January 28, 2021 Supervising Physician Co-Signing Physician Notes Resident Physician Supervision Note: I independently interviewed and examined the patient and verified the young history and physical, reviewed labs and image studies and agree with resident Dr. Estrella findings and care plan. Subjective Seen at bedside this AM. Reports feeling much improved. She has been feeling like she's breathing better. Denies fever, chills, n/v, SOB, abd pain, CP, palp. Review of Systems Review of Systems: per subjective Physical Exam Physical Exam: GENERAL: A&Ox3. NAD. HEENT: PERRL, EOMI. Moist mucous membranes. CHEST/LUNGS: CTAB A/P. No crackles, wheezes, rales, rhonchi. HEART: RRR. No m/g/r. No carotid bruits. ABDOMEN: NT/ND, soft. BS+ x4 EXTREMITIES: No cyanosis, no clubbing, no edema SKIN: Warm and dry. No rashes or lesions. PSYCHIATRIC: Euthymic affect, no SI, no pressured speech, no hallucinations NEUROLOGIC: No FND. CN II-XII grossly intact. Results & Data Results & Data ([facility]) Vital Signs (Past 12 Hours) Vital Signs Temp Pulse Pulse Resp BP BP Pulse Ox 01/30/21 07:37 36.5 C 93 H 18 110/73 95 01/30/21 03:36 36.6 C 94 H 18 129/75 93 01/29/21 22:00 36.6 C 107 H 109 H 18 106/68 90 Resident Activity Tracking Resident Involvement: Resident Care Provided Care Provided: Adult Hospital Medicine (1) Acute renal failure (ARF) Acute renal failure type: unspecified Qualified Code(s): N17.9 - Acute kidney failure, unspecified (2) Hypothyroidism Hypothyroidism type: acquired Qualified Code(s): E03.9 - Hypothyroidism, unspecified (3) CKD (chronic kidney disease) Chronic kidney disease stage: stage 3 (moderate) Chronic kidney disease stage 3 subtype: stage 3b (GFR 30-44) Qualified Code(s): N18.32 - Chronic kidney disease, stage 3b
--- NOTE | 2021-01-30 14:51 | Cardiology Consultation ---
Date of Consultation January 30, 2021 Assessment & Plan (1) Elevated troponin I level: (2) Acute kidney injury: (3) CAD (coronary artery disease): (4) Ischemic cardiomyopathy: (5) Sepsis: ASSESSMENT/PLAN: 1. Elevated troponin: She did not present with acute coronary syndrome. Tropo annita elevation likely due to demand ischemia from sepsis with bacteremia in the setting of severe multivessel CAD. Continue medical therapy for underlying CAD. 2. Multivessel CAD: No angina. Continue aspirin 81 mg daily. Continue high- intensity statin therapy and beta-angelica. 3. Ischemic cardiomyopathy: LV systolic function appears moderately to severely reduced, a bit worse than previous echo. Continue metoprolol succinate. If renal function improves adequately, consider resuming AUGUSTIN-inhibitor. She appears euvolemic. She has not required loop diuretic as an outpatient. 4. Sepsis with gram-negative bacteremia: Thought to be UTI as source. As per primary service. 5. Acute kidney injury: Renal function is improving. Defer to Nephrology and primary service. 6. Disposition: Please call with any other questions or concerns. Dr. Fulton will likely resume her cardiology care tomorrow when he returns. Patient care communicated with Dr. Cohen of the primary hospitalist service. Thank you for allowing me to participate in the care of your patient. Please call for any other questions or concerns. Sincerely, Chris Harris M.D. History of Present Illness Reason for Consultation: elevated troponin Requesting Physician: Josi Cohen MD Attending Physician: Josi Cohen MD History of Present Illness Mrs. Toscano is a pleasant 70-year-old female with history significant for CAD, ischemic cardiomyopathy, hypertension, dyslipidemia, CKD, and type 2 diabetes. Her primary card grinder helper is Dr. Fulton. Her cardiac history is notable for ischemic cardiomyopathy with previous EF reported as 40% in 2017. She had a cardiac catheterization in 2007, which reportedly demonstrated mid circumflex 100% with collaterals, proximal circumflex 75%, proximal RCA 100% with collaterals. She was admitted on 01/28/2021 with acute kidney injury and found to be septic with UTI and gram-negative bacteremia. Her creatinine on presentation was 3.33 and has since trended down to 2.33. Her troponin was 1.03 and trended upward to 2.06. Prior to presentation, she stated I felt terrible. She denies chest pain, shortness of breath, syncope, near-syncope, palpitations, or edema. She stated that she was sleepy all of the time and had not been eating much and drinking less than usual. She had been experiencing diarrhea for 2 days, 2 or 3 episodes per day. She was then found to be septic with UTI and gram-negative bacteremia. She is feeling much better now but not yet back to baseline. She has continued during her hospital stay to denies chest pain or shortness of breath. She is being followed by Nephrology. She denies nausea, vomiting, fevers, melena, hematochezia, hematuria, or other bleeding. Review of systems: As above. Review of systems otherwise negative/unremarkable. Family history: Many family members had diabetes. Grandfather had CAD. Social history: She quit smoking many years ago. Rare alcohol. Lives at home with her and son. She has 4 children in total. 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 She was unaccompanied. Allergies Allergy/AdvReac Type Severity Reaction Status Date / Time amoxicillin Allergy Intermediate RASH Verified 01/28/21 13:26 fexofenadine Allergy Intermediate HIVES,SOB Verified 01/28/21 13:26 nickel Allergy Intermediate RASH, Verified 01/28/21 13:26 ITCHING acrylic acid Allergy Mild itching Verified 01/28/21 13:26 with fake nails Home Medications Medication Instructions Recorded Confirmed Type cholecalciferol (vitamin D3) 25 1,000 units PO BID cap 12/30/18 01/28/21 History mcg (1,000 unit) capsule (Vitamin D3) lancets 33 gauge (OneTouch Delica #100 ea 12/30/18 09/22/20 History Lancets) cyanocobalamin (vitamin B-12) 1,000 mcg PO QAM tab 12/31/18 01/28/21 History 1,000 mcg tablet (Vitamin B-12) aspirin 81 mg tablet,delayed 81 mg PO HS 02/29/20 01/28/21 History release (Adult Low Dose Aspirin) atorvastatin 80 mg tablet (Lipitor) 80 mg PO HS 02/29/20 01/28/21 History clobetasol 0.05 % topical ointment 1 appln TOP UD PRN 02/29/20 01/28/21 History (Temovate) levothyroxine 50 mcg tablet 50 mcg PO DAILYBB 02/29/20 01/28/21 History (Synthroid) metoprolol succinate 25 mg 25 mg PO QAM 02/29/20 01/28/21 History tablet,extended release 24 hr (Toprol XL) blood sugar diagnostic (OneTouch #100 ea 06/04/20 06/04/20 Rx Ultra Blue Test Strip) metformin 500 mg tablet 500 mg PO BID 06/04/20 01/28/21 History pen needle, diabetic 31 gauge x #200 ea 06/04/20 06/04/20 Rx 5/16" (BD Ultra-Fine Short Pen Needle) vit C 250 mg-vit E 90 mg-zinc 40 1 tab PO BIDM 06/04/20 01/28/21 History mg-copper 1 kl-[id number] capsule (PreserVision AREDS-2) insulin NPH-regular 70-30 U-100 See Rx Instructions .ROUTE .COMPLEX 01/28/21 01/28/21 History insulin 100 unit/mL subcutaneous pen spironolactone 25 mg tablet 25 mg PO BID 01/28/21 01/28/21 History (Aldactone) Patient History Medical History (Updated 01/30/21 @ 15:14 by Finn Harris MD) ARF (acute renal failure) (01/28/14) ASCVD (arteriosclerotic cardiovascular disease) Asymptomatic carotid artery stenosis Colon polyps Coronary artery arteriosclerosis posterior wall AK, 100% mid LCx with collaterals, 75% proximal LCx, 100% proximal RCA with collaterals Diabetes mellitus type II, uncontrolled Hypertension Hypothyroidism Ischemic cardiomyopathy Lichen sclerosus et atrophicus Macular degeneration Morbid obesity with BMI of 40.0-44.9, adult Myocardial Infarction 05/14/2007--had heart cath done, no stents--follows with Dr. Fulton Nephrolithiasis Obesity Sepsis (01/28/14) Surgical History History of appendectomy History of benign breast biopsy History of bilateral tubal ligation History of cardiac cath (~05/14/07) @ [facility] d/t IA--no stents placed--follows with Dr. Fulton History of carpal tunnel release of both wrists History of colonoscopy with polypectomy History of dilatation and curettage x3 History of hip surgery (~03/01/20) Left short trochanteric intermedullary Nail by Dr. 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) @ [facility] [place] History of tonsillectomy and adenoidectomy History of total left knee replacement History of wisdom tooth extraction Family History Father Family history of diabetes mellitus Grandmother (Maternal) Family history of diabetes mellitus Uncle Family history of diabetes mellitus Uncle Family history of diabetes mellitus Uncle Family history of diabetes mellitus Brother Family history of diabetes mellitus Grandfather (Paternal) Family hx of colon cancer Other No family history of adverse response to anesthesia Social History Smoking Status: Former smoker Second Hand Exposure: No; Do You Dip or Chew Tobacco: No; Hx Alcohol Use: Yes Alcohol type: wine Hx Substance Use: No Preferred Language: Czech Communication Ability: Effective Duplicate Maker Required: No Beliefs That Will Affect Care: None Current Living Situation: Family Current Living Situation Comment: and son Other Information That Helps Us Care for You: No Feels Safe at Home: Yes Safety Concerns: Feels Safe At This Time Assistive Devices: Oxygen - Continuous Physical Exam Physical Exam: Gen.: No acute distress. Alert and oriented. HEENT: Anicteric sclera. Neck: No JVD. No bruits. Normal carotid upstrokes bilaterally. Cardiac: PMI was nonpalpable. No ventricular heave. Regular. Distant heart sounds. No murmurs, rubs, or gallops. Pulmonary: Clear to auscultation bilaterally without wheezes, rales, or rhonchi. Abdomen: Soft, nontender, nondistended, with normoactive bowel sounds. No bruits noted. Extremities: 1+ radial pulses bilaterally. 2+ posterior tibialis pulses bilaterally. Trace bilateral lower extremity edema. No cyanosis. Psychiatric: Affect appears appropriate. Results & Data ([facility]) Vital Signs (Past 12 Hours) Vital Signs Temp Pulse Pulse Resp BP BP Pulse Ox 01/30/21 12:08 36.6 C 100 H 20 117/79 95 01/30/21 09:53 91 H 01/30/21 07:37 36.5 C 93 H 18 110/73 95 01/30/21 03:36 36.6 C 94 H 18 129/75 93 Intake & Output 01/28/21 01/29/21 01/30/21 01/31/21 06:59 06:59 06:59 06:59 Intake Total 3349.166 / 3349.166 1775 / 1775 240 / 240 Output Total 600 / 600 1300 / 1300 650 / 650 Balance 2749.166 / 2749.166 475 / 475 -410 / -410 Weight 259 lb 11.272 oz 262 lb 12.656 oz Laboratory Results Laboratory Results - last 24 hr 01/29/21 01/29/21 01/30/21 16:34 20:18 07:18 Sodium Potassium Chloride Carbon Dioxide Anion Gap BUN Creatinine Est Cr Clr Drug Dosing Est GFR ( Amer) Est GFR (Non-Af Amer) BUN/Creatinine Ratio Glucose POC Glucose 150 H 177 H 141 H Calcium Magnesium 01/30/21 01/30/21 07:21 11:17 Sodium 139 Potassium 4.4 Chloride 108 H Carbon Dioxide 25 Anion Gap 6.0 BUN 57 H Creatinine 2.33 H D Est Cr Clr Drug Dosing 27.2 Est GFR ( Amer) 23.6 Est GFR (Non-Af Amer) 20.4 BUN/Creatinine Ratio 24.4 H Glucose 145 H POC Glucose 150 H Calcium 8.3 L Magnesium 2.0 Diagnostic Findings telemetry personally reviewed: Normal sinus rhythm and sinus tachycardia. ECGs personally reviewed: ECG 01/30/2021 at 6:42 a.m.: Sinus rhythm with PVCs 91 bpm. ECG 01/28/2021 at 9:49 p.m.: Sinus tachycardia 118 bpm. Nonspecific T-wave abnormality. Echo 01/29/2021: Mildly dilated LV with moderately to severely reduced systolic function. EF 30-35%. Severe hypokinesis to akinesis of the inferolateral wall, otherwise global hypokinesis. Mild LVH. No significant valvular abnormalities. Compared to 01/19/2017 study, LV systolic function has declined. Medications Administered Current Inpatient Medications Acetaminophen (Acetaminophen 325 Mg Tab) 650 mg PO Q4H PRN PRN Reason: Pain or Fever Stop: 02/27/21 15:59 Last Admin: 01/29/21 21:02 Dose: 650 mg Documented by: Al Hydrox/Mg Hydrox/Simethicone (Aluminum/Magnesium Susp 30 Ml Udc) 15 ml PO Q4H PRN PRN Reason: Dyspepsia Stop: 02/27/21 15:59 Aspirin (Aspirin 81 Mg Ectab) 81 mg PO PM KASH Stop: 02/27/21 20:59 Last Admin: 01/29/21 20:56 Dose: 81 mg Documented by: Atorvastatin Calcium (Atorvastatin 40 Mg Tab) 80 mg PO PM KASH Stop: 02/27/21 20:59 Last Admin: 01/29/21 20:56 Dose: 80 mg Documented by: Dextrose (Dextrose 50% 50 Ml Syringe) 25 - 50 ml IV UD PRN; Protocol PRN Reason: Hypoglycemia Protocol Stop: 02/27/21 15:59 Glucagon (Glucagon For Inj 1 Mg Vial) 1 mg SQ UD PRN; Protocol PRN Reason: Hypoglycemia Protocol Stop: 02/27/21 15:59 Glucose (Glucose 10 Tabs/Tube) 4 - 8 tabs PO UD PRN; Protocol PRN Reason: Hypoglycemia Protocol Stop: 02/27/21 15:59 Glucose (Glucose 40% Gel 15 Gm Tube) 15 - 30 gm PO UD PRN; Protocol PRN Reason: Hypoglycemia Protocol Stop: 02/27/21 15:59 Heparin Sodium (Porcine) (Heparin Sod 5,000 Unit/0.5 Ml Vial) 5,000 units SQ Q12 KASH Stop: 02/27/21 20:59 Last Admin: 01/30/21 07:40 Dose: 5,000 units Documented by: Cefepime HCl 2,000 mg/ Syringe 20 mls @ 5 mls/min IV Q24H KASH; Protocol Stop: 01/30/21 23:59 Last Admin: 01/29/21 21:03 Dose: 5 mls/min Documented by: Insulin Aspart (Insulin Aspart 100 Units/Ml 3 Ml Pen) 0 units SC ACHS [facility] Stop: 02/27/21 16:29 Last Admin: 01/30/21 12:15 Dose: 3 units Documented by: Insulin Glargine (Insulin Glargine Solostar 100 Units/Ml 3 Ml Pen) 0 units SC BID [facility]; Protocol Stop: 02/28/21 08:59 Last Admin: 01/30/21 07:41 Dose: 10 units Documented by: Levothyroxine Sodium (Levothyroxine Sodium 50 Mcg Tablet) 50 mcg PO QAM [facility] Stop: 02/28/21 08:59 Last Admin: 01/30/21 07:41 Dose: 50 mcg Documented by: Lidocaine (Lidocaine 5% 1 Patch) 1 patch TD QAM [facility] Stop: 02/27/21 16:29 Last Admin: 01/30/21 07:40 Dose: 1 patch Documented by: Metoprolol Succinate (Metoprolol Succ 25mg Ext Rel Tab) 25 mg PO QAM [facility] Stop: 02/28/21 08:59 Last Admin: 01/30/21 07:40 Dose: 25 mg Documented by: Metoprolol Tartrate (Metoprolol Tartrate 1 Mg/Ml Vial) 5 mg IV Q4 PRN PRN Reason: sbp> 185, dbp >95, HR >120 Stop: 02/27/21 15:59 Miscellaneous (Remove Lidoderm Patch) 1 ea N/A DAILY@2100 [facility] Stop: 02/27/21 20:59 Last Admin: 01/29/21 20:57 Dose: 1 ea Documented by: Miscellaneous (Carbohydrates For Hypoglycemia ) 15 - 30 gm PO UD PRN PRN Reason: Hypoglycemia Protocol Stop: 02/27/21 15:59 Miscellaneous Information (Pharmacy Glycemic Mgmt Consult) 1 ea N/A UD PRN; Protocol PRN Reason: Consult Stop: 02/27/21 15:59 Morphine Sulfate (Morphine Sulfate 2 Mg/Ml Carp) 2 mg IV Q4 PRN PRN Reason: Pain Stop: 02/11/21 13:16 Last Admin: 01/28/21 13:28 Dose: 2 mg Documented by: Multivitamins/Minerals (Cerovite Adv Formula Tab) 1 tab PO BID [facility] Stop: 02/27/21 20:59 Last Admin: 01/30/21 07:41 Dose: 1 tab Documented by: Ondansetron HCl (Ondansetron Inj 2 Mg/Ml 2 Ml Vial) 4 mg IV Q6H PRN PRN Reason: Nausea Stop: 02/27/21 15:59 PG Care Time/CCT Total # of Minutes Spent Total Time Spent with Patient: Total time spent is greater than 50% in coordination of care (as documented) at patient's floor/unit and/or counseling patient: Coding Level of Care Code 71693 Initial Inpt Care Lvl 3 Diagnoses Elevated troponin I level R77.8 Acute kidney injury N17.9 CAD (coronary artery disease) I25.10 Ischemic cardiomyopathy I25.5 Sepsis A41.9
--- NOTE | 2021-01-30 15:00 | Pharmacy Report ---
Pharmacy Glycemic Short Note 2 - Date of Service January 30, 2021 - Glycemic Short BSG Results (Last 24 hours): 01/29/21 01/29/21 01/30/21 16:34 20:18 07:18 Glucose POC Glucose 150 H 177 H 141 H 01/30/21 01/30/21 07:21 11:17 Glucose 145 H POC Glucose 150 H OUTPATIENT ANTIDIABETIC REGIMEN: * Insulin 70/30; 20 units SQ qam, 15 units SQ qpm * metformin 500 mg PO BID * A1c = 8.4% (01/29/21) ASSESSMENT: * Zaynab is a 70 yo diabetic admitted with gram negative bacteremia, UTI, and MARTHA on CKD * She has required 27-30 units of insulin per day since admission. Minimum carbohydrate intake. * Will continue to dose basal insulin per scale * Will tighten novolog parameters for better post prandial control PLAN FOR INPATIENT GLYCEMIC CONTROL: * Hold outpatient oral diabetes medications * Basal insulin * Lantus per scale SQ BID: * 6 units for BSG < 120 * 10 units for BSG 120 -160 * 14 units for BSG > 160 * Bolus insulin * NovoLog per scale ACHS or Q6hrs while NPO * Goal Range: Low 110 mg/dL - High 140 mg/dL * Correction Factor: 20 mg/dL/unit * Nutritional / Prandial insulin per carb ratio of 1 unit per 7 grams CHO consumed thank you
[2021-01-30] MEDS: ASPIRIN 81 MG ECTAB PO SCH (21:16)
[2021-01-30] MEDS: ATORVASTATIN 40 MG TAB PO SCH (21:17)
[2021-01-30] MEDS: CEFEPIME 2,000 MG in SYRINGE 0 ML IV SCH (21:39)
--- NOTE | 2021-01-31 06:19 | Electrocardiogram Report ---
Test Reason : Blood Pressure : / mmHG Vent. Rate : 091 BPM Atrial Rate : 091 BPM P-R Int : 164 ms QRS Dur : 098 ms QT Int : 370 ms P-R-T Axes : 033 005 000 degrees QTc Int : 455 ms Sinus rhythm with frequent Premature ventricular complexes Low voltage QRS Nonspecific T wave abnormality Abnormal ECG When compared with ECG of 28-JAN-2021 21:49, Premature ventricular complexes are now Present Confirmed by Finn Harris ([id number]) on 01/31/2021 6:19:12 AM Referred By: REFERRED SELF Confirmed By:Finn Harris
[2021-01-31 07:42] LABS: BUN Creatinine Ratio 26.5 (10-20); Calcium 8.7 mg/dl (8.5-10.1); Creatinine Clr Calc Pharmacy 34.4 ml/min; Est GFR (African American) 31.6 ml/min; Est GFR (Non-African American) 27.3 ml/min; Magnesium 2.1 mg/dl (1.8-2.4); Potassium 4.6 mmol/L (3.5-5.1)
[2021-01-31 07:54] LABS: Hemoglobin 11.4 g/dL (12.0-16.0); Mean Corpuscular Hemoglobin 30.1 pg (25-34); Mean Corpuscular Hgb Conc 31.7 g/dL (32-36); Mean Platelet Volume 13.7 fL (7.4-10.4); Platelet Count 72 K/uL (130-400); RDW Coefficient of Variation 13.8 % (11.5-14.5); RDW Standard Deviation 47.8 fL (36.4-46.3); Red Blood Count 3.79 M/uL (4.2-5.4); White Blood Count 8.76 K/uL (4.8-10.8)
[2021-01-31 07:55] LABS: Basophils # (auto) 0.02 K/uL (0-0.2); Basophils % (auto) 0.2 %; Dohle Bodies 1+; Eosinophils % (auto) 6.8 %; Immature Granulocytes # (auto) 0.03 K/uL (0.00-0.02); Immature Granulocytes % (auto) 0.3 %; Lymphocytes # (auto) 0.75 K/uL (1.2-3.4); Lymphocytes % (auto) 8.6 %; Monocytes # (auto) 1.54 K/uL (0.11-0.59); Monocytes % (auto) 17.6 %; Neutrophils # (auto) 5.82 K/uL (1.4-6.5); Neutrophils % (auto) 66.5 %; Platelet Estimate Decreased (Normal)
--- NOTE | 2021-01-31 08:51 | Nephrology Progress Note ---
Date of Service January 31, 2021 Assessment & Plan (1) Acute kidney injury: Plan: 70 y o F with MARTHA due to dehydration and diarrhea. B/L cr 1.2-1.4, Cr on admission 3.3. Renal USG normal. UA with low grade proteinuria, hematuria and bacteruria, on Cefepime. Renal function improving, BP acceptable. --expect renal function to continue to improve slowly, maintain po intake, avoid NSAID's --OK to be discharged,has f/u scheduled with Dr. Velazco. Will sign off.. Admission and Anticipated Discharge Date Admission Date: January 28, 2021 Subjective Zaynab doing well,, po intake improved, diarrhea resolved. denies SOB, F/C. Renal function continues to improve, electrolyte acceptable. Decent UO. BP fair. Review of Systems Review of Systems: Detail ROS was negative. Physical Exam Constitutional: well developed and well nourished; no acute distress Respiratory: normal respiratory effort, lungs clear to auscultation Cardiovascular: Rate/Rhythm: regular rate and regular rhythm Heart Sounds: normal S1 and normal S2 Extremities: + edema (trace b/l LE edema.) Neurologic: moves all extremities and awake; not confused Psychiatric: A+Ox3, euthymic affect Results & Data ([facility]) Vital Signs (Past 12 Hours) Vital Signs Temp Pulse Pulse Resp BP BP Pulse Ox 01/31/21 08:04 36.6 C 83 17 120/81 96 01/30/21 23:57 37 C 108 H 18 130/86 97 01/30/21 23:00 110 H PG Care Time/CCT Total # of Minutes Spent Total Time Spent with Patient: Total time spent is greater than 50% in coordination of care (as documented) at patient's floor/unit and/or counseling patient: Coding Level of Care Code 91036 Subseq Hosp Care Lvl 2 Diagnoses Acute kidney injury N17.9
[2021-01-31] MEDS: CEROVITE ADV FORMULA TAB PO SCH (09:05)
[2021-01-31] MEDS: LEVOTHYROXINE SODIUM 50 MCG TABLET PO SCH (09:05)
[2021-01-31] MEDS: HEPARIN SOD 5,000 UNIT/0.5 ML VIAL SQ SCH (09:05)
[2021-01-31] MEDS: METOPROLOL SUCC 25MG EXT REL TAB PO SCH (09:05)
[2021-01-31] MEDS: LIDOCAINE 5% 1 PATCH TD SCH (09:06)
[2021-01-31] MEDS: INSULIN GLARGINE SOLOSTAR 100 UNITS/ML 3 ML PEN SC SCH (09:06)
[2021-01-31] MEDS: INSULIN ASPART 100 UNITS/ML 3 ML PEN SC SCH ×2 (09:08→12:42)
[2021-01-31 09:54] LABS: Fibrinogen 789 mg/dl (184-400); Prothrombin Time 9.9 Seconds (9.0-12.0)
--- NOTE | 2021-01-31 10:55 | Discharge Summary ---
Date of Service January 31, 2021 Admission HPI Per Admitting Provider 70-year-old female history of heart failure reduced ejection fraction EF 40% and chronic kidney disease stage III typically followed by mae Young nephrology who presents with increasing shortness of breath and overall general discomfort with increasing hip pain in correlation with concomitant diarrheal illnesses which began 3 days ago after return from [place]. Patient states her diarrhea is brown nothing typical Carlos surprising about it. She said decreased urine output of dark urine. She says she is trying to keep up with her oral intake. She did not have her home medications today which include medications for her heart failure and her insulin. In the room she is in significant discomfort she is tachypneic she is relatively hypoxemic and she has signs of heart failure clinically. Chest x-ray corroborates this with the pulmonary edema. However she does have elevation of creatinine 3.3 from her typical baseline in the low ones Patient has not been febrile she is a Covid test pending she is fully vaccinated, no one else at home is sick or no one else from the trip has been ill with diarrheal illness Admission Exam Per Admitting Provider The patient appeared in moderate distress significantly uncomfortable Vital signs as documented. Head exam is normocephalic atraumatic Neck is with JVD, thyromegaly, or carotid bruits. Lungs are bibasilar [facility] up Cardiac exam, Rhythm is cardiac. No murmurs, rubs or gallops. Abdominal exam reveals normal bowel sounds, soft non tender, no masses Extremities are trace edematous and both pedal pulses are present Neurologic exam is alert and oriented, no focal loss of strength or sensation Skin is without bruises or rashes Psychologically is without concerns for anxiety or depression Principal Diagnosis Sepsis with gram negative bacteremia, urinary source Discharge Exam GENERAL: No acute distress. Well developed and well nourished. Vital signs reviewed as above. EYES: EOMI. Anicteric sclerae. HENT: Moist mucous membranes. RESPIRATORY: Clear to auscultation bilaterally. No wheezing, rales, or rhonchi. CARDIOVASCULAR: Regular rate and rhythm. No murmurs. ABDOMEN: Soft, non-tender and non-distended. Normal bowel sounds. EXTREMITIES: No edema. Non-tender. SKIN: Warm, dry. No rashes or lesions. NEUROLOGIC: A/O x3. No focal neurological deficits. PSYCHIATRIC: Cooperative. Appropriate mood and affect. Discharge Data Allergies Allergy/AdvReac Type Severity Reaction Status Date / Time amoxicillin Allergy Intermediate RASH Verified 01/28/21 13:26 fexofenadine Allergy Intermediate HIVES,SOB Verified 01/28/21 13:26 nickel Allergy Intermediate RASH, Verified 01/28/21 13:26 ITCHING acrylic acid Allergy Mild itching Verified 01/28/21 13:26 with fake nails Consultations 01/28/21 12:40 ED Decision to Admit Stat 01/28/21 16:00 Consult Nephrology Routine 01/29/21 17:18 Consult Cardiology Routine Ordered Studies 01/28/21 16:00 US renal/blad retro comp Routine Hospital Course (1) UTI (urinary tract infection): Zaynab Toscano is a 70-year-old female with PMH of CHF, CKD, DM 2, hypertension, hypothyroidism, ischemic cardiomyopathy who presented to [facility] with shortness of breath and general malaise as well as diarrheal illness. Sepsis with gram-negative bacteremia, urinary source -Elevated lactate at 4.3, downtrended to 3.2 -Blood cultures positive for Klebsiella, urine cx positive for Klebsiella (only resistant to nitrofurantoin) -Hypotension resolved after several 500 mL boluses -Received cefepime during hospitalization, transitioned to Cefdinir 300mg po BID x11 days on discharge (for a total of 14 day abx therapy) MARTHA on CKD -Creatinine improving, though still elevated; Cr on discharge 1.83 (admitted with Cr 3.36) -Nephrology consulted: expect renal function to continue to improve slowly, maintain po intake (recommend 80oz daily) -Scheduled for nephro follow up with Dr. Velazco on 03/09/21 -Recommend repeat BMP in 3-5 days with PCP (Dr. Fulton) follow up; repeat labs ordered on discharge and patient instructed to have labs drawn prior to follow up appointment. Elevated troponin level - likely demand ischemia -Troponin levels: 1.030 -> 2.000 - > 2.020 -> 2.060 -> 2.020 -Patient without cardiac symptoms -Consult cardiology considering h/o CAD -Per cardiology, no evidence to suggest myocardial ischemia -Continue aspirin, atorvastatin, metoprolol. -Echo 01/29/21: mildly dilated LV w/ moderately to severely reduced SF. EF 30- 35%. Severe hypokinesis to akinesis of the inferolateral wall; otherwise, global hypokinesis. Mild concentric LVH. No significant valvular abnormalities. Compared to prior study on 01/19/2017, LV systolic function has declined. -Plan for repeat echo in 3-4 weeks (on 02/22/21) as scheduled per cardiology Chronic CHF/Ischemic cardiomyopathy/CAD -CXR with mild cardiomegaly and pulmonary vascular congestion -Received a dose of Lasix 40 mg IV on arrival -However, per admission note, POC ultrasound showing collapsed IVC pointing to intravascular depletion -Continue home Toprol XL, ASA, and high dose statin. -Patient also on home spironolactone that is currently being held. Consider restarting in outpatient setting. -Would also consider starting AUGUSTIN-inhibitor once renal function improves and patient euvolemic -F/u with PCP/inker machine in 3-5 days Diarrhea -Acute diarrhea in the setting of multiple medical issues as above -C. difficile test and Giardia stool antigen ordered but no adequate sample was obtained during hospitalization. Can be collected in outpatient setting if diarrhea is recurrent. Diabetes -Home regimen held while admitted. Restarted on discharge. Hypothyroidism -Continue home Synthroid Hyperlipidemia -Continue home atorvastatin (2) Hypothyroidism: (3) Hypertension: (4) Diabetes: (5) Acute kidney injury: (6) Elevated troponin I level: (7) Acute renal failure (ARF): (8) Hypercholesterolemia: (9) CKD (chronic kidney disease): (10) Sepsis: Total Time Total Time Spent Total Time Spent (In Minutes): >30 Discharge Plan Discharge Items Patient Disposition: Home - Self-Care Reason For Visit: ACUTE KIDNEY INJURY, PULMONRAY EDEMA, ELEV Discharge Diagnosis: sepsis with gram negative bacteremia, urinary source Condition on Discharge: Good Activity: Per Instructions section Non-emergency contact: Primary Care Provider Call non-emergency contact if: you have any medication questions Follow-up/Referrals: Stu Fulton MD [Primary Care Provider] - 02/07/21 10:00 am ([place] Office with Alexandre MURILLO) Diet: Regular Ambulatory Orders: Basic Metabolic Panel (Routine) Timeframe: [id number] Location: Determined by Patient Ordered By: Zaynab De Leon Addtl Attending Provider Instructions: Sacha Worthy were admitted to [facility] from 01/28/21 to 01/31/21. You were admitted due to concerns of bacteremia (an infection in the blood stream) caused by an urinary infection. You were also found to have an MARTHA (acute kidney injury) likely due to dehydration/diarrheal illness. You have responded well to antibiotics and at this point we feel that it is safe for you to be discharged home. Please continue antibiotics with cefdinir 300mg by mouth twice a day -- this treatment will be completed on 02/11/2021. Continue to stay well hydrated. Goal for water intake should be 80 oz. per day, which is 4 of the [facility] cups. You should follow up with your primary physician, Dr. Fulton, within 3-5 days. Please have blood work (a BMP, CBC) drawn prior to that visit, plan to have the blood work done on 02/03/21. You can return to the hospital lab to have this lab completed. The order has already been placed for you. Return to the hospital for worsening symptoms or concerns of chest pain, shortness of breath, fever, abdominal pain, progressive weakness. Pending Studies at Discharge: No Stand-Alone Forms: My [facility], Smoking Cessation Medications and DC Order Prescriptions: New cefdinir 300 mg capsule 300 mg PO BID 11 Days Qty: 22 RF: 0 Continued (DME) lancets [OneTouch Delica Lancets] 33 gauge misc See Dose Instructions .ROUTE .MEDSUPPLY Qty: 100 RF: 0 cholecalciferol (vitamin D3) [Vitamin D3] 1,000 unit capsule 1,000 units PO BID RF: 0 (DME) pen needle, diabetic [BD Ultra-Fine Short Pen Needle] 31 gauge x 5/16" needle See Rx Instructions .ROUTE .MEDSUPPLY Qty: 200 RF: 4 metformin 500 mg tablet 500 mg PO BID RF: 0 PreserVision AREDS-2 [id number] uw-[id number]-bq-mg capsule 1 tab PO BIDM RF: 0 cyanocobalamin (vitamin B-12) [Vitamin B-12] 1,000 mcg tablet 1,000 mcg PO QAM RF: 0 (DME) OneTouch Ultra Blue Test Strip Strip See Rx Instructions .ROUTE .MEDSUPPLY Qty: 100 RF: 5 atorvastatin [Lipitor] 80 mg tablet 80 mg PO HS RF: 0 aspirin [Adult Low Dose Aspirin] 81 mg tablet,delayed release (DR/EC) 81 mg PO HS RF: 0 levothyroxine [Synthroid] 50 mcg tablet 50 mcg PO DAILYBB RF: 0 metoprolol succinate [Toprol XL] 25 mg tablet extended release 24 hr 25 mg PO QAM RF: 0 clobetasol [Temovate] 0.05 % ointment 1 appln TOP UD PRN (Reason: Rash) RF: 0 insulin NPH and regular human 100 unit/mL (70-30) insulin pen See Rx Instructions .ROUTE .COMPLEX RF: 0 Discontinued spironolactone [Aldactone] 25 mg tablet 25 mg PO BID RF: 0 Discharge Orders: Discharge Order (Routine); Ordered 01/31/21 Ordered By: Zaynab Negron/Other Patient Handouts: High Blood Sugar (Hyperglycemia), Managing Type 2 Diabetes Admission Data Admit Date/Time: 01/28/21 13:01 Attending Provider: Bobby Ca Admit Provider: Catracho Ugalde Primary Care Provider: Stu Fulton Other Providers: Catracho Ugalde ; Fam Bal ; Finn Harris Other Interventions: Discharge Summary Assessment (RN) Last Done: 01/31/21 16:15 Supervising Physician Co-Signing Physician Notes I personally examined the patient and verified all young points of history and exam, discussed case, and agree with decision making with Dr De Leon. Feeling better. Getting around okay. Feeling up to going home. Vitals noted, in general she is awake and alert pleasant no distress. HEENT normocephalic atraumatic mucous membranes moist. Breathing unlabored no accessory muscle use good effort. Skin shows no rashes no pallor or icterus. Neuro without focal deficits. Complicated UTI with gram-negative bacteremia/sepsis present on admissionnow improving, stable for home. Finish out course with p.o. antibiotics. Demand ischemiarelated to above. Appreciate cardiology input. Ongoing outpatient med management. Agree with resumption of AUGUSTIN inhibitor once renal function improves, consider long-acting nitrate, Plavix, or additional med managementbut will defer to cardiology discretion in this regard AKIfrom UTI, dehydration, all prerenal mechanisms. Improving. Not back to normal, but appearing good enough to be stable for home, encouraged p.o. fluid intake until normalizes, basic metabolic panel in 3 to 4 days, and then periodically depending on progress as an outpatient Thrombocytopenialikely related to infection, coags and fibrinogen are normal, safe for outpatient recheckwould anticipate CBC in 3 to 4 days when she has a basic metabolic panel checked. Stable from, otherwise as above. Resident Activity Tracking Resident Involvement: Resident Care Provided Care Provided: Adult [facility] Medicine
[2021-01-31] MEDS ORDERED: CEFEPIME 2,000 MG in SYRINGE 0 ML IV SCH ×2 (11:00→21:00)
--- NOTE | 2021-01-31 13:01 | Cardiology Progress Note ---
Date of Service January 31, 2021 Assessment & Plan (1) Elevated troponin I level: Plan: -likely from a supply demand mismatch at time of presentation. -no evidence to suggest myocardial ischemia. (2) CAD (coronary artery disease): Plan: -posterior wall AK, 100% mid LCx with collaterals, 75% proximal LCx, 100% proximal RCA with collaterals, 2007. -continue medical management. (3) Ischemic cardiomyopathy: Plan: -ejection fraction 30-35% on current echocardiogram. -inferolateral wall motion abnormality. -continue metoprolol succinate -resume ACEI once renal function improves. (4) Sepsis: Plan: -management per her hospitalist's team. Admission and Anticipated Discharge Date Admission Date: January 28, 2021 Subjective The patient is resting comfortably in bed without complaints of chest pain or dyspnea. Physical Exam Physical Exam: In general this is a mildly obese white female in no acute distress. HEENT exam is negative. Neck is supple with full carotid upstrokes. A quiet bruit is noted on the right. No JVD. There is no thyromegaly. Cardiovascular exam reveals a regular rhythm with a normal S1 and S2. No S3, S4, or murmurs are noted. Lungs are clear without rales, rhonchi, or wheezes. Abdomen is obese without bruits. Extremities reveal intact radial artery pulses bilaterally. There is 1+ nonpitting lower extremity edema of the feet, ankles, and pretibial regions. Results & Data ([facility]) Vital Signs (Past 12 Hours) Vital Signs Temp Pulse Pulse Resp BP Pulse Ox 01/31/21 11:35 36.6 C 82 20 126/80 94 01/31/21 08:04 36.6 C 83 17 120/81 96 01/31/21 08:00 83 Diagnostic Findings monitor and storage bin tender is benign. PG Care Time/CCT Total # of Minutes Spent Total Time Spent with Patient: Total time spent is greater than 50% in coordination of care (as documented) at patient's floor/unit and/or counseling patient: Coding Level of Care Code 91710 Subseq Hosp Care Lvl 3 Diagnoses Elevated troponin I level R77.8 CAD (coronary artery disease) I25.10 Ischemic cardiomyopathy I25.5 Sepsis A41.9
--- NOTE | 2021-01-31 17:43 | Billing Data ---
Date of Service January 31, 2021 Coding Level of Care Code D/C DAY MANAGEMENT >30 MINS
--- NOTE | 2021-02-09 15:15 | Coding Query ---
To promote full compliance with coding requirements relating to patient care, provider participation is requested in all cases of technical support agent uncertainty. Please assist us with the question(s) below: Coding Question(s): The diagnosis(es) below was documented in the H&P, then subsequently fell off all further documentation. Please indicate if it is still a possible diagnosis or ruled out. Physician's Response(s): PULMONARY EDEMA - (documented on H&P, and on the Discharge Summary under Discharge Plan, reason for visit area) ( ) Diagnosed and POA. Please Specify further below: ( ) Acute Pulmonary Edema ( ) Chronic or Unspecified Pulmonary Edema ( ) Other: Please Specify ( ) Diagnosed and not POA. Please Specify further below: ( ) Acute Pulmonary Edema ( ) Chronic or Unspecified Pulmonary Edema ( ) Other: Please Specify ( x ) Ruled out ( ) Other (please specify) POSSIBLE ACUTE EXACERBATION OF SYSTOLIC HEART FAILURE - (H&P DOCUMENTS, "With concerns for presentation of heart failure reduced ejection fraction acute exacerbation we will check an echocardiogram we will hold her spironolactone but use Lasix given 40 mg in the ER) ( ) Diagnosed and POA ( ) Diagnosed and not POA (x ) Ruled out ( ) Other (please specify) POSSIBLE ACUTE DIASTOLIC HEART FAILURE (H&P documents, "maybe acute diastolic failure from tachycardia from not taking her metoprolol") ( ) Diagnosed and POA ( ) Diagnosed and not POA ( x ) Ruled out ( ) Other (please specify) MTDD
== END 2021-01-31 17:35 | disposition home or self-care (01) | DRG 872 ==
LOC: ED 10:28 → SUATTDRO 13:01 → 2S 13:01